=== PATIENT | female | born 1945 | race Caucasian/White ===

== ENCOUNTER → 2017-05-01 | Outpatient (CLI) | payer OTHER, BC ==
[~2017-05-01] MED LIST: ALEVE220 MG PO; ANTIVERT25 MG PO; BENICAR20 MG PO; CIPROFLOXACIN500 M1 PO; COZAAR 50 MG TA50 M2 PO; KOMBIGLYZE XR1 EAC1 PO; KOMBIGLYZE XR1 EACH PO; LOVASTAT10 PO; LOVASTAT40 PO; MELATONIN5 M4 PO; MUCINEX TA600 MG/TA2 PO; NORCO 5-325 TA1 EACH PO; PREDNISONE 20 M20 M1 PO; PROVENTIL HFA6.7 G1 INH; SERTRALINE HCL50 MG PO; SYMBICORT160 MCG/4. INH; TESSALON PERLE100 MG PO; TRAMADOL 50 MG50 MG PO; VENTOLIN HFA 1818 GM INH; ZPAK PO
--- NOTE | ~2017-05-01 | EKG ---
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
== END ==
LOC: CV 11:23
DX: M47.894 Other spondylosis, thoracic region (principal); I51.7 Cardiomegaly; E11.9 Type 2 diabetes mellitus without complications; I10 Essential (primary) hypertension; E78.00 Pure hypercholesterolemia, unspecified; E66.01 Morbid (severe) obesity due to excess calories; G47.30 Sleep apnea, unspecified; Z68.44 Body mass index [BMI] 60.0-69.9, adult

== ENCOUNTER 2017-08-08 09:15 | Emergency (ER) | payer OTHER, BC ==
[~2017-08-08] VITALS: Ht 149.9 cm; Wt 113.4 kg
[~2017-08-08 09:15] MED LIST changes: +ASPIR 8181 MG PO; +CALCIUM CA1250 MG/5 PO; +CENTRUM MU9 MG/15 ML PO; +ENOXAPARIN150 MG/11 SUBQ; +FAMOTIDINE40 MG/5 ML PO; +FERROUS SU220 MG/52 PO; +FLORANEX GRANU1 EACH PO; +HYDROCORTISONE30 G9 TOP; +LOPRESSOR25 PO; +METFORMIN HCL500 MG PO; +MIRALAX17 GM PO; +NYAMYC15 GM TOP; +PACERONE 200 M200 M1 PO; +RESTORIL7.5 MG PO; +TRADJENTA5 MG PO; +VITAMIN B-1100 M2 PO; +VITAMIN B-12500 MCG PO; +VITAMIN D3400 UNIT PO; +ZOFRAN ODT4 MG DISSOLVE
[2017-08-08 09:56] LABS: ABSOLUTE NEUTROPHILS 4.8 thou/uL (1.4-8.2); BASOPHILS 0.8 % (0.0-2.0); EOSINOPHILS 1.8 % (0.0-3.0); HEMATOCRIT 43.2 % (37.0-47.0); HEMOGLOBIN 13.8 gm/dL (12.0-15.0); LYMPHOCYTES 21.7 % (24.0-44.0); MCH 28.4 pg (26.0-34.0); MCHC 31.9 g/dL (28.0-37.0); MCV 88.9 fL (80.0-100.0); MONOCYTES 9.6 % (1.0-8.0); PLATELET COUNT 232 thou/uL (150-400); POLYS 66.1 % (36.0-66.0); RBC 4.86 mil/uL (4.20-5.00); WBC 7.2 thou/uL (4.0-11.0)
[2017-08-08 09:59] LABS: CALCIUM 9.8 mg/dL (8.5-10.1); CREATININE 1.2 mg/dL (0.6-1.0)
[2017-08-08] MEDS ORDERED: COZAAR 25 MG TA25 M1 PO (10:42)
[2017-08-08] MEDS ORDERED: SYNTHROID25 MCG PO (10:43)
[2017-08-08 11:19] LABS: URINE BILIRUBIN NEGATIVE (Negative); URINE BLOOD TRACE (Negative); URINE CLARITY CLEAR; URINE COLOR YELLOW; URINE GLUCOSE-RANDOM* NEGATIVE (Negative); URINE KETONES NEGATIVE (Negative); URINE LEUKOCYTES-REFLEX 3+ (Negative); URINE NITRITE-REFLEX NEGATIVE (Negative); URINE PROTEIN (DIPSTICK) NEGATIVE (Negative); URINE UROBILINOGEN 0.2 E.U./dl (0.2-1.0)
[2017-08-08] MEDS ORDERED: NORCO 5-325 TA1 EACH PO (11:21)
[2017-08-08] MEDS ORDERED: SENNA-DOCUSATE1 EACH PO (11:21)
[2017-08-08 11:33] LABS: CASTS None Seen /LPF (None Seen); SQUAMOUS 0-3 Few /LPF (0-3); URINE RBC 0-2 Rare /HPF (0-2)
[2017-08-08 11:34] LABS: CRYSTALS None Seen /LPF (None Seen); WBC CLUMPS Moderate (None Seen)
[2017-08-08] MEDS ORDERED: KEFLEX500 M1 PO (12:01)
[2017-08-08 12:37] VITALS: BP 142/81
== END 2017-08-08 12:30 | disposition home or self-care (01) ==
LOC: ER 09:15
PROVIDERS: Emergency Medicine
DX: S30.0XXA Contusion of lower back and pelvis, initial encounter (principal); S70.02XA Contusion of left hip, initial encounter; N39.0 Urinary tract infection, site not specified; I10 Essential (primary) hypertension; E78.00 Pure hypercholesterolemia, unspecified; G47.30 Sleep apnea, unspecified; E11.9 Type 2 diabetes mellitus without complications; Z90.49 Acquired absence of other specified parts of digestive tract; Z90.710 Acquired absence of both cervix and uterus; Z88.5 Allergy status to narcotic agent; Z91.040 Latex allergy status; Z87.891 Personal history of nicotine dependence; W01.0XXA Fall on same level from slipping, tripping and stumbling without subsequent striking against object, initial encounter; Y93.89 Activity, other specified; Y92.89 Other specified places as the place of occurrence of the external cause; Y99.8 Other external cause status

== ENCOUNTER 2017-12-15 04:28 | Emergency (ER) | payer OTHER, BC ==
[~2017-12-15] VITALS: Ht 149.9 cm; Wt 99.3 kg
[~2017-12-15 04:28] MED LIST changes: +COZAAR 25 MG TA25 M1 PO; +KEFLEX500 M1 PO; +SENNA-DOCUSATE1 EACH PO; +SYNTHROID25 MCG PO
[2017-12-15] MEDS ORDERED: XARELTO10 MG PO (04:38)
[2017-12-15] MEDS ORDERED: LOPRESSOR50 PO (04:38)
[2017-12-15] MEDS ORDERED: CERTRALINE (04:41)
[2017-12-15] MEDS ORDERED: TRAMADOL 50 MG50 MG PO (04:41)
[2017-12-15] MEDS ORDERED: NORCO 5-325 TA1 EACH PO (05:17)
== END 2017-12-15 06:15 | disposition home or self-care (01) ==
LOC: ER 04:28
DX: S62.102A Fracture of unspecified carpal bone, left wrist, initial encounter for closed fracture (principal); S93.402A Sprain of unspecified ligament of left ankle, initial encounter; W01.0XXA Fall on same level from slipping, tripping and stumbling without subsequent striking against object, initial encounter; Y93.89 Activity, other specified; Y92.89 Other specified places as the place of occurrence of the external cause; Y99.8 Other external cause status; I10 Essential (primary) hypertension; E78.00 Pure hypercholesterolemia, unspecified; E11.9 Type 2 diabetes mellitus without complications; E66.2 Morbid (severe) obesity with alveolar hypoventilation; I48.91 Unspecified atrial fibrillation; Z87.891 Personal history of nicotine dependence; Z88.5 Allergy status to narcotic agent

== ENCOUNTER → 2019-11-19 | Outpatient (CLI) | payer OTHER ==
[~2019-11-19] MED LIST changes: +CERTRALINE; +LOPRESSOR50 PO; +XARELTO10 MG PO
== END ==
LOC: SJCVC 13:32
DX: Z01.818 Encounter for other preprocedural examination (principal); I48.21 Permanent atrial fibrillation; R94.31 Abnormal electrocardiogram [ECG] [EKG]; E78.00 Pure hypercholesterolemia, unspecified; E11.69 Type 2 diabetes mellitus with other specified complication; E66.9 Obesity, unspecified; D68.59 Other primary thrombophilia; Z90.49 Acquired absence of other specified parts of digestive tract; Z90.710 Acquired absence of both cervix and uterus; Z79.899 Other long term (current) drug therapy; Z87.891 Personal history of nicotine dependence

== ENCOUNTER → 2020-01-16 | Outpatient (CLI) | payer OTHER | LOC: SJCVCIMAG 12-24 07:40 | PROVIDERS: ATTEND Internal Medicine Cardiovascular Disease | DX: Z01.818 Encounter for other preprocedural examination (principal); I08.1 Rheumatic disorders of both mitral and tricuspid valves; I11.9 Hypertensive heart disease without heart failure; I49.3 Ventricular premature depolarization; I48.19 Other persistent atrial fibrillation; E11.9 Type 2 diabetes mellitus without complications; Z79.899 Other long term (current) drug therapy; Z87.891 Personal history of nicotine dependence ==

== ENCOUNTER → 2020-09-01 | Outpatient (CLI) | payer OTHER | LOC: SJCVC 12:48 | PROVIDERS: ATTEND Internal Medicine Cardiovascular Disease | DX: R94.31 Abnormal electrocardiogram [ECG] [EKG] (principal); I45.2 Bifascicular block; I48.21 Permanent atrial fibrillation; I10 Essential (primary) hypertension; E78.00 Pure hypercholesterolemia, unspecified; D68.59 Other primary thrombophilia; I42.9 Cardiomyopathy, unspecified; I77.1 Stricture of artery; E11.9 Type 2 diabetes mellitus without complications; E03.9 Hypothyroidism, unspecified; E66.01 Morbid (severe) obesity due to excess calories; G47.30 Sleep apnea, unspecified; F32.9 Major depressive disorder, single episode, unspecified; Z79.899 Other long term (current) drug therapy ==

== ENCOUNTER → 2020-09-15 | Outpatient (CLI) | payer OTHER | LOC: SJCVCIMAG 08:46 | PROVIDERS: ATTEND Internal Medicine Cardiovascular Disease | DX: I77.1 Stricture of artery (principal); I73.9 Peripheral vascular disease, unspecified; M79.604 Pain in right leg; M79.605 Pain in left leg; Z87.891 Personal history of nicotine dependence ==

== ENCOUNTER 2020-12-09 19:30 | Inpatient (IN) | payer OTHER ==
[~2020-12-09] VITALS: Ht 144.8 cm; Wt 91.2 kg
[~2020-12-09 19:30] MED LIST changes: -LOPRESSOR50 PO; +TOPROL XL100 MG PO
[2020-12-09 19:32] VITALS: BP 195/107
[2020-12-09 21:30] VITALS: BP 195/107
[2020-12-09 22:03] LABS: ABSOLUTE NEUTROPHILS 6.1 thou/uL (1.4-8.2); BASOPHILS 0.3 % (0.0-2.0); EOSINOPHILS 0.8 % (0.0-3.0); HEMATOCRIT 40.4 % (37.0-47.0); LYMPHOCYTES 16.1 % (24.0-44.0); MCH 29.1 pg (26.0-34.0); MCHC 32.2 g/dL (28.0-37.0); MCV 90.6 fL (80.0-100.0); PLATELET COUNT 198 thou/uL (150-400); POLYS 74.8 % (36.0-66.0); RBC 4.46 mil/uL (4.20-5.00); RDW 15.3 % (10.5-14.5); WBC 8.1 thou/uL (4.0-11.0)
[2020-12-09 22:26] LABS: ALBUMIN 3.2 g/dL (3.4-5.0); CALCIUM 8.7 mg/dL (8.5-10.1); CREATININE 1.2 mg/dL (0.6-1.0); POTASSIUM 4.9 mmol/L (3.5-5.1); TOTAL BILIRUBIN 0.5 mg/dL (0.2-1.0); TOTAL PROTEIN 7.2 g/dL (6.4-8.2)
--- NOTE | 2020-12-09 22:50 | NUR ---
ATTEMPTED TO GIVE REPORT AT 2250. WAS TOLD TO CALL BACK IN 5 MINS.
[2020-12-09 23:11] VITALS: BP 176/82
[2020-12-09 23:45] VITALS: BP 155/86
--- NOTE | 2020-12-10 04:33 | NUR ---
PT WAS ADMITTED TO THE UNIT FROM THE ER IN A STABLE CONDITION.ADMISSION HX,EDUCATION AND ASSESSMENT COMPLETED.PAIN MANAGED WITH MED.SPLINT ON HER L ARM,ICE BAG IN PLACE.EXTERNAL FEMALE CATH IN PLACE WITH ADEQUATE URINE OUTPUT.PT WITH HX OF AFIB,ON XARELTO.REDNESS TO HER BUTTOCKS,ZGUARD APPLIED.IVF INFUSING ORDERED.CALL LIGHT WITHIN REACH.
--- NOTE | 2020-12-10 07:06 | EKG ---
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 : 1945 Requested By: Maximus Singh Order Number: [id number] MD: Uday Cota Measurements Intervals [place] Rate: 92 P: VT: QRS: 174 QRSD: 94 T: 28 QT: 346 QTc: 429 Interpretive Statements Atrial fibrillation Anteroseptal infarct, age indeterminate Compared to ECG 05/04/2017 06:13:07 Myocardial infarct finding now present Ventricular premature complex(es) no longer present Right-axis deviation no longer present Electronically Signed On 12-10-2020 7:05:53 CDT by Uday Cota [email or web address] <ELECTRONICALLY SIGNED> By: Uday Cota MD, FAC 12/10/2005 32 32 Uday Cota MD, [facility] /EPI
--- NOTE | 2020-12-10 08:47 | NUR ---
Chart review. YOSEF visited with kam at bedside, she is A & o self, place and time. She has hx of fall, has [facility] duty from [employer] Sunday, sunday, and sunday for 2-3 hrs per day. 2nd time she as brook left arm. she was outside pulling weeds and fell. Had [facility] in past and is agreeable to both if needed. Lives alone at home. no stairs. has cane and walker. Manage own medication and drives vehicle. Has daughter maritza and grandshari jacinto in area if needs assistance. Yosef spoke with bedside nurse, patient going to require surgery per ortho. kam reported pain 20/10 and was tearful, cm passed on information to bedside nurse and hospitalist going to see patient. will cont following as needed for dc needs.
[2020-12-10 09:32] VITALS: BP 188/106
[2020-12-10 18:06] VITALS: BP 174/110
--- NOTE | 2020-12-10 18:30 | NUR ---
PT ASSESSED AT START OF SHIFT. VERY PAINFUL THIS AM BUT WAS ABLE TO GET MED CHANGED TO ALLOW GOOD PAIN RELIEF. PT ABLE TO SLEEP WELL AND IS FEELING MUCH BETTER. DR. LOPEZ IN TO SEE PT AND HAD MAINS AND SERVICE SUPERVISOR FROM [facility] HER LT WRIST. PLAN FOR SURGERY TOMORROW BUT NO TIME YET.
[2020-12-10 20:57] VITALS: BP 166/90
[2020-12-11] VITALS (7 sets, daily range): BP systolic 132–194; BP diastolic 61–113
--- NOTE | 2020-12-11 00:17 | NUR ---
PT WAS CONFUSED AT SHIFT CHANGE.SHE SATTED THAT SHE TALKED WITH DTR AT 1900 AND THOUGHT THAT IT WAS 0700.PT REORIENTED TO THE CURRENT TIME.PT VERY ANXIOUS TEARFUL ABOUT HER UPCOMING SX,EMOTIONAL SUPPORT GIVEN.L HAND STILL WITH A SPLINT,PT ABLE TO WIGGLE AND FEEL HER FINGERS WHEN TOUCHED.PT'S PAIN WELL CONTROLLED NOW WITH CURRENT MED.ICE PACK TO HER L ARM,ELEVATED WITH A PILLOW. EXT FEMALE CATH IN PLACE.PT NPO AT THIS TIME FOR SX LATER IN THE DAY.CALL LIGHT WITHIN REACH.
--- NOTE | 2020-12-11 08:26 | NUR ---
Assumed pt care at 7am.Pt in bed very anxious about going for surgery this am. Assurance given by rn. Received call from sebastián that pt will be picking up before 830am. Pt notified and also called her family.Assessment completed.vss. Oral med given for bp prior to pt left per bed for surgery at 0820.Will continue to monitor.
--- NOTE | 2020-12-12 01:10 | NUR ---
PT JORGE CLEAR LIQUIDS POST OP.PAIN MANGED WITH MED.PT OBSERVED TO BE CONFUSED WHEN SHE WOKE UP AT [place],REORIENTED.DRSG TO HER L WRIST DRY AND INTCAT,ELEVATED WITH PILLOW.ICE PACK TO HER L ARM.EXT FEMALE CATH IN PLACE.BLISTER NOTED TO HER R HIP,STILL INTACT.PT ON 2L/NC FOR COMFORT.CALL LIGHT WITHIN REACH.
[2020-12-12 03:15] VITALS: BP 158/95
[2020-12-12 05:42] LABS: POTASSIUM 4.1 mmol/L (3.5-5.1)
--- NOTE | 2020-12-12 09:25 | NUR ---
Assumed care of pt at 0700. Pt a&ox4. Pain controlled with prn pain meds. Dressing c/d/i. Pt states she takes tramadol bid at home. Provider paged. Awaiting call back. Call light within reach. Fall precautions in place. Will continue to monitor.
[2020-12-12] MEDS ORDERED: NORCO5 PO (10:41)
[2020-12-12 11:37] VITALS: BP 151/94
[2020-12-12 12:04] VITALS: BP 151/94
--- NOTE | 2020-12-13 12:08 | HC ---
[facility] [address] [place] [address] CONSULTATION Name: ROBERTO ORELLANA Room #: 443-P [facility] IN M.R.#: [id number] Admission: 12/09/20 Attend Phys: Sandy Vu Henderson Discharge: 12/12/20 Date of : 49 Report #: [id number] THIS REPORT FOR: cc: Bryant Sprague MD, Rene P. MD Deardorff, Valerie A. MD ~ DOC #: [id number] Anita Short MD DATE OF SERVICE: 12/10/2020 ORTHOPEDIC CONSULT NOTE REASON FOR CONSULTATION: Left wrist fracture. HISTORY OF PRESENT ILLNESS: The patient is a 75-year-old female who fell on the night of the late sustained a displaced distal radius fracture with DRUJ injury, was evaluated in the emergency department and due to pain level was unable to be discharged. She was then admitted for pain control and I was asked to see the patient. I saw the patient around noon on 12/10/2020. She reports left shoulder aching, but reports that she does not feel like she has any fractures in her left shoulder, reports significant hand pain. Reports some mild tingling in the fingers. PAST MEDICAL HISTORY: Significant for hypertension, hypothyroidism, and history of atrial fibrillation. ALLERGIES: CODEINE AND CONTRAST DYE. REVIEW OF SYSTEMS: NEUROLOGIC: Reports some mild tingling in her fingers on the left. MUSCULOSKELETAL: See HPI. MEDICATIONS: The patient reports taking Synthroid, losartan, Xarelto, another type of blood pressure medication she cannot recall and tramadol. Medical record also shows sertraline. SOCIAL HISTORY: She lives by herself in a fully handicapped accessible home, is right hand dominant. Does not use any ambulatory aids. Smokes and drinks very occasionally in social situations. SURGICAL HISTORY: Gastric bypass surgery. LABORATORY DATA: Laboratory studies done on the date of admission show white blood cell count 8.1, hemoglobin 13, hematocrit 40.4, platelet count 198. Chemistry on the date of admission shows a slightly elevated creatinine of 1.2, slightly elevated glucose of 119, and albumin is slightly low at 3.2. [facility] [address] [place] [address] CONSULTATION Name: ROBERTO ORELLANA Room #: 443-P [facility] IN [facility].#: [id number] Admission: 12/09/20 Attend Phys: Sandy Henderson Discharge: 12/12/20 Date of : 49 Report #: [id number] test is negative. PHYSICAL EXAMINATION: GENERAL: The patient is alert and oriented, interacts appropriately. She is a well-developed, well-nourished female in moderate distress when I saw her on Sunday. Minimal distress when I saw her on Sunday morning. On Sunday, she was lying in her bed. VITAL SIGNS: Most recent vital signs show temperature of 36.8, pulse rate 88, respiratory rate 18, blood pressure 144/78, pulse oximetry 96% on room air. EXTREMITIES: Examination of her right upper extremity, she is distally neurovascularly intact. Brisk capillary refill, grossly normal sensation and motor intact. Left upper extremity, on Sunday she was placed in a sugar tong splint, which increased her deformity and was creating tension on the ulnar side of her wrist creating significant amount of pain. The compartments were soft. She had some abrasions on the ulnar side of her wrist with no significant bleeding. She had some ecchymosis and edema to her wrist and fingers. She is able to wiggle her fingers and move her thumb. Grossly normal sensation and motor. Her elbow is nontender. The shoulder was nontender. Mild pain with range of motion of the shoulder. On Sunday morning when I saw her, she had been placed into a volar and dorsal slab splint. Reported significant improvement in her pain in her arm overnight and reportedly slept for eight hours. She still was neurovascularly intact, was able to wiggle her fingers and thumb more easily. Bilateral lower extremity exam: Sensation is grossly intact to light touch, grossly normal sensation and motor intact. No tenderness to palpation throughout the bilateral lower extremities or right upper extremity. RADIOGRAPHS: AP and lateral of the left hip is suboptimal. X-ray does not show any definite fracture. AP, oblique and scapular Y views of the shoulder show significant glenohumeral arthrosis with rotator cuff arthropathy. X-ray AP, lateral and oblique, of the left wrist shows a comminuted fracture of the metadiaphyseal junction of the radius with a small radial styloid fragment with significant ulnar angulation and moderate dissociation of the DRUJ. There is some small avulsion fragments from the ulnar styloid. IMPRESSION AND PLAN: Left distal radius fracture with significant deformity. The typical procedure as well as postoperative course was discussed with the patient. I recommend surgical stabilization with a volar approach to the radius. We discussed location of the incision, possible pinning of the distal radial ulnar joint. If the pins were placed, they will be removed at approximately the 6-week point. The risks, benefits, alternatives, and complications were discussed including but not limited to stiffness, infection, damage to vessels or nerves, nonunion, malunion, hardware failure, hardware irritation. She elects for surgical treatment. Questions were encouraged and answered to the best of my ability. [address] [place] [address] CONSULTATION Name: ROBERTO ORELLANA Room #: 443-P [facility] IN M.R.#: [id number] Admission: 12/09/20 Attend Phys: Sandy Henderson Discharge: 12/12/20 Date of : 49 Report #: [id number] Thank you very much for allowing me to participate in the care of this patient. MD CHRIS Melchor/LEO <ELECTRONICALLY SIGNED> By: Anita Shotr MD 12/13/20 1208 0716 1939 Anita Short MD /nt
--- NOTE | 2020-12-13 12:08 | O ---
[facility] [address] [place] [address] OPERATIVE REPORT Name: ROBERTO ORELLANA Room #: 443-P [facility] IN M.R.#: [id number] Admission: 12/09/20 Attend Phys: Sandy Womack Beatriz Discharge: 12/12/20 Date of : 49 Report #: [id number] THIS REPORT FOR: cc: Bryant Sprague MD, Rene P. MD Deardorff, Valerie A. MD ~ DOC #: [id number] Anita Short MD DATE OF SERVICE: 12/11/2020 PREOPERATIVE DIAGNOSIS: Left distal radius fracture, intra-articular with 2 fragments, possible distal radial ulnar joint disruption. POSTOPERATIVE DIAGNOSIS: Left distal radius fracture, intra-articular with 2 fragments, possible distal radial ulnar joint disruption. PROCEDURE PERFORMED: Open reduction and internal fixation left distal radius fracture, intra-articular, 2 fragments. SURGEON: Anita Short MD. TYPE OF ANESTHESIA: General mask anesthesia. ESTIMATED BLOOD LOSS: Minimal. TOURNIQUET TIME: 70 minutes. COMPLICATIONS: None. CONDITION: Stable. DISPOSITION: To the recovery room. IMPLANTS USED: Synthes distal radius extraarticular plate. INDICATIONS: The patient is a 75-year-old female with the above-mentioned diagnosis. She elects for operative treatment. The risks, benefits, alternatives and complications were discussed including but not limited to infection, damage to vessels or nerves, and incomplete relief or worsening of any symptoms, nonunion, malunion, hardware failure, hardware irritation. Informed consent was obtained. The correct extremity was identified and labeled by myself after verbal confirmation of the patient as well as visual confirmation and signed informed consent. DESCRIPTION OF PROCEDURE: The patient was brought back to the operating room and placed in the supine position. She received preoperative antibiotics. [address] [address] OPERATIVE REPORT Name: ORELLANAROBERTO Room #: 443-P [facility] IN M.R.#: [id number] Admission: 12/09/20 Attend Phys: Sandy Henderson Discharge: 12/12/20 Date of : 49 Report #: [id number] Tourniquet was placed over padding. The left lower extremity was sterilely prepped and draped in the usual fashion. Final timeout was taken to verify correct patient, operative procedure, operative site, all concurred. The arm was elevated, exsanguinated and the tourniquet inflated. Next, a volar approach was done at the distal radius over the FCR tendon. Of note, prior to the surgical incisions, the ulnar-sided wounds were evaluated. These were superficial abrasions. The dissection was carried down through subcutaneous tissue with tenotomy scissors. The FCR tendon sheath was identified and incised. The subsheath was incised and the volar contents were retracted ulnarly. The area was cleaned of clot and debris. The brachioradialis was creating significant difficulty in restoring alignment, so it was lengthened. A lobster claw was placed around the proximal portion of the radius in order to supinate the forearm. Her bone was fairly small. Next, fluoroscopy was brought in and the fracture was reduced quite nicely. The ulnar column was able to be reduced nearly anatomically. There was a very large gap in the cortical and cancellous bone on the radial side at this level. Next, an extraarticular plate was placed on to the bone. The position was checked under fluoroscopy and a cortical screw was placed in the gliding hole proximally. Next, the fracture was reduced due to the difficulty in maintaining the reduction. Two K-wires were placed into the 2 of the distal holes in the plate. Once this was performed, the fracture reduction was able to be maintained. Two distal locking screws were drilled, measured, and appropriate size screws were placed and the wires were removed and the other two screws were drilled, measured, and the appropriate size screws were placed. The plate was fitted nicely down to the bone and the alignment was appropriate. It should be noted that the patient has had multiple fractures in that arm. I reviewed the position of her radius after the most recent fracture in 2018, which showed a significant amount of radial shortening and loss of radial inclination as her baseline prior to this new injury. The AP and lateral views showed good position of the fracture and good position of the screws, taking care to avoid any dorsal penetration of the bone. Next, two locking screws were placed proximally. These were found to be in good position and were stable. The wound was then thoroughly irrigated. AP, lateral tilt and live fluoroscopic views showed good position of the fracture and the hardware. The DRUJ was assessed. It was stable in all planes of rotation and on the lateral view, there was no dislocation with stress on the DRUJ. I elected to not place pins across it and to maintain her in supination. The wound was then thoroughly irrigated. Approximately, 0.8 mL of demineralized bone matrix was placed into the defect. The skin was then closed with 4-0 nylon suture. The wound was dressed with Xeroform including the ulnar-sided abrasions and sterile gauze. She was placed in a bulky dressing and a volar and dorsal slab splint with a dorsal slab splint went all the way past the elbow in order to maintain some level of supination. She was placed into full supination. All fingers were pink and brisk capillary refill at the conclusion of the case after deflation of tourniquet down, after application of the dressing. All sponge and needle counts were correct. The [facility] [address] [place] [address] OPERATIVE REPORT Name: ROBERTO ORELLANA Room #: 443-P [facility] IN .R.#: [id number] Admission: 12/09/20 Attend Phys: Sandy Henderson Discharge: 12/12/20 Date of : 49 Report #: [id number] patient transferred to postop recovery in stable condition. MD CHRIS Melchor/THOR <ELECTRONICALLY SIGNED> By: Anita Short MD 12/13/20 1208 0941 1046 Anita Short MD /nt
== END 2020-12-12 14:35 | disposition home health service (06) | DRG 512 ==
LOC: ER 19:30 → 4S 21:21 → EROBS 21:21 → 4S 12-10 00:03
PROVIDERS: Nurse Practitioner; Orthopaedic Surgery Hand Surgery; ADMIT Hospitalist; ATTEND Hospitalist
PROC: 2W3BX1Z Immobilization of Left Upper Arm using Splint (ICD-10-PCS; 2020-12-09)
PROC: 0PSJ04Z Reposition Left Radius with Internal Fixation Device, Open Approach (ICD-10-PCS; principal; 2020-12-11)
DX: S52.572A Other intraarticular fracture of lower end of left radius, initial encounter for closed fracture (principal); I10 Essential (primary) hypertension; E78.00 Pure hypercholesterolemia, unspecified; I48.91 Unspecified atrial fibrillation; G47.33 Obstructive sleep apnea (adult) (pediatric); E11.9 Type 2 diabetes mellitus without complications; E78.5 Hyperlipidemia, unspecified; E03.9 Hypothyroidism, unspecified; F41.9 Anxiety disorder, unspecified; F32.9 Major depressive disorder, single episode, unspecified; W18.39XA Other fall on same level, initial encounter; Z20.822 Contact with and (suspected) exposure to COVID-19; Z99.81 Dependence on supplemental oxygen; Z90.710 Acquired absence of both cervix and uterus; Z90.49 Acquired absence of other specified parts of digestive tract; Z86.718 Personal history of other venous thrombosis and embolism; Z98.84 Bariatric surgery status; Z79.899 Other long term (current) drug therapy; Z88.5 Allergy status to narcotic agent; Z91.041 Radiographic dye allergy status; Y93.89 Activity, other specified; Y92.89 Other specified places as the place of occurrence of the external cause; Y99.8 Other external cause status
CPT/HCPCS: 10195; 50101; 50386; 51008; 56526; 57006; 57091; 57178; 58815; 58816; 58817; 58819; 58820; 62110; 62900; 70005

== ENCOUNTER 2021-02-06 20:43 | Emergency (ER) | payer OTHER ==
[~2021-02-06] VITALS: Ht 157.5 cm; Wt 81.7 kg
--- NOTE | ~2021-02-06 | EMS ---
[address] [address] EMS Patient Care Report Name: ROBERTO ORELLANA Room #: DEP STEVEN James#: [id number] Admission: 02/06/21 Attend Phys: Discharge: 02/06/21 Date of : 49 Report #: [id number] THIS REPORT FOR: //name// Report Transmitted: 02/07/2021 14:50 EMS Care Summary [facility] Incident [id number] @ 02/06/2021 19:52 Incident Location [facility] [address] [place] [address] Patient ROBERTO MITCHELL Female, 75 Years 1945 Patient Address [address] [place] [address] Patient History Atrial Fibrillation, Patient Allergies No known allergies, Patient Medications None Reported, Chief Complaint MY LEFT LEG HURTS Disposition Transported No Lights/[place] Dispatch Reason Sick Person Transported To [facility] Narrative SQUAD 52 DISPATCHED TO A SICK CASE AOS TO FIND A 75 Y/O FEMALE SITTING UPRIGHT IN HER LIVINGROOM STATING THAT ABOUT 30 MIN AGO HER LEFT LEG STARTED HURTING AND SHE COMPARED THE FEELING TO A [address] [address] EMS Patient Care Report Name: ROBERTO ORELLANA Room #: DEP Erika#: [id number] Admission: 02/06/21 Attend Phys: Discharge: 02/06/21 Date of : 49 Report #: [id number] MALICK HORSE. PT DENIES ANY RECENT TRAUMA, LOC, BORGES, NVD, SOB, CP WITH A GCS OF 15. PT DENIES THE PAIN RADIATING ANYWHERE ELSE. INITIAL EXAM REVEALED AIRWAY INTACT,PUPILS PERRL, TRACHEA MID-LINE, LUNG SOUNDS CLEAR X 4 BILAT, ABD SNT WITH NO MASES NOTED, STRONG DISTAL PULSES PRESENT IN ALL EXTREMITIES. ALL VS ARE ELEVATED FO RPT AT THIS TIME. PT STATED THAT SHE STOPPED TAKING HER A-FIB MEDS AND HAS YET TO TAKE HER HIGH BP MEDS TODAY. WHILE EN ROUTE RADIO REPORT GIVEN TO [facility], ONGOING EXAM PERFORMED AND NO OTHER ISSUES WERE NOTED, 18G IV PLACED IN HER RAC AND FLUSHED WITH 10ML OF NACI. ALL VS REASSESSED AND ALL VS REMAINED UNCHANGED AT THIS TIME. WE ARRIVED AT OUR DESTINATION AND TRANSFERRED PT CARE OVER TO RN Initial Vitals @19:59P: 88,R: 18,BP: 190/100,Pain: 2/10,GCS: 15,SpO2: 98,Revised Trauma: 12, @20:09P: 98,R: 19,BP: 188/74,Pain: 4/10,GCS: 15,SpO2: 99,Revised Trauma: 12,SD Suspected: false Assessments @20:03MENTAL:No Abnormalities,SKIN:No Abnormalities,HEENT:Head/Face: No Abnormalities,Eyes: No Abnormalities,Neck/Airway: No Abnormalities,LUNG SOUNDS:General: No Abnormalities,Left Upper: No Abnormalities,Right Upper: No Abnormalities,Left Lower: No Abnormalities,Right Lower: No Abnormalities,ABDOMEN:General: No Abnormalities,Left Upper: No Abnormalities,Right Upper: No Abnormalities,Left Lower: No Abnormalities,Right Lower: No Abnormalities,PELVIS//GI:No Abnormalities,EXTREMITIES:Left Arm: No Abnormalities,Right Arm: No Abnormalities,Left Leg: No Abnormalities,Right Leg: No Abnormalities,PULSE:NEURO:No Abnormalities, Impression Extremity Pain Procedures @20:08Saline Lock 10cc (18 ga) Site: Forearm-LeftResponse: UnchangedSucceeded@20:08ALS AssessmentResponse: UnchangedSucceeded@20:093-Lead ECGResponse: UnchangedSucceeded@20:0915-Lead ECGResponse: UnchangedSucceeded Timeline 19:49,Call Received 19:49,Psap Call 19:52,Dispatched 19:53,En Route 19:54,Initial Responder On Scene 19:56,On Scene 19:57,At Patient 19:59,BP: 190/100 M,PULSE: 88,RR: 18 R,SPO2: 98 Ox,ETCO2: ,BG: ,PAIN: 2,GCS: 15, 20:08,Saline Lock 10cc 18 ga Site: Forearm-Left,Response: UnchangedSucceeded, [facility] [address] [place] [address] EMS Patient Care Report Name: KIMANI ORELLANACHARLESRENATO BRIANNA Room #: DEP Erika#: [id number] Admission: 02/06/21 Attend Phys: Discharge: 02/06/21 Date of : 49 Report #: [id number] 20:08,ALS Assessment,Response: UnchangedSucceeded, 20:09,3-Lead ECG,Response: UnchangedSucceeded, 20:09,15-Lead ECG,Response: UnchangedSucceeded, 20:09,BP: 188/74 M,PULSE: 98,RR: 19 R,SPO2: 99 Ox,ETCO2: ,BG: ,PAIN: 4,GCS: 15, 20:18,Depart Scene 20:40,At Destination 20:49,Call Closed Disclaimer v1.1 Copyright 2020 [employer] This EMS Care Summary contains data elements from the applicable legal record (which may be displayed differently). It is designed to provide pertinent information for the following purposes: continuity of care, clinical quality, and state data reporting. The complete legal record is available to ED staff and administrators of the receiving hospital in ES's Patient Tracker. All data is provided "as is."
[~2021-02-06 20:43] MED LIST changes: +NORCO5 PO
[2021-02-06 21:26] LABS: HEMATOCRIT 37.4 % (37.0-47.0); HEMOGLOBIN 12.5 gm/dL (12.0-15.0); MCH 29.6 pg (26.0-34.0); MCHC 33.4 g/dL (28.0-37.0); MCV 88.7 fL (80.0-100.0); RBC 4.22 mil/uL (4.20-5.00); RDW 15.2 % (10.5-14.5); WBC 5.4 thou/uL (4.0-11.0)
[2021-02-06] MEDS ORDERED: LEVO-T75 MCG PO (21:34)
[2021-02-06 21:38] LABS: ANION GAP 8 mmol/L (7-16); BUN 34 mg/dL (7-18); CALCIUM 8.7 mg/dL (8.5-10.1); CHLORIDE 105 mmol/L (98-107); CO2 30 mmol/L (21-32); CREATININE 1.4 mg/dL (0.6-1.0); GLUCOSE 109 mg/dL (74-106); POTASSIUM 4.1 mmol/L (3.5-5.1); SODIUM 143 mmol/L (136-145)
[2021-02-06 21:49] LABS: ALBUMIN 2.8 g/dL (3.4-5.0); SGOT 23 U/L (15-37); SGPT 19 U/L (30-65); TOTAL BILIRUBIN 0.4 mg/dL (0.2-1.0); TOTAL PROTEIN 6.9 g/dL (6.4-8.2); TROPONIN-I <0.06 ng/mL (<0.06)
[2021-02-06 23:12] VITALS: BP 155/90
--- NOTE | 2021-02-07 07:35 | EKG ---
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 : 1945 Requested By: Kailyn Swain Order Number: [id number] MD: Uday Cota Measurements Intervals [place] Rate: 84 P: CT: QRS: 175 QRSD: 99 T: 24 QT: 356 QTc: 421 Interpretive Statements Atrial fibrillation Ventricular premature complex Right axis deviation Consider anterior infarct Compared to ECG 12/09/2020 22:33:14 Ventricular premature complex(es) now present Right-axis deviation now present Myocardial infarct finding still present Electronically Signed On 02-07-2021 7:35:15 CDT by Uday Cota [email or web address] <ELECTRONICALLY SIGNED> By: Uday Cota MD, [facility] 02/07/21734 55 55 Uday Cota MD, [facility] /EPI
== END 2021-02-06 23:26 | disposition home or self-care (01) ==
LOC: ER 20:43
PROVIDERS: Nurse Practitioner Family
DX: M79.605 Pain in left leg (principal); I10 Essential (primary) hypertension; E78.00 Pure hypercholesterolemia, unspecified; E11.9 Type 2 diabetes mellitus without complications; I48.91 Unspecified atrial fibrillation; Z90.49 Acquired absence of other specified parts of digestive tract; Z90.710 Acquired absence of both cervix and uterus; Z79.899 Other long term (current) drug therapy; Z87.891 Personal history of nicotine dependence; Z88.6 Allergy status to analgesic agent

== ENCOUNTER → 2021-03-25 | Outpatient (CLI) | payer OTHER ==
[~2021-03-25] MED LIST changes: +LEVO-T75 MCG PO
== END ==
LOC: NUC 13:31
PROVIDERS: ATTEND Family Medicine
DX: M81.0 Age-related osteoporosis without current pathological fracture (principal); Z78.0 Asymptomatic menopausal state

== ENCOUNTER 2021-04-11 01:05 | Inpatient (IN) | payer OTHER ==
[~2021-04-11] VITALS: Ht 144.8 cm; Wt 94.1 kg
[2021-04-11 01:07] VITALS: BP 180/75
[2021-04-11 01:49] LABS: ABSOLUTE NEUTROPHILS 7.2 thou/uL (1.4-8.2); BASOPHILS 0.6 % (0.0-2.0); EOSINOPHILS 0.2 % (0.0-3.0); HEMATOCRIT 43.6 % (37.0-47.0); HEMOGLOBIN 14.5 gm/dL (12.0-15.0); LYMPHOCYTES 13.3 % (24.0-44.0); MCH 29.4 pg (26.0-34.0); MCHC 33.2 g/dL (28.0-37.0); MCV 88.3 fL (80.0-100.0); MONOCYTES 8.3 % (1.0-8.0); PLATELET COUNT 224 thou/uL (150-400); POLYS 77.6 % (36.0-66.0); RBC 4.93 mil/uL (4.20-5.00); RDW 15.6 % (10.5-14.5); WBC 9.3 thou/uL (4.0-11.0)
[2021-04-11 01:56] LABS: CALCIUM 9.1 mg/dL (8.5-10.1); CREATININE 1.3 mg/dL (0.6-1.0)
[2021-04-11 01:57] LABS: POTASSIUM 5.2 mmol/L (3.5-5.1)
[2021-04-11 02:05] LABS: DIRECT BILIRUBIN 0.1 mg/dL (<0.1-0.2); TOTAL BILIRUBIN 0.8 mg/dL (0.2-1.0)
[2021-04-11 02:43] LABS: URINE BILIRUBIN NEGATIVE (Negative); URINE BLOOD 3+ (Negative); URINE CLARITY CLEAR; URINE COLOR YELLOW; URINE GLUCOSE-RANDOM* NEGATIVE (Negative); URINE KETONES NEGATIVE (Negative); URINE LEUKOCYTES-REFLEX 3+ (Negative); URINE NITRITE-REFLEX NEGATIVE (Negative); URINE PROTEIN (DIPSTICK) NEGATIVE (Negative); URINE UROBILINOGEN 0.2 E.U./dl (0.2-1.0)
[2021-04-11 03:12] LABS: CASTS None Seen /LPF (None Seen); CRYSTALS None Seen /LPF (None Seen); MUCUS 0-3 Light strn/LPF (None Seen); SQUAMOUS 0-3 Few /LPF (0-3); URINE RBC 3-10 Few /HPF (NONE SEEN)
[2021-04-11] MEDS ORDERED: METOPROLOL SUC100 MG PO (05:59)
[2021-04-11] MEDS ORDERED: XARELTO20 MG PO (05:59)
--- NOTE | 2021-04-11 07:20 | EKG ---
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: : 1945 Requested By: Wyatt Shafer Order Number: [id number] MD: Uday Cota Measurements Intervals [place] Rate: 88 P: [place]: QRS: 173 QRSD: 96 T: 13 QT: 361 QTc: 437 Interpretive Statements Atrial fibrillation Right axis deviation Low voltage, precordial leads Borderline T abnormalities, inferior leads Compared to ECG 02/06/2021 20:56:11 Low QRS voltage now present T-wave abnormality now present Ventricular premature complex(es) no longer present Electronically Signed On 04-11-2021 7:20:29 CDT by Uday Cota [email or web address] <ELECTRONICALLY SIGNED> By: Uday Cota MD, FACC 04/11/21 0720 1 0142 Uday Cota MD, FAC /EPI
[2021-04-11 11:44] VITALS: BP 140/85
[2021-04-11 11:45] VITALS: BP 146/76
[2021-04-11 12:15] VITALS: BP 117/60
[2021-04-11 16:20] VITALS: BP 122/68
--- NOTE | 2021-04-11 18:15 | NUR ---
PT ADMITTED FROM ER. ADMISSION HX AND ASSESSMENT COMPLETED. PT ORIENTED TO THE ROOM AND THE CALL LIGHT SYSTEM. NEW ORDERS NOTED. PRN PAIN MED GIVEN WITH PARTIAL RELIEF. NO CONCERNS AT THIS TIME.
[2021-04-11 20:27] VITALS: BP 126/64
--- NOTE | 2021-04-12 02:50 | NUR ---
ASSUMED PT CARE THIS PM. PT IS ALERT AND ORIENTEDX4. PT IS SOMETIMES CONFUSED AND WAS INCONTINENT. PT INSISTED ON WEARNG BRIEFS IN BED. PT HAS DISTENDED ABD BUT DENIED ANY FORM OF CONGESTION/CONSTIPATION. PT IS ON RA. PT IS CURRENTLY ON NPO. FALL PRECAUTIONS IN PLACE. WILL CONTINUE TO MONITOR.
[2021-04-12 05:44] LABS: HEMATOCRIT 41.9 % (37.0-47.0); HEMOGLOBIN 13.4 gm/dL (12.0-15.0); MCH 28.7 pg (26.0-34.0); MCHC 31.9 g/dL (28.0-37.0); MCV 90.1 fL (80.0-100.0); RBC 4.65 mil/uL (4.20-5.00); RDW 15.5 % (10.5-14.5); WBC 6.8 thou/uL (4.0-11.0)
[2021-04-12 05:52] LABS: CALCIUM 8.6 mg/dL (8.5-10.1); CREATININE 1.1 mg/dL (0.6-1.0); POTASSIUM 3.9 mmol/L (3.5-5.1)
--- NOTE | 2021-04-12 07:29 | EKG ---
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 04/12/21 0729 15 15 Uday Cota MD, FACC /EPI
[2021-04-12 08:03] VITALS: BP 118/72
[2021-04-12 16:47] VITALS: BP 108/46
--- NOTE | 2021-04-12 18:38 | NUR ---
ASSUMED CARE OF PT AT 0700. PT IS ALERT AND ORIENTED, VSS THROUGHOUT THE AM. PT IS NPO FOR HERNIA REPAIR PROCEDURE TODAY AND PRESENTS WITH A LARGE UMBILICAL HERNIA WITH MULTIPLE LOOPS, ABDOMEN EXTREMELY DISTENDED. PT WAS AT HERNIA REPAIR PROCEDURE THROUGHOUT THE DAY UNTIL ABOUT 1530, ANOTHER RN TOOK REPORT FROM PACU NURSE. THROUGHOUT THE AFTERNOON PT HAS BEEN EXTREMELY ANXIOUS, VSS, AND WEARING ABDOMINAL BINDER WITH SIGNIFICANTLY LESS DISTENSION. PT IS FEELING HELPLESS AND WORRIED ABOUT PAIN CONTROL. REASSURED PT AND UPDATED WIRE WINDING MACHINE TENDER RN, WILL CONT TO MONITOR
[2021-04-12 19:22] VITALS: BP 104/58
--- NOTE | 2021-04-13 06:09 | NUR ---
ASSUMED CARE OF PT AT SHIFT CHANGE. PT IS AOX4 BUT CAN BE FORGETFUL. FALL PRECAUTION IN PLACE. EXTERNAL FEMALE CATH IN PLACE. PT REPORTED SOME ABD PAIN; PRN PAIN MEDS PROVIDED. AVAIABLE PAIN MEDS ARE UNABE TO KEEP PT COMFORTABLE; OT EXTRA DOSE ORDERED AND ADMINISTERED. PT WAS NPO THIS SHIFT. PT DENIED NAUSEA OR SOA. ASSESSMENT CHARTED. PT WAS ABLE TO GET COMFORTABLE AND SLEEP PART OF THE SHIFT. VSS AND NO S/S OF ACUTE DISTRESS. WILL CONTINUE TO MONITOR.
--- NOTE | 2021-04-13 06:49 | EKG ---
[address] [place] [address] ELECTROCARDIOGRAM REPORT Name: ROBERTO ORELLANA Room #: 455- ADM IN M.R.#: [id number] Admission: 04/11/21 Attend Phys: Sandy Henderson Discharge: Date of : 49 Report #: [id number] [facility] Test Date: 2021-04-12 Test Time: 15:02:00 Pat Name: ROBERTO ORELLANA Department: Room: [facility] 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: : 1945 Requested By: Sandy Henderson Order Number: [id number] MD: Uday Cota Measurements Intervals [place] Rate: 164 P: [place]: QRS: 177 QRSD: 91 T: 5 QT: 304 QTc: 502 Interpretive Statements Atrial fibrillation with rapid V-rate Low voltage, precordial leads Consider right ventricular hypertrophy Probable anteroseptal infarct, old Compared to ECG 04/11/2021 13:16:08 Low QRS voltage now present Myocardial infarct finding now present Electronically Signed On 04-13-2021 6:49:19 CDT by Uday Cota [email or web address] <ELECTRONICALLY SIGNED> By: Uday Cota MD, FACC 04/13/21 0649 1502 1502 Uday Cota MD, [facility] /EPI
--- NOTE | 2021-04-13 06:49 | EKG ---
[place] [address] [address] [facility] [place] [address] ELECTROCARDIOGRAM REPORT Name: KIMANI ORELLANACHARLESRENATO BRIANNA Room #: 455- ADM IN M.R.#: [id number] Admission: 04/11/21 Attend Phys: Sandy Henderson Discharge: Date of : 49 Report #: [id number] [facility] Test Date: 2021-04-12 Test Time: 15:06:13 Pat Name: ROBERTO ORELLANA Department: Room: [facility] Gender: F Neurological Surgeon: : 1945 Requested By: Sandy Henderson Order Number: [id number] MD: Uday Cota Measurements Intervals [place] Rate: 99 P: [place]: QRS: 178 QRSD: 102 T: 31 QT: 392 QTc: 504 Interpretive Statements Atrial fibrillation Low voltage, precordial leads Probable right ventricular hypertrophy Prolonged QT interval Compared to ECG 04/12/2021 15:02:00 Prolonged QT interval now present Electronically Signed On 04-13-2021 6:49:34 CDT by Uday Cota [email or web address] <ELECTRONICALLY SIGNED> By: Uday Cota MD, [facility] 04/13/21 0649 05 150 Uday Cota MD, [facility] /EPI
[2021-04-13 06:53] LABS: HEMATOCRIT 38.9 % (37.0-47.0); HEMOGLOBIN 12.6 gm/dL (12.0-15.0); MCH 29.1 pg (26.0-34.0); MCHC 32.5 g/dL (28.0-37.0); MCV 89.7 fL (80.0-100.0); RBC 4.34 mil/uL (4.20-5.00); RDW 15.4 % (10.5-14.5); WBC 8.4 thou/uL (4.0-11.0)
[2021-04-13 07:27] LABS: CREATININE 1.7 mg/dL (0.6-1.0); POTASSIUM 4.4 mmol/L (3.5-5.1)
[2021-04-13 07:29] VITALS: BP 95/62
--- NOTE | 2021-04-13 14:59 | NUR ---
PT ADMITTED RELATED TO SBO; UTI; SAPNA. CM REVIEWED CHART AND SPOKE WITH CARE TEAM. CM MET WITH PT AT BEDSIDE THIS DAY. PT APPEARED TO BE A&O X4. CM ROLE INTRODUCED. PT INDICATED SHE RESIDES ALONE IN A HOUSE WITH 2 STEPS TO ENTER AND NO STEPS SHE USES INSIDE. PT INDICATED THAT SHE HAS A 4WW FOR USE AT HOME SHE HAS A WC WELL SHOULD SHE NEEDS IT. PT INDICATED HE HOUSE IS HANDICAP ACCESSABLE WITH WALK IN SHOWERS AND GRABBARS. 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 PT DOES GET ASSISTANCE FROM CAREGIVER FOR BATHING. PT HAS CAREGIVER SERVICES PAID FOR BY THE [place] THROUGH [facility]. 3 HRS MON, 2 HRS , 2 HRS , AND 3 SUNDAY. PT INDICATED SHE DRIVES HERSELF TO APPTS. PT'S DTR LIVES NEXT DOOR. PT HAS A LIFE ALERT AND A PRACHI IN THE HOME. PT STATED THAT SHOULD SHE NEED HH SERVICES UPON DC SHE WOULD LIKE TO USE [facility]. PT HAD SURGERY FOR SBO YESTERDAY. CM FOLLOWING REGARDING DC PLANNING.
[2021-04-13 15:44] VITALS: BP 102/71
--- NOTE | 2021-04-13 16:52 | NUR ---
Pt A & O x4 with confusion at times noted. Pt VS stable. pt received PRN pain medications as requested by pt and also received medications as ordered. Pt passed gas once this shift. Pt is room air. Pt is able to make needs known
[2021-04-13 19:51] VITALS: BP 133/70
--- NOTE | 2021-04-14 05:42 | NUR ---
Pt. rested quietly at intervals during the night when checked on during frequent rounds. She c/o abdominal pain and pain meds given (see emar) with some relief noted. Pt. did have a moderate amount of yellowish colored emesis and prn zofran given (see emar) with some relief. Dressing to her abdomen is intact.
[2021-04-14 07:15] VITALS: BP 120/49
[2021-04-14] MEDS ORDERED: DULCOLAX STOOL100 M1 PO (09:32)
--- NOTE | 2021-04-14 11:39 | NUR ---
Nutrition: Triggered for high BMI. Noted pt with hx gastric sleeve, 2017. She has lost 87 lb (30%) in the last 4 years. 20 lb loss x last 2 years. Currently NPO for SBO 2' hernia. S/p laperotomy for lysis of adhesions causing the SBO. Pt asleep at time of visit. Will follow up for any education needs. Low nutrition risk.
[2021-04-14 12:49] LABS: HEMATOCRIT 39.7 % (37.0-47.0); HEMOGLOBIN 12.8 gm/dL (12.0-15.0); MCHC 32.4 g/dL (28.0-37.0); MCV 89.6 fL (80.0-100.0); RBC 4.42 mil/uL (4.20-5.00); RDW 15.6 % (10.5-14.5); WBC 9.5 thou/uL (4.0-11.0)
[2021-04-14 13:00] LABS: CALCIUM 8.1 mg/dL (8.5-10.1); CREATININE 1.3 mg/dL (0.6-1.0)
[2021-04-14 15:25] VITALS: BP 115/84
--- NOTE | 2021-04-14 15:42 | NUR ---
NEW POST OP THERAPY ORDERS PUT IN THIS AM. PT INDICATED THAT SHE WAS TOO NAUSEAOUS TO PARTICIPATE THIS DAY. CM FAXED REFERRAL TO [facility] PT GETS PD SERVICES THROUGH THEM AND WANTED HH THROUGHT THEM UPON DC. CM FOLLOWING REGARDING DC PLANNING.
--- NOTE | 2021-04-14 19:47 | NUR ---
Assumed pt care this am, pain is managed with medications. Pt refused to work [facility] physical therapy and OT. Maintained NPO w/ small sips pf water with medications. Nausea and vomiting noted, partial relief is noted with meds. Dressing c/d/i, POC followed. Endorsed to the night nurse.
[2021-04-14 20:01] VITALS: BP 138/74
--- NOTE | 2021-04-15 04:17 | NUR ---
Pt A/OX4,VSS.C/o nausea/abd pain, medicated per EMAR with relief reported and pt been resting quietly at night. Purewick in place with yellow urine. Dsg on midline incision in place,yany intact,lap istes C/D/I.Fall precautions in place. Continues to be NPO with sips of water. Will continue to monitor pt.
[2021-04-15 06:35] LABS: HEMATOCRIT 37.3 % (37.0-47.0); HEMOGLOBIN 12.4 gm/dL (12.0-15.0); MCH 29.7 pg (26.0-34.0); MCHC 33.2 g/dL (28.0-37.0); MCV 89.5 fL (80.0-100.0); RBC 4.17 mil/uL (4.20-5.00); RDW 15.4 % (10.5-14.5)
[2021-04-15 06:49] LABS: CALCIUM 8.3 mg/dL (8.5-10.1); CREATININE 1.2 mg/dL (0.6-1.0)
[2021-04-15 07:48] VITALS: BP 150/85
--- NOTE | 2021-04-15 15:51 | NUR ---
PT WORKED WITH PT FOR THE FIRST TIME THIS DAY. PT LIMITED BY PAIN AND N/V. PT INDICATED SHE IS HOPING TO DC HOME WITH HOME HEALTH THE BEGINING OF NEXT WEEK. SHOULD PT BE DC READY THIS WEEKEND. FAX ORDERS TO [facility] CALL . CM FOLLOWING REGARDING DC PLANNING.
[2021-04-15 16:58] VITALS: BP 115/71
[2021-04-15 19:36] VITALS: BP 131/80
--- NOTE | 2021-04-15 19:56 | NUR ---
Assumed pt care this am, vomited grass green liquid 2x, MD informed. Pain is managed with medications partial relief is noted. N/V relief achieved after compazine was given. MaintainedNPO with small sips of water. Dressing c//d/i, abd binder in place. POC followed, endorsed to the night nurse.
--- NOTE | 2021-04-16 04:18 | NUR ---
Pt. rested quietly at intervals during the night when checked on during frequent rounds. She has been given jpain meds (see emar) for c/o abdominal pain with some relief noted. Zofran given for c/o nausea with relief. Bed alarm is on. Not passed any flatus this shift.
[2021-04-16 05:41] LABS: HEMATOCRIT 36.7 % (37.0-47.0); MCH 29.6 pg (26.0-34.0); MCHC 32.8 g/dL (28.0-37.0); MCV 90.3 fL (80.0-100.0); RBC 4.06 mil/uL (4.20-5.00); RDW 15.4 % (10.5-14.5); WBC 7.5 thou/uL (4.0-11.0)
[2021-04-16 05:47] LABS: CALCIUM 8.2 mg/dL (8.5-10.1); CREATININE 1.1 mg/dL (0.6-1.0); POTASSIUM 3.6 mmol/L (3.5-5.1)
[2021-04-16 07:46] VITALS: BP 132/67
--- NOTE | 2021-04-16 14:20 | NUR ---
OT LICO ATTEMPTED. PT URINATED SEVERAL TIMES AND NEEDED FULL BED CHANGE AND CLEANING OF HERSELF. PT CALLED RN FOR ASSISTANCE AND ASKED OT TO RETURN Sunday. THIS OTL WILL RETURN SUNDAY AM
[2021-04-16 16:30] VITALS: BP 118/74
[2021-04-16 18:04] LABS: URINE BILIRUBIN NEGATIVE (Negative); URINE BLOOD 2+ (Negative); URINE CLARITY CLEAR; URINE COLOR YELLOW; URINE GLUCOSE-RANDOM* NEGATIVE (Negative); URINE KETONES NEGATIVE (Negative); URINE NITRITE-REFLEX NEGATIVE (Negative); URINE PROTEIN (DIPSTICK) NEGATIVE (Negative); URINE UROBILINOGEN 0.2 E.U./dl (0.2-1.0)
[2021-04-16 18:06] LABS: URINE LEUKOCYTES-REFLEX 3+ (Negative)
[2021-04-16 18:13] LABS: SQUAMOUS 4-10 Moderate /LPF (0-3); URINE RBC 3-10 Few /HPF (NONE SEEN); URINE WBC-REFLEX >25 Many /HPF (0-5); WBC CLUMPS Few (None Seen)
[2021-04-16 19:52] VITALS: BP 104/66
--- NOTE | 2021-04-16 20:25 | NUR ---
Assumed pt care this am, midline incision c/d/i dressing. REfused to use abd binder. Nauseas and pain is managed with medications, partial relief is noted. Active bowel sounds still no bm, suppository given and PPN started. Maintained NPO, POC followed, endorsed to the night nurse.
[2021-04-17 04:02] LABS: ALBUMIN 1.8 g/dL (3.4-5.0); CALCIUM 8.5 mg/dL (8.5-10.1); MAGNESIUM 1.9 mg/dL (1.8-2.4); POTASSIUM 3.9 mmol/L (3.5-5.1); TOTAL BILIRUBIN 0.7 mg/dL (0.2-1.0); TOTAL PROTEIN 5.9 g/dL (6.4-8.2)
[2021-04-17 04:44] LABS: ABSOLUTE NEUTROPHILS 5.2 thou/uL (1.4-8.2); BASOPHILS 0.3 % (0.0-2.0); EOSINOPHILS 2.5 % (0.0-3.0); HEMOGLOBIN 12.6 gm/dL (12.0-15.0); LYMPHOCYTES 13.4 % (24.0-44.0); MCH 29.7 pg (26.0-34.0); MCHC 33.2 g/dL (28.0-37.0); MCV 89.6 fL (80.0-100.0); MONOCYTES 12.3 % (1.0-8.0); PLATELET COUNT 251 thou/uL (150-400); POLYS 71.5 % (36.0-66.0); RBC 4.24 mil/uL (4.20-5.00); RDW 15.3 % (10.5-14.5); WBC 7.3 thou/uL (4.0-11.0)
--- NOTE | 2021-04-17 06:00 | NUR ---
Pt. has rested very little during the night when checked on during frequent rounds. She c/o constant pain and nausea. Shila VIANNEY called with new order for one time additional fentanyl as pt. crying out with abdominal pain. (see emar). Fentanyl provides some relief of pain. Pt. is also upset that the oxy was dc'd. Antinausea meds given also (see emar) with some relief. Pt. spitting up green colored emesis. Bed alarm is on.
[2021-04-17 07:00] VITALS: BP 146/81
--- NOTE | 2021-04-17 12:14 | NUR ---
PATIENT IS A&OX4, ABLE TO MAKE NEEDS KNOWN. PATIENT REPORTING ABDOMINAL PAIN THAT DECREASES WITH PAIN MEDICATION GIVEN. PATIENT'S INCISION IS INTACT WITH BERNY. NG TUBE PLACED ORDERED AND CHEST XRAY CONFIRMS PLACEMENT. NG TUBE TO LOW INTERMITTENT SUCTION IN THE LEFT NARES, AT 46. PATIENT REMAINS ON ROOM AIR. IV REMAINS PATENT, FLUIDS INFUSING. FALL PRECAUTIONS ARE IN PLACE, CALL LIGHT WITHIN REACH.
[2021-04-17 17:06] VITALS: BP 149/64
[2021-04-17 19:26] VITALS: BP 113/65
--- NOTE | 2021-04-18 06:02 | NUR ---
PATIENT AOX4 MAKES NEEDS KNOWN. PATIENT HAS NG ON LEFT NARE, 200ML OUTPUT THIS SHIFT. PATIENT ABD BERNY ARE INTACT, REDNESS NOTED, NO DRAINAGE OR S/S OF INFECTION NOTED. PATIENT IS ON PPN. PAIN AND NAUSEA CONTROLLED THIS SHIFT. PATIENT INCONTINENT THIS SHIFT PERICARE AND BARRIER CREAM APPLIED.FALL PRECAUTION IN PLACE. PATIENT IN BED ASLEEP AT THIS TIME BREATHING REGULAR AND UNLABOURED.
[2021-04-18 06:03] LABS: CALCIUM 8.2 mg/dL (8.5-10.1); MAGNESIUM 1.9 mg/dL (1.8-2.4); PHOSPHORUS 2.7 mg/dL (2.5-4.9); POTASSIUM 3.8 mmol/L (3.5-5.1)
[2021-04-18 07:40] VITALS: BP 138/53
--- NOTE | 2021-04-18 08:58 | NUR ---
Change nutrition status to moderate risk
--- NOTE | 2021-04-18 10:00 | NUR ---
Discussed during los with the hospitalist, no anticipated dc today. Still requiring NG to LIS for ileus. [facility] if needed for dc needs. Will cont following as needed.
--- NOTE | 2021-04-18 14:24 | NUR ---
ASSUMED PT CARE THIS AM. PT A&OX4 AND ABLE TO MAKE NEEDS KNOWN. PATIENT REPORTING ABDOMINAL PAIN THAT DECREASES WITH PAIN MEDICATION GIVEN PER EMAR. PATIENT REPORTING NAUSEA WELL THAT DECREASES. INCISION TO LEFT SIDE OF ABDOMEN IS INTACT WITH NO DRAINAGE NOTED. PATIENT IS ON ROOM AIR. IV REMAINS PATENT TO RIGHT FOREARM, FLUIDS INFUSING. FALL PRECAUTIONS ARE IN PLACE, CALL LIGHT WITHIN REACH. NG TUBE TO LEFT NARE AT 46 CONNECTED TO LOW INTERMITTENT SUCTION.
[2021-04-18 19:44] VITALS: BP 114/75
[2021-04-19 06:39] LABS: CALCIUM 8.1 mg/dL (8.5-10.1); CREATININE 0.9 mg/dL (0.6-1.0); PHOSPHORUS 3.4 mg/dL (2.5-4.9); POTASSIUM 4.5 mmol/L (3.5-5.1)
--- NOTE | 2021-04-19 07:22 | NUR ---
pain and nausea controlled this shift. patient yany in the mid abd is intact, no s/s of infection. . fall pecaution in place. patient in bed asleep at this time breathing regular and unlaboured.
[2021-04-19 07:33] VITALS: BP 142/92
--- NOTE | 2021-04-19 10:58 | NUR ---
ASSUMED PT CARE THIS AM. PT A&OX4, ABLE TO MAKE NEEDS KNOWN. PATIENT REPORTS ABDOMINAL PAIN, MEDICATED PER EMAR. IV REMAINS PATENT, FLUIDS INFUSING. NG TUBE TO LEFT NARE, TO LOW INTERMITTENT SUCTION. BERNY TO ABDOMEN ARE INTACT. PATIENT REMAINS ON ROOM AIR. PATIENT REMAINS NPO. FALL PRECAUTIONS ARE IN PLACE, CALL LIGHT WITHIN REACH.
--- NOTE | 2021-04-19 15:18 | NUR ---
Care team indicated that pt with post op ileus as obstruction resolves. Cont. expectant management of ileus/obstruction. NGT to LIS. +DVT chemoprophylaxis. Therapy indicating that pt would benefit from home health upon dc. Cm had sent referral to [facility] home [facility] last week. They can accept. Cm following regarding dc planning.
[2021-04-19 20:15] VITALS: BP 116/48
--- NOTE | 2021-04-20 04:43 | NUR ---
Pt is A/OX4,VSS. C/o abd/mouth pain medicated per EMAR with relief reported.C/o nausea spitting clear phlegm on a tissue,medicated with relief reported. Pt remaind to be NPO with no problems. NG tube in place left nare on LIS with green small drainage noted. Midline incision,C/D/I well approximated with yany in place. Fall precautions in place,calls approp for help.Will continue to monitor pt.
[2021-04-20 06:43] LABS: CALCIUM 8.4 mg/dL (8.5-10.1); CREATININE 0.9 mg/dL (0.6-1.0); PHOSPHORUS 3.1 mg/dL (2.5-4.9); POTASSIUM 4.1 mmol/L (3.5-5.1)
[2021-04-20 07:44] VITALS: BP 128/79
--- NOTE | 2021-04-20 14:59 | NUR ---
Assumed pt care at 7am.Pt in bed very miserable and frustrated. Emotional support given.Assessment completed.pt c/o abdominal pain. Fentanyl ivp given. Dr Fowler and Malachi here,order noted. Pt went for ct abd later this afternoon. Pt has loose moderate bm and pericare given. Dtr here to visit, updates given. Ng to lis post ct abd. Pt in bed sleeping. Fall precaution in place.Will continue to monitor.
[2021-04-20 15:09] VITALS: BP 143/90
[2021-04-20 19:03] LABS: HEMATOCRIT 43.1 % (37.0-47.0); MCH 29.1 pg (26.0-34.0); MCHC 32.5 g/dL (28.0-37.0); MCV 89.4 fL (80.0-100.0); RBC 4.82 mil/uL (4.20-5.00); RDW 15.5 % (10.5-14.5); WBC 12.7 thou/uL (4.0-11.0)
[2021-04-20 23:15] VITALS: BP 112/57
[2021-04-21] VITALS (7 sets, daily range): BP systolic 103–139; BP diastolic 55–80
--- NOTE | 2021-04-21 01:12 | NUR ---
Pt returned from surgery at 2315 via bed accompanied by 2 RN's. A/OX3,VSS C/o pain,nausea on arrival medicated per EMAR with relief reported. Pt has an ileostomy on her RLQ no output or bleeding noted,guzman in place patent to DD with yellow urine. Midline incision covered in abd C/D/I sp exp lap small bowel/resection. Central line in place on right jugular PPN infusing w/ problems. NG in left nare connected to LIS with some green output noted. Resting quietly at this time w/o any distress noted,will continue to monitor pt.
[2021-04-21 06:34] LABS: HEMATOCRIT 36.2 % (37.0-47.0); MCH 29.2 pg (26.0-34.0); MCHC 32.3 g/dL (28.0-37.0); MCV 90.3 fL (80.0-100.0); RDW 15.4 % (10.5-14.5); WBC 13.9 thou/uL (4.0-11.0)
[2021-04-21 06:40] LABS: CALCIUM 8.2 mg/dL (8.5-10.1); CREATININE 1.2 mg/dL (0.6-1.0); POTASSIUM 4.4 mmol/L (3.5-5.1)
[2021-04-21 06:42] LABS: HEMOGLOBIN 11.7 gm/dL (12.0-15.0)
--- NOTE | 2021-04-21 12:25 | NUR ---
Assumed pt care at 7am. Pt in bed sleeping on and off. Repositioned q2h in bed for comfort. Assessment completed. vss. Pt reported feeling better today but wanted pain shot scheduled. Dr Fowler here,order noted.Pt get clarification on pain and nausea med.Both meds given as ordered. Moderate output noted per ng. Will continue to monitor.
--- NOTE | 2021-04-21 16:56 | NUR ---
GI CONSULTED. CM SENT ONLINE ENROLLMENT INFO FOR THE OSTOMY PROGRAM FOR IT'S NEW ILEOSTOMY. CM FOLLOWING REGARDING DC PLANNING.
--- NOTE | 2021-04-22 03:38 | NUR ---
Pt A/OX3 with some forgetfulness noted. VSS. C/o pain, nausea and spitting up some brownish/yellow phelgm. NG tube in place on left nare with green output noted connected to LIS. Midline abd incision C/D/I with ABD on. Medicated for pain,nausea and anxiety with some relief reported. Central line patent on RIJ with PPN infusing. [place] to DD with yellow urine,ileostomy with dark brownish liquid noted. Resting quietly at this time w/o any distress noted,will continue to monitor pt.
[2021-04-22 08:14] VITALS: BP 128/90
--- NOTE | 2021-04-22 14:48 | NUR ---
CARE TEAM INDICATED THAT PT IS PROGRESSING SLOWLY. THEY INDICATED THAT PT WILL BE HERE OVER THE WEEKEND AND LIKELY THROUGH MIDDLE OF NEXT WEEK. CM FOLLOWING REGARDING DC PLANNING.
--- NOTE | 2021-04-22 16:35 | NUR ---
TODAY THIS PT HAS BEEN IN HER ROOM WITH SOME STATED PAIN WELL NAUSEA AND HAS BEEN MEDICATED. SHE HAS BEEN ON AND OFF SLEEP. SHE IS TOLERATING HER IV FLUIDS WELL AND HAS REFUSED TURNING IN THE BED. SHE HAS OTHERWISE BEEN AWAITING FOR THE NEXT PLAN.
[2021-04-22 16:45] VITALS: BP 125/54
[2021-04-22 20:47] VITALS: BP 131/67
--- NOTE | 2021-04-23 05:23 | NUR ---
PT CARE ASSUMED WITH PT IN BED SLEEPING.PT IS A/O X4.PT IS ON BED REST.PT HAS AN NG TUBE VIA LEFT NARES AND ILEOSTOMY.PT HAS A CHAVARRIA IN PLACE.PT C/O PAIN AND MANAGED WITH FENTAYL AND TORADOL WITH PARTIAL RELIEF.PT IS ON ROOM AIR.IV ACCESS RT IJ TRIPPLE LUMEN.WILL CONTINUE TO MONITOR PER POC
[2021-04-23 06:35] LABS: HEMATOCRIT 29.6 % (37.0-47.0); MCH 29.4 pg (26.0-34.0); MCHC 32.8 g/dL (28.0-37.0); MCV 89.7 fL (80.0-100.0); RBC 3.3 mil/uL (4.20-5.00); RDW 15.2 % (10.5-14.5); WBC 7.7 thou/uL (4.0-11.0)
[2021-04-23 06:42] LABS: ALBUMIN 1.7 g/dL (3.4-5.0); CREATININE 0.9 mg/dL (0.6-1.0); MAGNESIUM 2.3 mg/dL (1.8-2.4); POTASSIUM 4.3 mmol/L (3.5-5.1); TOTAL BILIRUBIN 0.5 mg/dL (0.2-1.0); TOTAL PROTEIN 4.9 g/dL (6.4-8.2)
[2021-04-23 07:24] VITALS: BP 125/61
[2021-04-23 07:27] LABS: HEMOGLOBIN 9.7 gm/dL (12.0-15.0)
[2021-04-23 15:53] VITALS: BP 126/69
--- NOTE | 2021-04-23 16:01 | NUR ---
TODAY THIS PT HAS BEEN IN HER ROOM TOLERATING HER FLUIDS WELL MEDS WELL. SHE HAS HAD SOME PAIN IN WHICH SHE WAS MEDICATED. SHE HAS BEEN GETTING TURNED Q2 HOURS AND HAS TOOK A NAP TODAY. SHE HAS GOTTEN HER DRESSING CHANGED DUE TO IT BEING DIRTY AND BY PATIENT REQUEST. SHE OTHERWISE AWIAITS FOR THE NEXT PLAN.
[2021-04-23 20:25] VITALS: BP 131/78
--- NOTE | 2021-04-24 06:00 | NUR ---
Pt. rested quietly at intervals during the night when checked on during frequent rounds. She has been very tearful and anxious and prn ativan given with little relief (see emar). Pt. has been observed pulling on her nasogastric tube and rubbing her neck where jugular iv is. Pt. has been told several times to not do this. She has been yelling out for help and not using her call light. Pt. bed alarm sounded and she was attempting to get up out of the bed. Pt. moved to room 452 for closer observation. She has been medicated for c/o pain and nausea (see emar).
--- NOTE | 2021-04-24 14:19 | NUR ---
ASSUMED PT CARE THIS AM. PT A&OX4, ABLE TO MAKE NEEDS KNOWN. PATIENT REPORTING ABDOMINAL PAIN THAT DECREASES WITH PAIN MEDICATION GIVEN. PATIENT MEDICATED FOR NAUSEA AND PAIN IN HER THROAT DUE TO NG TUBE. NG TUBE TO LEFT NARE, LOW INTERMITTENT SUCTION DRAINING GREEN DRAINAGE. BERNY TO LEFT SIDE OF ABDOMINAL WITH DRESSING OVER, REMAINS C/D/I. PATIENT HAS AN OSTOMY BAG DRAINING BROWN STOOL. CHAVARRIA REMAINS IN PLACE, DRAINING WITHOUT ISSUE. PATIENT REMAINS ON ROOM AIR. FALL PRECAUTIONS ARE IN PLACE, CALL LIGHT WITHIN REACH. PATIENT REPORTING THAT SHE JUST WANTS TO BE COMFORTABLE AND WANTS TO TALK TO THE PHYSICIAN ABOUT HOSPICE OR PALLIATIVE CARE. HOSPITALIST INFORMED OF THIS.
[2021-04-24 15:31] VITALS: BP 141/68
[2021-04-24 20:09] VITALS: BP 139/81
[2021-04-25 01:52] VITALS: BP 145/91
--- NOTE | 2021-04-25 04:40 | NUR ---
ASSUMED CARE AT 1900, PT CONTINUES TO BE ON PAIN MANAGEMENT, SLEPT INTERMITTENTLY, COMPLIANT TO TX, NO ADVERSE REACTION NOTED. WILL CONTINUE TO MONITOR.
[2021-04-25 07:00] LABS: HEMATOCRIT 32.2 % (37.0-47.0); HEMOGLOBIN 10.6 gm/dL (12.0-15.0); MCH 29.2 pg (26.0-34.0); MCHC 32.8 g/dL (28.0-37.0); MCV 89.2 fL (80.0-100.0); RBC 3.61 mil/uL (4.20-5.00); RDW 15.3 % (10.5-14.5); WBC 8.7 thou/uL (4.0-11.0)
[2021-04-25 07:12] LABS: ALBUMIN 1.9 g/dL (3.4-5.0); CALCIUM 8.1 mg/dL (8.5-10.1); CREATININE 0.8 mg/dL (0.6-1.0); MAGNESIUM 2.2 mg/dL (1.8-2.4); POTASSIUM 4.7 mmol/L (3.5-5.1); TOTAL BILIRUBIN 0.8 mg/dL (0.2-1.0); TOTAL PROTEIN 5.4 g/dL (6.4-8.2)
--- NOTE | 2021-04-25 09:51 | NUR ---
Pt has been npo total of 14 days and on minimal PPN 9 of 14 days. Consider transition to TPN standard 65ml/hr 15%dex, 5%AA and 2.9% lipids
--- NOTE | 2021-04-25 15:09 | NUR ---
PT PULLED NG TUBE OUT THIS DAY AND WAS STARTED ON CLEAR LIQUID DIET. CARE TEAM INDICATING THAT PT WILL LIKELY NEED SKILLED POST ACUTE CARE STAY UPON DC. CM TO PROVIE PT AND FAMILY WITH [facility] SN[facility] LIST TO [facility] REVIEWING FOR CM TO SEND REFERRALS. CM FOLLOWING REGARDING DC PLANNING.
[2021-04-25 22:30] VITALS: BP 146/82
[2021-04-26 04:45] VITALS: BP 129/68
--- NOTE | 2021-04-26 05:46 | NUR ---
ASSUMED CARE OF PT AT 1900. PT IS ALERT AND ORIENTED, BUT EXTREMELY DROWSY. PT RESTED IN BED THROUGHOUT THE NIGHT WITH NO COMPLAINTS, VSS. PAIN CONTROLLED WITH IV PAIN AND ANXIETY MEDICATION. PRIOR TO BED PT CLEANED UP AND STRAIGHTENED OUT IN BED, HAS LOTS OF PAIN AFTER ACTIVITY. OSTOMY AND CHAVARRIA HAD GOOD OUTPUT THROUGHOUT THE NIGHT. FLUIDS AND PPN RUN INTO X3 R IJ. NAUSEA CONTROLLED WITH ONDANSETRON SCHEDULED. PROPPED UP WITH PILLOWS BILAT SIDES AND ELEVATED HEELS. PT RESTING IN ROOM NOW, WILL UPDATE DAY SHIFT RN.
[2021-04-26 07:27] VITALS: BP 114/53
--- NOTE | 2021-04-26 10:07 | PATH ---
[facility] [address] [place] [address] PATHOLOGY RPT PROCEDURE Name: LUZ THOMAS Room #: 452-P ADM IN M.R.#: [id number] Admission: 04/11/21 Date of : 49 Discharge: Report #: [id number] Path Case #: [id number] [facility] Accession Number: [id number] . 01 Material submitted: . colon - TERMINAL ILEUM . 01 Clinical history: . EXPLORATORY LAPAROTOMY SMALL BOWEL RESECTION ILEOSTOMY . 02 Diagnosis: Small bowel, terminal ileum, resection: - Marked acute serositis as well as congestion extending throughout the specimen/bowel wall. 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 - Overlying mucosa showing reactive changes. - Margins of resection viable and unremarkable. (IUV:chele; 04/22/2021) QMS 04/22/2021 1538 Local . 02 Comment: Multiple sections are examined and show extensive fat necrosis, marked serositis as well as congestion extending from one end of the bowel wall to the other. The margins show unremarkable mucosa. A 0.3 cm spindle cell proliferation noted as white-pike nodule grossly is identified and multiple properly controlled immunohistochemical stains are performed on block A3. The lesion shows reactivity with SMA, and is nonreactive to CD117 as well as CD34. The stains are consistent with a leiomyoma. There is no evidence of nuclear atypia, nuclear pleomorphism, necrosis or increased mitotic activity identified within this lesion consistent with the lack of malignancy. (IUV:chele; 04/22/2021) . 02 Electronically signed: . Tiffany Manzanares MD, Pathologist NPI- [id number] . 01 Gross description: . The specimen is received in formalin, labeled "Luz Thomas, terminal ileum". Received is an unoriented serpiginous segment of small bowel measuring 17.8 cm in length and ranges in diameter from 2.5-3.7 cm. Both margins are stapled closed. The serosal surface is dusky pink-castillo and smooth to ragged in appearance. The attached mesenteric fat measures up to 4.8 cm in thickness. The specimen is opened along the antimesenteric [facility] [address] [place] [address] PATHOLOGY RPT PROCEDURE Name: LUZ THOMAS Room #: 452-P ADM IN M.R.#: [id number] Admission: 04/11/21 Date of : 49 Discharge: Report #: [id number] Path Case #: [id number] line to reveal light pike to pink-pike mucosa with normal architectural folds. No distinct nodules or lesions are noted grossly. Sectioning reveals a white-pike nodule within the serosal wall measuring 0.3 cm, which is located at the mid aspect of the specimen. Sectioning through the attached mesenteric fat reveals bright yellow cut surfaces with a moderate amount of fat necrosis identified. Lymph nodes are not grossly identified. The specimen is submitted representatively as follows: . A1-A2 both margins A3-A4 entire serosal wall nodule, bisected A5-A6 medical detail representative cross-sections of mucosa. (CAA; 04/21/2021) QAC/QAC 04/21/2021 1601 Local . 02 Pathologist provided ICD-10: K65.8, D21.4 . 02 CPT . 498440, F25346, Q27370 Specimen Comment: A courtesy copy of this report has been sent to [phone], [phone] Specimen Comment: [id number] Specimen Comment: Report sent to , DR ANDRES / DR RDZ Specimen Comment: A duplicate report has been generated due to demographic updates. Performed at: [facility] [address] [place] [address] [address], [place], [place] [id number] MD Manjit Root MD Phone: [phone] Performed at: [address] [id number] MD Tiffany Manzanares MD Phone: [phone]
[2021-04-26 12:05] LABS: URINE BILIRUBIN NEGATIVE (Negative); URINE BLOOD NEGATIVE (Negative); URINE CLARITY CLEAR; URINE COLOR YELLOW; URINE GLUCOSE-RANDOM* NEGATIVE (Negative); URINE KETONES NEGATIVE (Negative); URINE NITRITE-REFLEX NEGATIVE (Negative); URINE PROTEIN (DIPSTICK) NEGATIVE (Negative); URINE SPECIFIC GRAVITY 1.025 (1.005-1.035)
[2021-04-26 12:18] LABS: URINE LEUKOCYTES-REFLEX 1+ (Negative)
[2021-04-26 12:33] LABS: CASTS None Seen /LPF (None Seen); SQUAMOUS 0-3 Few /LPF (0-3); URINE RBC 1-2 Rare /HPF (NONE SEEN); URINE WBC-REFLEX 6-15 Few /HPF (0-5)
[2021-04-26 12:34] LABS: BACTERIA-REFLEX 1-9 Few /HPF (None Seen); CRYSTALS None Seen /LPF (None Seen); YEAST-REFLEX Present (None Seen)
--- NOTE | 2021-04-26 15:17 | NUR ---
CM CALLED AND SPOKE WITH PT'S DTR JOSE LUIS THIS AFTERNOON. SHE IS UNDERSTANDING OF SKILLED RECOMMENDATION. CM EMAILED HER [facility] SNF LIST FOR REVIEW. CM FOLLOWING REGARDING DC PLANNING.
[2021-04-26 15:50] VITALS: BP 141/53
[2021-04-26 19:20] VITALS: BP 147/64
[2021-04-27 04:00] VITALS: BP 98/52
--- NOTE | 2021-04-27 06:01 | NUR ---
ASSUMED CARE OF PT AT 1900. PT IS ALERT AND ORIENTED, BUT ANXIOUS. PT RESTED WELL THROUGHOUT MOST OF THE NIGHT AFTER PAIN AND ANXIETY WAS TREATED WITH PRN MEDICATION. ALL LINES AND DRAINS STILL INTACT. PT WAS CLEANED UP AND TURNED MULTIPLE TIMES. HAS A LOT OF ANXIETY RELATING TO HER QUALITY OF LIFE MOVING FORWARD. WILL PASS ON TO DAY SHIFT RN.
[2021-04-27 09:03] VITALS: BP 132/83
[2021-04-27 12:33] LABS: HEMATOCRIT 28.9 % (37.0-47.0); HEMOGLOBIN 9.2 gm/dL (12.0-15.0); MCH 28.8 pg (26.0-34.0); MCHC 31.9 g/dL (28.0-37.0); MCV 90.2 fL (80.0-100.0); RBC 3.2 mil/uL (4.20-5.00); RDW 15.1 % (10.5-14.5); WBC 14.1 thou/uL (4.0-11.0)
[2021-04-27 12:43] LABS: CALCIUM 7.9 mg/dL (8.5-10.1); CREATININE 0.9 mg/dL (0.6-1.0); POTASSIUM 4.5 mmol/L (3.5-5.1)
--- NOTE | 2021-04-27 13:38 | NUR ---
Assumed pt care at 7am.Assessment completed.vss. Pt c/o abdominal pain but too soon to give pain shot or po med.Complete bed bath and bed change done by director of recruiting. Dr Urbina and Janeth here,order noted.Pt tolerated full liq diet. Ileostomy bag busted this afternoon. Cs called for ostomy. Will replaced ingrid.Pt dtr here, updates given. Will continue to monitor.
--- NOTE | 2021-04-27 15:23 | NUR ---
CM MET WITH PT AND DTR AT BEDSIDE THIS DAY. THEY ASKED THAT REFERRAL BE SENT TO [facility] FOR REVIEW FOR POSSIBLE ADMISSION. CM FAXED REFERRAL AND CONFIRMED RECIEPT. CM FOLLOWING REGARDING DC PLANNING.
[2021-04-27 20:17] VITALS: BP 104/57
--- NOTE | 2021-04-28 03:39 | NUR ---
ASSUMED PT CARE THIS PM. PT IS ALERT AND ORIENTED X4 BUT CAN BE FORGEFUL. PT HAS ABD INCISON WITH BERNY AND DRSG WHICH ARE D/C/I. PT C/O OF PAIN AND NAUSEA WHICH WAS MANAGED BY PRN AND SCHEDULED MEDS. PT HAS ILEOSTOMY AND CHAVARRIA IN PLACE. MEDS WERE GIVEN PER EMAR ORDERS, PT IS ON RA. FALL PRECAUTIONS IN PLACE. WILL CONTINUE TO MONITOR.
[2021-04-28 07:46] VITALS: BP 145/83
[2021-04-28 10:30] LABS: URINE BILIRUBIN NEGATIVE (Negative); URINE BLOOD TRACE (Negative); URINE COLOR YELLOW; URINE GLUCOSE-RANDOM* NEGATIVE (Negative); URINE KETONES NEGATIVE (Negative); URINE NITRITE-REFLEX NEGATIVE (Negative); URINE PROTEIN (DIPSTICK) NEGATIVE (Negative); URINE SPECIFIC GRAVITY <= 1.005 (1.005-1.035); URINE UROBILINOGEN 0.2 E.U./dl (0.2-1.0)
[2021-04-28 10:31] LABS: URINE CLARITY SL HAZY; URINE LEUKOCYTES-REFLEX 3+ (Negative)
--- NOTE | 2021-04-28 10:40 | NUR ---
ASSUMED PT CARE THIS AM. PT IS ALERT & ORIENTED X4 BUT ANXIOUS AT TIMES. PT HAS R IJ TRIPLE LUMEN RUNNING PPN@75ML/HR AND NS@80ML/HR. PT HAS ILEOSTOMY AND CHANGE THIS AM DUE TO LEAKAGE. PT HAS CHAVARRIA CATH IN PLACE. SENT [facility] THIS AM PER DR MENDOZA. PT IS ON ROOM AIR. GIVEN PAIN AND NAUSEA MEDICATION PER PT REQUEST. PT WILL BE WORKING WITH PHYSICAL THERAPY THIS AM. WILL CONTINUE TO MONITOR PT. FOLLOW POC.
[2021-04-28 11:02] LABS: CASTS None Seen /LPF (None Seen); MUCUS 0-3 Light strn/LPF (None Seen); SQUAMOUS >10 Many /LPF (0-3)
[2021-04-28 11:03] LABS: BACTERIA-REFLEX 1-9 Few /HPF (None Seen); CRYSTALS None Seen /LPF (None Seen); URINE RBC None Seen /HPF (NONE SEEN); URINE WBC-REFLEX 6-15 Few /HPF (0-5); YEAST-REFLEX Present (None Seen)
[2021-04-28 14:57] VITALS: BP 110/63
--- NOTE | 2021-04-28 15:23 | NUR ---
[facility] CAN ACCEPT PT AND CARE TEAM INDICATED SHE MAY BE DC READY OVER THE WEEKEND. WE ASKED THAT THEY SUBMIT FOR INSURANCE AUTH. PT IS AWARE AND TO ADMISSIONS LIAISON VISITED WITH PT THIS AM. CM UPDATED PT'S DTR JOSE LUIS THIS AFTERNOON. CM FOLLOWING REGARDING DC PLANNING.
[2021-04-28 15:45] LABS: ABSOLUTE NEUTROPHILS 7.3 thou/uL (1.4-8.2); BASOPHILS 0.7 % (0.0-2.0); EOSINOPHILS 4.4 % (0.0-3.0); HEMATOCRIT 29.7 % (37.0-47.0); HEMOGLOBIN 9.5 gm/dL (12.0-15.0); LYMPHOCYTES 9.3 % (24.0-44.0); MCHC 32.1 g/dL (28.0-37.0); MCV 90.4 fL (80.0-100.0); MONOCYTES 8.7 % (1.0-8.0); PLATELET COUNT 298 thou/uL (150-400); POLYS 76.9 % (36.0-66.0); RBC 3.28 mil/uL (4.20-5.00); RDW 15.3 % (10.5-14.5); WBC 9.5 thou/uL (4.0-11.0)
[2021-04-28 21:10] VITALS: BP 118/73
--- NOTE | 2021-04-29 04:21 | NUR ---
ASSUMED PT CARE THIS PM. PT IS ALERT AND ORIENTED X4 BUT CAN BE FORGETFUL SOMETIMES. PT HAS ILEOSTOMY AND CHAVARRIA IN PLACE. PT HAS A RIGHT IJ WITH 3LUMENS. PAIN WAS MANAGED BY PRN MEDS. MEDS WERE GIVEN PER EMAR. PT DID NOT VERBALIZED CONCERNS. FALL PRECAUTIONS IN PLACE. WILL CONTINUE TO MONITOR.
[2021-04-29 07:00] VITALS: BP 103/62
[2021-04-29 14:54] LABS: HEMATOCRIT 29.1 % (37.0-47.0); HEMOGLOBIN 9.6 gm/dL (12.0-15.0); MCH 29.5 pg (26.0-34.0); MCHC 33.1 g/dL (28.0-37.0); MCV 89.3 fL (80.0-100.0); RBC 3.26 mil/uL (4.20-5.00); RDW 15.5 % (10.5-14.5); WBC 7.8 thou/uL (4.0-11.0)
[2021-04-29 15:05] LABS: CREATININE 0.9 mg/dL (0.6-1.0); MAGNESIUM 1.9 mg/dL (1.8-2.4); POTASSIUM 4.6 mmol/L (3.5-5.1)
--- NOTE | 2021-04-29 15:38 | NUR ---
CARE TEAM ANTICIPATING THAT PT MAY BE MEDICALLY STABLE TO DC SUNDAY OR SUNDAY. PT TO DC SKILLED TO [facility]. ONCE PT IS DC READY CALL AND NOTIFY TO AT TO FACILITATE DC TRANSPORT. FAX ORDERS TO . CHART COPY WILL NEED TO BE MADE.
[2021-04-29 17:27] VITALS: BP 100/55
--- NOTE | 2021-04-29 17:52 | NUR ---
PT UP TO CHAIR TODAY AND STATED REGULAR DIET. FREQUENT GREEN LIQUID FROM COLOSTOMY. ASSESS PT WITH SURGERY TODAY.
[2021-04-29 19:57] VITALS: BP 97/43
--- NOTE | 2021-04-30 06:32 | NUR ---
ASSUMED CARES AT 1900, PT A & OX4, REPORTS EXHAUSTED FROM SLEEPLESS NIGHTS, REQUESTED FOR SLEEP AID PILL, REPORTS NO PAIN OR DISCOMFORT, SLEPT THROUGH THE NIGHT, COMPLIANT TO TX NO ADVERSE REACTION NOTED WILL CONTINUE TO MONITOR.
[2021-04-30 07:00] VITALS: BP 103/23
[2021-04-30 13:26] LABS: ABSOLUTE NEUTROPHILS 5.2 thou/uL (1.4-8.2); BASOPHILS 0.7 % (0.0-2.0); EOSINOPHILS 4.7 % (0.0-3.0); HEMATOCRIT 29.7 % (37.0-47.0); HEMOGLOBIN 9.7 gm/dL (12.0-15.0); LYMPHOCYTES 12.9 % (24.0-44.0); MCH 29.5 pg (26.0-34.0); MCHC 32.7 g/dL (28.0-37.0); MCV 90.3 fL (80.0-100.0); MONOCYTES 9.4 % (1.0-8.0); PLATELET COUNT 333 thou/uL (150-400); POLYS 72.3 % (36.0-66.0); RBC 3.29 mil/uL (4.20-5.00); RDW 15.2 % (10.5-14.5); WBC 7.2 thou/uL (4.0-11.0)
[2021-04-30 13:45] LABS: ALBUMIN 1.5 g/dL (3.4-5.0); CALCIUM 8.1 mg/dL (8.5-10.1); CREATININE 0.9 mg/dL (0.6-1.0); MAGNESIUM 1.8 mg/dL (1.8-2.4); POTASSIUM 4.3 mmol/L (3.5-5.1); TOTAL BILIRUBIN 0.5 mg/dL (0.2-1.0); TOTAL PROTEIN 5.3 g/dL (6.4-8.2)
[2021-04-30 19:30] VITALS: BP 121/74
[2021-04-30 19:56] VITALS: BP 103/23
--- NOTE | 2021-04-30 20:16 | NUR ---
Assumed care of pt at 0700. Pt a&ox4. When assessing pt's oleostomy site, noted redness and swelling around the site. Provider notified. CT scan ordered. Awaiting phone call from CT scan deparment for pt transport. Report given to tootie HAYES.
[2021-05-01 07:47] VITALS: BP 101/53
--- NOTE | 2021-05-01 09:11 | NUR ---
ASSUMED CARE AT 1900, PT REPORTS NAUSEATED, MEDICATION ADMINISTERED SCHEDULED, RESTING COMFORTABLY, ICED WATER ON BEDSIDE TABLE PAIN ASSESSMENT COMPLETED ADRESSED PER PT REQUEST, SURROUNDING STOMA SITE INFLAMED, WARM AND REDNESS NOTED, CT SCAN COMPLETED TO BE REVIEWED BY THE ASSIGNED DOCTOR AND BE ADDRESSED ACCORDINGLY. PT TEMPERATURE 98.2, SLEEPING MEDICATION ADMINISTERED, SLEPT THROUGH THE NIGHT WILL CONTINUE TO MONITOR.
[2021-05-01 15:32] VITALS: BP 90/40
[2021-05-01 20:26] VITALS: BP 104/43
--- NOTE | 2021-05-02 04:44 | NUR ---
ASSUMED CARE AT 1900, PT REPORTS PAIN, DISCOMFORT AND NAUSEATED, MEDICATIONS ADMINISTERED NO ADVERSE REACTION NOTED, LAYING IN BED, PERSONAL ITEMS WITHIN REACH WILL CONTINUE TO MONITOR.
--- NOTE | 2021-05-02 06:51 | O ---
[facility] [address] [place] [address] OPERATIVE REPORT Name: ROBERTO ORELLANA Room #: 452-P ADM IN M.R.#: [id number] Admission: 04/11/21 Attend Phys: Sandy Henderson Discharge: Date of : 49 Report #: [id number] THIS REPORT FOR: cc: Bryant Sprague MD, Rene P. MD Patterson,Andre Guerrero MD ~ DATE OF SERVICE: 04/12/2021 PREOPERATIVE DIAGNOSIS: Small bowel obstruction. POSTOPERATIVE DIAGNOSIS: Small bowel obstruction. OPERATIONS: 1. Diagnostic laparoscopy. 2. Exploratory laparotomy with lysis of adhesions. SURGEON: Andre yL MD ANESTHESIA: General. ESTIMATED BLOOD LOSS: Minimal. SPECIMENS: None. DESCRIPTION OF PROCEDURE: After informed consent was obtained, the patient was brought to the operating room and placed supine. SCDs were placed and working, preoperative antibiotics were administered, general anesthesia was induced. The abdomen was prepped and draped in usual sterile fashion. A 10 mm incision was made in the midline above the umbilicus. The fascia was incised, and a trocar was placed. Pneumoperitoneum was established. Two left-sided 5 mm trocars were placed under direct vision. I was able to run the small bowel somewhat. However, she had too many adhesions to get a good look at the small bowel. Therefore, the laparoscope was removed. A midline laparotomy incision was made from above the umbilicus to approximately 10 cm below the umbilicus. The fascia was incised. There was a hernia sac that was incised into. Exploration was then undertaken. I identified the small bowel. I ran the small bowel from the cecum to the proximal small bowel that was distal to the jejunojejunostomy. The obstruction was in the distal small bowel at the very distal ileum. It had wrapped itself around itself with some adhesions, therefore causing an obstruction. I was able to mobilize the colon medially. This was all stuck to the hernia sac. Once this had been done, the small bowel was without any kinks or twists or areas of blockage. This was the site of the obstruction. The obstruction having been relieved, I placed the small bowel and colon back into the abdomen. The fascia was closed with a #1 looped PDS in running fashion. In the lower aspect of incision, it was just hernia sac that [address] [address] OPERATIVE REPORT Name: ESTEBANROBERTO BRIANNA Room #: 452-P [facility] IN .R.#: [id number] Admission: 04/11/21 Attend Phys: Sandy Henderson Discharge: Date of : 47 Report #: [id number] was sutured together. There was no way to fix the hernia sac given that that would be unfeasible in this patient due to loss of domain. The skin was then closed with yany. The incision was dressed with a sterile gauze. Sterile dressings were applied. COMPLICATIONS: None. DISPOSITION: The patient was taken to recovery in satisfactory condition. <ELECTRONICALLY SIGNED> By: Andre Ly MD 05/02/21 0651 [id number] Andre Ly MD /nt
--- NOTE | 2021-05-02 06:51 | O ---
[facility] [address] [place] [address] OPERATIVE REPORT Name: ROBERTO ORELLANA Room #: 452-P ADM IN M.R.#: [id number] Admission: 04/11/21 Attend Phys: Sandy Henderson Discharge: Date of : 49 Report #: [id number] THIS REPORT FOR: cc: Bryant Sprague MD, Rene P. MD Patterson, Jonathan D. MD ~ DATE OF SERVICE: 04/20/2021 PREOPERATIVE DIAGNOSIS: Small-bowel obstruction. POSTOPERATIVE DIAGNOSIS: Small-bowel obstruction. OPERATION: Exploratory laparotomy with small bowel resection and end ileostomy. OPERATIVE SURGEON: Andre Ly M.D. DIRECTOR OF ACQUISITIONS: Adrián Hidalgo M.D. ANESTHESIA: General. ESTIMATED BLOOD LOSS: 20 mL SPECIMENS: Terminal ileum. DESCRIPTION OF PROCEDURE: After informed consent was obtained, the patient was brought to the operating room and placed supine. SCDs were placed and working, preoperative antibiotics were administered, general anesthesia was induced. The abdomen was prepped and draped in the usual sterile fashion. A England catheter was placed prior to prepping. I removed the yany from the midline. I then extended the incision approximately 10 cm inferiorly. The previous closure of the fascia was all intact. The PDS suture was cut and the fascia was opened. The small bowel was dilated and adhesed up to abdominal wall. However, these were fairly flimsy adhesions and I was able to take them down with a combination of blunt dissection and Metzenbaum scissors. The small bowel was then run proximally and distally for quite some time taking care to dissect it away from the abdominal wall and from other small bowel. It was fairly dilated throughout. I was able to finally dissect out the cecum. The terminal ileum was matted down and scarred essentially. This was the area of the obstruction. I was able to free up the terminal ileum using sharp dissection with Metzenbaum scissors. There was a hole in the mesentery measuring approximately 5 cm, and therefore, I elected to just resect this segment and bring out an ileostomy. The terminal ileum was then transected using a LUIS green load stapler approximately 5 cm from the cecum. I then took approximately 15 cm of terminal ileum and stapled this off with a LUIS green load stapler as well. Specimen was then removed. I [address] [address] OPERATIVE REPORT Name: ROBERTO ORELLANA BRIANNA Room #: 452-P [facility] IN M.R.#: [id number] Admission: 04/11/21 Attend Phys: Sandy Henderson Discharge: Date of : 49 Report #: [id number] brought out the distal ileum through an incision in the right lower quadrant of the abdomen. It was brought out through the skin. I then ran the small bowel proximally and distally and there were no areas of other obstruction. There were no areas of injury to the small bowel. There was no perforation. The abdomen was copiously irrigated with warm normal saline. The fascia was closed with #1 looped PDS. Skin was closed with yany. The ileostomy was then fashioned using a Tarah ileostomy with a 4-0 Vicryl suture. Sterile dressings were applied. COMPLICATIONS: None. DISPOSITION: The patient was taken to recovery in satisfactory condition. <ELECTRONICALLY SIGNED> By: Andre Ly MD 05/02/21 0651 [id number] 43 Andre Ly MD /nt
[2021-05-02 07:16] VITALS: BP 109/48
[2021-05-02 08:05] LABS: ABSOLUTE NEUTROPHILS 5.2 thou/uL (1.4-8.2); EOSINOPHILS 4.7 % (0.0-3.0); HEMOGLOBIN 9.4 gm/dL (12.0-15.0); LYMPHOCYTES 13.8 % (24.0-44.0); MCH 29.3 pg (26.0-34.0); MCHC 32.3 g/dL (28.0-37.0); MCV 90.6 fL (80.0-100.0); MONOCYTES 9.6 % (1.0-8.0); PLATELET COUNT 309 thou/uL (150-400); POLYS 70.9 % (36.0-66.0); RDW 15.3 % (10.5-14.5); WBC 7.3 thou/uL (4.0-11.0)
[2021-05-02 08:16] LABS: CALCIUM 8.3 mg/dL (8.5-10.1); MAGNESIUM 1.9 mg/dL (1.8-2.4); PHOSPHORUS 3.4 mg/dL (2.6-4.7); POTASSIUM 4.2 mmol/L (3.5-5.1)
[2021-05-02] MEDS ORDERED: TRAZODONE HCL50 MG PO (11:06)
[2021-05-02] MEDS ORDERED: BACITRACIN ZINC28 GM TOP (11:06)
[2021-05-02] MEDS ORDERED: FLUCONAZOLE 10100 MG PO (11:06)
[2021-05-02] MEDS ORDERED: TRAMADOL 50 MG50 MG PO (11:06)
[2021-05-02] MEDS ORDERED: CEFUROXIME250 MG PO (11:06)
[2021-05-02] MEDS ORDERED: COZAAR 50 MG TA50 M1 PO (11:06)
[2021-05-02] MEDS ORDERED: PEPCID20 MG PO (11:06)
--- NOTE | 2021-05-02 11:51 | NUR ---
CM SPOKE WITH [facility] THIS AM AND PROVIDED INFO ON HOW PT HAD DONE WITH THERAPY LAST. FACILITY INDICATED THEY HAD RECEIVED AUTH. CARE TEAM INDICATED THAT PT IS MEDICLLY STABLE TO DC TO [facility] THIS DAY. RAPID COVID TO BE COLLECTED. ORDERS TO BE FAXED. CHART COPY ORDERED. STRETCHER TRANSPORT ARRANGED FOR [phone]. PT AND DTR ARE AWARE AND AGREEABLE.
--- NOTE | 2021-05-02 14:15 | NUR ---
Called to give report to [facility] facility phone number [phone].
--- NOTE | 2021-05-02 14:22 | NUR ---
[facility]
[2021-05-02 15:42] VITALS: BP 105/66
--- NOTE | 2021-05-02 16:56 | NUR ---
Patient left the facility at 1645 with EMS via stretcher, all questions and concerns were addressed. Belongings with family, patient aware. All questions and concerns were addressed, right IJ TLC and guzman catheter removed
--- NOTE | 2021-05-04 10:37 | HC ---
[facility] [address] [place] [address] CONSULTATION Name: ROBERTO ORELLANA Room #: 452-P [facility] IN M.R.#: [id number] Admission: 04/11/21 Attend Phys: Sandy Vu Henderson Discharge: 05/02/21 Date of : 49 Report #: [id number] THIS REPORT FOR: cc: Bryant Sprague MD, Rene P. MD Althoff, Jeffrey R. MD ~ DATE OF SERVICE: 05/02/2021 CHIEF COMPLAINT: Peristomal ulceration. HISTORY: This is a 76-year-old female patient who was admitted to the hospital on 04/11/2021. She had a history of previous appendectomy, hysterectomy, cholecystectomy and gastric sleeve, who presented with worsening abdominal pain. She underwent an exploratory laparotomy on 04/12/[address] Ly, underwent a lysis of adhesions. She subsequently underwent a second exploratory laparotomy with a small bowel resection and ileostomy on 04/20/2021. She is scheduled for discharge later today, and she is going to [facility]. She was noted to have some ulceration to the peristomal area and I have been asked to see her with regard to recommendations for wound care in that area. She has a surgical incision that is being managed by Dr. Ly. PAST MEDICAL HISTORY: Positive for hypothyroidism, hypertension, elevated cholesterol, sleep apnea requiring CPAP, type 2 diabetes mellitus, previous appendectomy, hysterectomy and cholecystectomy, history of a DVT in the left leg, history of atrial fibrillation, and history of prior gastric sleeve. SOCIAL HISTORY: Negative for alcohol or tobacco use. FAMILY HISTORY: Noncontributory. MEDICATIONS: Include tramadol, metoprolol, Xarelto, melatonin, losartan, and levothyroxine. ALLERGIES: CODEINE AND CONTRAST DYE. REVIEW OF SYSTEMS: CONSTITUTIONAL: The patient denies fever, chills or weight loss. NEUROLOGICAL: The patient denies focal weakness, some tingling. EYES: The patient denies any visual changes, redness or drainage. ENT: The patient denies earache, nasal drainage, sore throat. CARDIOVASCULAR: The patient denies chest pain, palpitations, or diaphoresis. PULMONARY: The patient denies cough or shortness of breath. GASTROINTESTINAL: The patient complains of some mild abdominal discomfort and some discomfort specifically around her ileostomy site. ORTHOPEDIC: The patient denies pain or swelling in the extremities. [address] [address] CONSULTATION Name: ROBERTO ORELLANA Room #: 452-P [facility] IN M.R.#: [id number] Admission: 04/11/21 Attend Phys: Sandy Henderson Discharge: 05/02/21 Date of : 47 Report #: [id number] Others systems in a 14-point review of systems are negative. PHYSICAL EXAMINATION: VITAL SIGNS: At this time include temperature 36.3, pulse 84, respiration 16, blood pressure 109/48. GENERAL: This is a well-developed female patient who appears to be in minimal distress. HEENT: Head is normocephalic and atraumatic. Extraocular movements are intact. Nose and throat are clear. NECK: Supple. LUNGS: Diminished. HEART: Regular. ABDOMEN: Obese, soft, nontender. She has a surgical incision line in the lower left portion of the abdomen with a dry surgical dressing in place. She has a midline ileostomy. There is some ulceration on both sides, more so on the right than on the left. The ostomy appears to be pink and viable and functioning. There is no evidence of infection or cellulitis to the abdominal wall, although there is some mild tenderness. NEUROLOGIC: The patient is alert, oriented, and appropriate. LABORATORY STUDIES: Include white blood cell count 7.3 with a hemoglobin of 9.4 and hematocrit of 29.0. Serum sodium 138, potassium 4.2, chloride 105, CO2 27, BUN 16, creatinine 1.0, glucose of 98. CLINICAL IMPRESSION: 1. Ulceration in the parastomal region of the abdominal wall with recent ileostomy after small bowel resection. A recent CT scan over the weekend demonstrated a parastomal fluid collection and no evidence of small-bowel obstruction. 2. Diabetes mellitus. 3. Small-bowel obstruction that appears to be related to prior adhesions. 4. Hypertension. 5. Chronic kidney disease stage III. 6. Paroxysmal atrial fibrillation. RECOMMENDATIONS: At this point in time, we will recommend crusting with stoma powder and skin prep to the periostomy region, and we will use a hydrocolloid dressing around the stoma and then use a convex ring to adhere the stoma. This will be changed on a normal schedule unless there is separation or additional leakage. We will continue with regular medications and ongoing nutritional support. We will likely follow her at [facility] and [address] [address] CONSULTATION Name: ROBERTO ORELLANA Room #: 452-P [facility] IN M.R.#: [id number] Admission: 04/11/21 Attend Phys: Sandy Womack Beatriz Discharge: 05/02/21 Date of : 49 Report #: [id number] adjustments to the treatment regimen as needed. The patient and her daughter are in agreement and I appreciate having been asked to see her in consultation. <ELECTRONICALLY SIGNED> By: Delio Aleman MD 05/04/21 1037 [id number] 1834 Delio Aleman MD /nt
== END 2021-05-02 16:45 | DRG 329 ==
LOC: ER 01:05 → 4W 05:18 → EROBS 05:18 → 4W 11:45
PROVIDERS: Anesthesiology; Hospitalist; Internal Medicine; Nurse Practitioner Family; Student in an Organized Health Care Education/Training Program; ADMIT Hospitalist; ATTEND Hospitalist
PROC: 0DJD4ZZ Inspection of Lower Intestinal Tract, Percutaneous Endoscopic Approach (ICD-10-PCS; principal; 2021-04-12)
PROC: 0DNB0ZZ Release Ileum, Open Approach (ICD-10-PCS; principal; 2021-04-12)
PROC: 0D9670Z Drainage of Stomach with Drainage Device, Via Natural or Artificial Opening (ICD-10-PCS; 2021-04-17)
PROC: 0DBB0ZZ Excision of Ileum, Open Approach (ICD-10-PCS; 2021-04-20)
PROC: 02HV33Z Insertion of Infusion Device into Superior Vena Cava, Percutaneous Approach (ICD-10-PCS; 2021-04-20)
PROC: 0D1B0Z4 Bypass Ileum to Cutaneous, Open Approach (ICD-10-PCS; 2021-04-20)
PROC: B548ZZA Ultrasonography of Superior Vena Cava, Guidance (ICD-10-PCS; 2021-04-20)
DX: K56.50 Intestinal adhesions [bands], unspecified as to partial versus complete obstruction (principal); N17.0 Acute kidney failure with tubular necrosis; R65.11 Systemic inflammatory response syndrome (SIRS) of non-infectious origin with acute organ dysfunction; G92.8 Other toxic encephalopathy; E43 Unspecified severe protein-calorie malnutrition; N39.0 Urinary tract infection, site not specified; Z68.41 Body mass index [BMI] 40.0-44.9, adult; K94.19 Other complications of enterostomy; B37.2 Candidiasis of skin and nail; E78.00 Pure hypercholesterolemia, unspecified; K56.7 Ileus, unspecified; E78.5 Hyperlipidemia, unspecified; I48.0 Paroxysmal atrial fibrillation; L98.499 Non-pressure chronic ulcer of skin of other sites with unspecified severity; E03.9 Hypothyroidism, unspecified; E11.22 Type 2 diabetes mellitus with diabetic chronic kidney disease; I12.9 Hypertensive chronic kidney disease with stage 1 through stage 4 chronic kidney disease, or unspecified chronic kidney disease; N18.30 Chronic kidney disease, stage 3 unspecified; K21.9 Gastro-esophageal reflux disease without esophagitis; B96.89 Other specified bacterial agents as the cause of diseases classified elsewhere; G47.33 Obstructive sleep apnea (adult) (pediatric); E66.01 Morbid (severe) obesity due to excess calories; N20.0 Calculus of kidney; F41.9 Anxiety disorder, unspecified; F32.A Depression, unspecified; F34.1 Dysthymic disorder; R53.81 Other malaise; D64.9 Anemia, unspecified; Z20.822 Contact with and (suspected) exposure to COVID-19; Z98.84 Bariatric surgery status; Z90.49 Acquired absence of other specified parts of digestive tract; Z86.718 Personal history of other venous thrombosis and embolism; Z90.710 Acquired absence of both cervix and uterus; Z79.899 Other long term (current) drug therapy; Y83.2 Surgical operation with anastomosis, bypass or graft as the cause of abnormal reaction of the patient, or of later complication, without mention of misadventure at the time of the procedure; Z88.5 Allergy status to narcotic agent; Z91.041 Radiographic dye allergy status; Z87.891 Personal history of nicotine dependence; Z79.01 Long term (current) use of anticoagulants; Z99.81 Dependence on supplemental oxygen; Y92.89 Other specified places as the place of occurrence of the external cause
CPT/HCPCS: 10040; 50010; 50093; 50101; 50386; 50411; 50455; 50555; 51412; 51708; 51714; 52265; 52266; 53307; 53314; 56525; 56526; 56527; 56528; 57092; 57103; 58574; 58586; 62110; 62900; 70005

== ENCOUNTER 2021-05-17 23:37 | Inpatient (IN) | payer OTHER ==
[~2021-05-17] VITALS: Ht 144.8 cm; Wt 82.1 kg
--- NOTE | ~2021-05-17 | EMS ---
[facility] [address] [place] [address] EMS Patient Care Report Name: ROBERTO ORELLANA Room #: 170-10 ADM IN M.R.#: [id number] Admission: 05/18/21 Attend Phys: Venkata Madesn MD Discharge: Date of : 47 Report #: [id number] THIS REPORT FOR: //name// Report Transmitted: 05/18/2021 01:26 EMS Care Summary [place], [place]/[facility] Incident [id number] @ 05/17/2021 23:01 Incident Location [facility] H8 Patient ROBERTO ORELLANA Female, 76 Years 1945 Patient Address Patient History Other,Cardiac Arrythmia,Diabetes,Hypertension (HTN),Kidney/Renal Failure,Hyperlipidemia,Anxiety,Hypothyroidism, Patient Allergies Codeine,Intravenous Dye, Chief Complaint a fib/hypotension Disposition Transported No Lights/[place] Dispatch Reason Breathing Problem Transported To [facility] Narrative pt found seated in recliner chair. she is upset and reports that she could tell she went into a fib @ 1700 and pressed her call light. no one responded to her light until almost 2300. pt states she can tell her HR is changing rates and that is how she knows. she c/o feeling like she wants to go to sleep but does say she was given a sleep aid earlier. she also c/o abd pain but that is her current norm due to 2 recent surgeries for block bile duct. pt exam, EKG shows a fib and pt is hypotensive. tx as listed in flow chart, [facility] [address] [place] [address] EMS Patient Care Report Name: ROBERTO ORELLANA Room #: 170-10 ADM IN M.R.#: [id number] Admission: 05/18/21 Attend Phys: Venkata Madsen MD Discharge: Date of : 49 Report #: [id number] transport to pt choice, [facility]. no changes, report to staff. Initial Vitals @23:20P: 120,R: 18,BP: 103/87,Pain: 8/10,GCS: 14,Temp: 98.7F,Glucose: 143,SpO2: 100,Revised Trauma: 12, Assessments @23:11MENTAL:Person Oriented,Time Oriented,Event Oriented,Place Oriented,Other,SKIN:Other,Pale,HEENT:Head/Face: No Abnormalities,LUNG SOUNDS:General: Other,ABDOMEN:General: Other,PELVIS//GI:EXTREMITIES:PULSE:NEURO:Other, Impression Cardiac arrhythmia/dysrhythmia Procedures @23:15 Stretcher Response: Unchanged @23:11 ALS Assessment Response: Unchanged @23:17 IV Therapy - Saline Lock 10cc (20 ga) Site: Antecubital-Right Response: UnchangedSucceeded @23:16 3-Lead ECG Response: Unchanged @23:17 Oxygen FlowRate: 2 Device: Nasal Cannula (NC) Response: UnchangedSucceeded Timeline 22:59,Call Received 22:59,Dispatch Notified 23:01,Dispatched 23:02,En Route 23:09,On Scene 23:11,At Patient 23:11,ALS Assessment,Response: Unchanged 23:15,Stretcher,Response: Unchanged 23:16,3-Lead ECG,Response: Unchanged 23:17,IV Therapy - Saline Lock 10cc 20 ga Site: Antecubital-Right,Response: UnchangedSucceeded, 23:17,Oxygen FlowRate: 2 Device: Nasal Cannula (NC) Response: UnchangedSucceeded, 23:20,BP: 103/87 M,PULSE: 120,RR: 18 R,SPO2: 100 Ox,ETCO2: ,B,PAIN: 8,GCS: 14, 23:30,Depart Scene 23:31,At Destination 23:55,Call Closed Disclaimer [address] [address] EMS Patient Care Report Name: ROBERTO ORELLANA [facility] Room #: 170-10 ADM IN [facility]#: [id number] Admission: 05/18/21 Attend Phys: Venkata Madsen MD Discharge: Date of : 49 Report #: [id number] v1.1 Copyright 2020 [employer] This EMS Care Summary contains data elements from the applicable legal record (which may be displayed differently). It is designed to provide pertinent information for the following purposes: continuity of care, clinical quality, and state data reporting. The complete legal record is available to ED staff and administrators of the receiving hospital in [facility]'s Patient Tracker. All data is provided "as is."
--- NOTE | ~2021-05-17 | EMS ---
[facility] [address] [place] [address] EMS Patient Care Report Name: ROBERTO ORELLANA Room #: 453-P ADM IN M.R.#: [id number] Admission: 05/18/21 Attend Phys: Sandy Henderson Discharge: Date of : 49 Report #: [id number] THIS REPORT FOR: //name// Report Transmitted: 05/19/2021 07:32 EMS Care Summary [place], [place]/[facility] Incident [id number] @ 05/17/2021 23:01 Incident Location [facility][note 3] [facility] H8 Patient ROBERTO ORELLANA Female, 76 Years 1945 Patient Address Patient History Other,Cardiac Arrythmia,Diabetes,Hypertension (HTN),Kidney/Renal Failure,Hyperlipidemia,Anxiety,Hypothyroidism, Patient Allergies Codeine,Intravenous Dye, Chief Complaint a fib/hypotension Disposition Transported No Lights/[place] Dispatch Reason Breathing Problem Transported To [facility] Narrative pt found seated in recliner chair. she is upset and reports that she could tell she went into a fib @ 1700 and pressed her call light. no one responded to her light until almost 2300. pt states she can tell her HR is changing rates and that is how she knows. she c/o feeling like she wants to go to sleep but does say she was given a sleep aid earlier. she also c/o abd pain but that is her current norm due to 2 recent surgeries for block bile duct. pt exam, EKG shows a fib and pt is hypotensive. tx as listed in flow chart, [facility] [address] [place] [address] EMS Patient Care Report Name: ROBERTO ORELLANA Room #: 453-P ADM IN M.R.#: [id number] Admission: 05/18/21 Attend Phys: Sandy Henderson Discharge: Date of : 49 Report #: [id number] transport to pt choice, [facility]. no changes, report to staff. Initial Vitals @23:20P: 120,R: 18,BP: 103/87,Pain: 8/10,GCS: 14,Temp: 98.7F,Glucose: 143,SpO2: 100,Revised Trauma: 12, Assessments @23:11MENTAL:Person Oriented,Time Oriented,Event Oriented,Place Oriented,Other,SKIN:Other,Pale,HEENT:Head/Face: No Abnormalities,LUNG SOUNDS:General: Other,ABDOMEN:General: Other,PELVIS//GI:EXTREMITIES:PULSE:NEURO:Other, Impression Cardiac arrhythmia/dysrhythmia Procedures @23:15 Stretcher Response: Unchanged @23:11 ALS Assessment Response: Unchanged @23:17 IV Therapy - Saline Lock 10cc (20 ga) Site: Antecubital-Right Response: UnchangedSucceeded @23:16 3-Lead ECG Response: Unchanged @23:17 Oxygen FlowRate: 2 Device: Nasal Cannula (NC) Response: UnchangedSucceeded Timeline 22:59,Call Received 22:59,Dispatch Notified 23:01,Dispatched 23:02,En Route 23:09,On Scene 23:11,At Patient 23:11,ALS Assessment,Response: Unchanged 23:15,Stretcher,Response: Unchanged 23:16,3-Lead ECG,Response: Unchanged 23:17,IV Therapy - Saline Lock 10cc 20 ga Site: Antecubital-Right,Response: UnchangedSucceeded, 23:17,Oxygen FlowRate: 2 Device: Nasal Cannula (NC) Response: UnchangedSucceeded, 23:20,BP: 103/87 M,PULSE: 120,RR: 18 R,SPO2: 100 Ox,ETCO2: ,B,PAIN: 8,GCS: 14, 23:30,Depart Scene 23:31,At Destination 23:55,Call Closed Disclaimer [address] [address] EMS Patient Care Report Name: ROBERTO ORELLANA [facility] Room #: 453-P [facility] IN ..#: [id number] Admission: 05/18/21 Attend Phys: Sandy Henderson Discharge: Date of : 49 Report #: [id number] v1.1 Copyright 2020 [employer] This EMS Care Summary contains data elements from the applicable legal record (which may be displayed differently). It is designed to provide pertinent information for the following purposes: continuity of care, clinical quality, and state data reporting. The complete legal record is available to ED staff and administrators of the receiving hospital in [facility]'s Patient Tracker. All data is provided "as is."
[~2021-05-17 23:37] MED LIST changes: +BACITRACIN ZINC28 GM TOP; +CEFUROXIME250 MG PO; +COZAAR 50 MG TA50 M1 PO; +DULCOLAX STOOL100 M1 PO; +FLUCONAZOLE 10100 MG PO; +METOPROLOL SUC100 MG PO; +PEPCID20 MG PO; +TRAZODONE HCL50 MG PO; +XARELTO20 MG PO
[2021-05-17 23:38] VITALS: BP 74/40
[2021-05-18] VITALS (34 sets, daily range): BP systolic 46–133; BP diastolic 21–98
[2021-05-18 00:47] LABS: ABSOLUTE NEUTROPHILS 10.6 thou/uL (1.4-8.2); BASOPHILS 0.3 % (0.0-2.0); EOSINOPHILS 0.2 % (0.0-3.0); HEMATOCRIT 36.2 % (37.0-47.0); HEMOGLOBIN 11.8 gm/dL (12.0-15.0); LYMPHOCYTES 11.4 % (24.0-44.0); MCH 28.6 pg (26.0-34.0); MCHC 32.5 g/dL (28.0-37.0); MCV 88.1 fL (80.0-100.0); MONOCYTES 7.4 % (1.0-8.0); PLATELET COUNT 343 thou/uL (150-400); POLYS 80.7 % (36.0-66.0); RBC 4.11 mil/uL (4.20-5.00); RDW 16.1 % (10.5-14.5); WBC 13.2 thou/uL (4.0-11.0)
[2021-05-18 00:59] LABS: CALCIUM 10.2 mg/dL (8.5-10.1); CREATININE 5.3 mg/dL (0.6-1.0)
[2021-05-18 01:09] LABS: URINE BILIRUBIN 1+ (Negative); URINE BLOOD 3+ (Negative); URINE CLARITY CLOUDY; URINE COLOR YELLOW; URINE GLUCOSE-RANDOM* NEGATIVE (Negative); URINE KETONES NEGATIVE (Negative); URINE NITRITE-REFLEX NEGATIVE (Negative); URINE PROTEIN (DIPSTICK) TRACE (Negative); URINE SPECIFIC GRAVITY >= 1.030 (1.005-1.035); URINE UROBILINOGEN 0.2 E.U./dl (0.2-1.0)
[2021-05-18 01:11] LABS: URINE LEUKOCYTES-REFLEX 2+ (Negative)
[2021-05-18 01:20] LABS: AMP/METHAMP Negative (Negative); BARBITURATES Negative (Negative); BENZODIAZEPINES Negative (Negative); COCAINE Negative (Negative); METHADONE Negative (Negative); OPIATES Negative (Negative); PCP Negative (Negative)
[2021-05-18 01:23] LABS: CASTS None Seen /LPF (None Seen); CRYSTALS None Seen /LPF (None Seen); MUCUS 4-6 Moderate strn/LPF (None Seen); SQUAMOUS 4-10 Moderate /LPF (0-3); URINE RBC >20 Many /HPF (NONE SEEN)
[2021-05-18 03:37] LABS: CALCIUM 7.2 mg/dL (8.5-10.1); CREATININE 3.8 mg/dL (0.6-1.0)
--- NOTE | 2021-05-18 04:57 | NUR ---
Pt admitted from ED for symptomatic a-fib, hyperkalemia, and renal failure. Potassium was 7.0 on admit to ED, now down to 5.0. Pt on 3 L nasal canula, sat 100%. England patent with isabel colored urine. Pt is oliguric. Pt currently finishing 1 L NS bolus from ED, then will start maintenance fluids. Pt expresses wish to assign DPOA for health care to her daughter and also to be Do Not Resuscitate. Will consult case managment and notify primary physician. Colostomy on right abdomen emptied of 350 cc liquid brown stool. Mnitor a-fib with rates 80-97.
--- NOTE | 2021-05-18 07:26 | EKG ---
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 : 1945 Requested By: Johnathan Bloom Order Number: [id number] MD: Uday Cota Measurements Intervals [place] Rate: 115 P: [place]: QRS: -137 QRSD: 117 T: 3 QT: 314 QTc: 435 Interpretive Statements Atrial fibrillation Inferior infarct, old Probable anteroseptal infarct, old Compared to ECG 04/12/2021 15:06:13 Prolonged QT interval no longer present Electronically Signed On 05-18-2021 7:26:15 PRODUCT/DEVICE TECHNOLOGIST by Uday Cota [email or web address] <ELECTRONICALLY SIGNED> By: Uday Cota MD, [facility] 05/18/21 0726 [id number] [id number] Uday Cota MD, FAC /EPI
--- NOTE | 2021-05-18 15:21 | NUR ---
Case opened to follow for dc planning. Pt is currently in the ICu with afib/rvr, UTI, hydronephrosis d/t kidney stone. Pt is being seen by urology and cardiology. Electro Mechanical Solar Technician visited briefly with the pt but she is very fatigued. PT varianced as well and will reattempt eval tomorrow. Pt requesting cm visit with her dtr regarding her dc planning needs. She was readmitted from [facility] where she has been rehabing for the past couple of weeks. They indicate that she was doing well at a CGA/SBA level and was hoping to dc home with hh soon. Her dtr confirmed this and indicates that the pt lives across the street from her, has needed dme and has homemaker and RN services through [facility] paid for by the [place]. Clinical updated faxed to [facility]. They are able to consider readmission and submit for new ins auth if pt has had a decline in her functional status. Dtr in agreement with returning to SNF if needed. Will f/u tomorrow and fax them her therapy evaluations. Pt placement of a rt nephro tube once she has cardiac clearence. Urine cultures are pending and she is on iv atb. Will follow.
--- NOTE | 2021-05-18 15:44 | NUR ---
ADV. DIR. CONSULT [id number] WAS ATTEMPTED TO BE COMPLETED TODAY BY THIS PUSH BUTTON SWITCH ASSEMBLER. PT. CONVERSED WELL. SHE WANTED TO WAIT UNTIL AT LEASET TOMORROW AFTER SHE SPOKE TO HER DAUGHTER. DTR WILL BE DPOA.
--- NOTE | 2021-05-18 22:55 | NUR ---
Pt transferred to room 453 with cell phone, ore charger, and clothes.
[2021-05-19] VITALS (52 sets, daily range): BP systolic 86–143; BP diastolic 31–78
[2021-05-19 05:29] LABS: HEMATOCRIT 33.3 % (37.0-47.0); HEMOGLOBIN 10.8 gm/dL (12.0-15.0); MCH 29.1 pg (26.0-34.0); MCHC 32.3 g/dL (28.0-37.0); RBC 3.7 mil/uL (4.20-5.00); RDW 16.4 % (10.5-14.5); WBC 8.3 thou/uL (4.0-11.0)
[2021-05-19 06:00] LABS: CALCIUM 8.6 mg/dL (8.5-10.1); PHOSPHORUS 3.5 mg/dL (2.5-4.9)
[2021-05-19 06:05] LABS: CREATININE 2.6 mg/dL (0.6-1.0)
[2021-05-19 06:06] LABS: POTASSIUM 5.5 mmol/L (3.5-5.1)
--- NOTE | 2021-05-19 06:41 | NUR ---
patient was extremely tachy on monitor 110-140, called thread separator new order of 250 bolus d/t low blood pressure. patient in bed hr is less than 100. patient blood culture was gram positive coccie called thread separator no new order d/t patient is on abt. fall precaution in place. patient in bed asleep at this time breathing regular and unlaboured.
--- NOTE | 2021-05-19 10:54 | NUR ---
VAT CONSULTED FOR CVL PLACEMENT. LEFT TL 6FR JACC CATHETER TO IJ. TRIMMED 20CM/3CM EXTERNAL. LOT #[id number]. PT TOLERATED WELL. CXR FOR TIP LOCATION.
--- NOTE | 2021-05-19 11:04 | NUR ---
ORDERS FOR EVAL AND TREAT HOWEVER Pt TRANSFERRED TO ICU THIS MORNING. WILL PLACE ON HOLD AND AWAIT NEW ORDERS TO INITIATE
--- NOTE | 2021-05-19 12:54 | EKG ---
[address] [place] [address] ELECTROCARDIOGRAM REPORT Name: KIMANI ORELLANACHARLESRENATO BRIANNA Room #: 250-P ADM IN M.R.#: [id number] Admission: 05/18/21 Attend Phys: Sandy Henderson Discharge: Date of : 49 Report #: [id number] [facility] Test Date: 2021-05-19 Test Time: 09:09:42 Pat Name: ROBERTO ORELLANA Department: Room: 250 P Gender: F Roller Pneumatic: FSCHWALDAVID : 1945 Requested By: Sandy Henderson Order Number: [id number] MD: Uday Cota Measurements Intervals [place] Rate: 87 P: [place]: QRS: 145 QRSD: 92 T: 4 QT: 339 QTc: 408 Interpretive Statements Atrial fibrillation Left posterior fascicular block Low voltage, extremity and precordial leads Anteroseptal infarct, age indeterminate Compared to ECG 05/17/2021 23:49:23 Left posterior fascicular block now present Low QRS voltage now present Myocardial infarct finding still present Electronically Signed On 05-19-2021 12:54:13 POWER EQUIPMENT TECHNOLOGY INSTRUCTOR by Uday Cota [email or web address] <ELECTRONICALLY SIGNED> By: Uday Cota MD, FACC 05/19/21 1254 8 09 Uday Cota MD, FAC /EPI
--- NOTE | 2021-05-19 12:56 | NUR ---
RADIOLOGY READ CXR AT 1058 AND REPORTED THAT IJ TIP LOCATED AT [facility]. RELEASED LINE FOR USE, PER HOSPITAL VASCULAR ACCESS POLICY.
--- NOTE | 2021-05-19 13:23 | NUR ---
Pt. with mental status chane & low BP so CHICKEN AND FISH CLEANER initiated-see flowsheet
--- NOTE | 2021-05-19 15:18 | NUR ---
MILENA reviewed chart and spoke with nursing and attending physician. Pt was transferred to ICU from 4W after rapid responsse was called. Plan for right-sided nephrostomy tube placement today pending more definitive treatment with stone removal. Pt currently off the unit in IR. SW updated Dona-Alon liaison. MILENA is following to assist as needed with discharge planning.
[2021-05-19 20:06] LABS: URINE BILIRUBIN NEGATIVE (Negative); URINE BLOOD 3+ (Negative); URINE CLARITY CLOUDY; URINE COLOR YELLOW; URINE GLUCOSE-RANDOM* NEGATIVE (Negative); URINE KETONES NEGATIVE (Negative); URINE LEUKOCYTES 3+ (Negative); URINE NITRITE NEGATIVE (Negative); URINE PROTEIN (DIPSTICK) NEGATIVE (Negative); URINE SPECIFIC GRAVITY 1.025 (1.005-1.035); URINE UROBILINOGEN 0.2 E.U./dl (0.2-1.0)
[2021-05-19 20:25] LABS: YEAST Present (None Seen)
[2021-05-19 20:26] LABS: BACTERIA 1-9 Few /HPF (None Seen); CASTS None Seen /LPF (None Seen); CRYSTALS None Seen /LPF (None Seen); SQUAMOUS 0-3 Few /LPF (0-3); URINE RBC 3-10 Few /HPF (NONE SEEN)
[2021-05-20] VITALS (21 sets, daily range): BP systolic 90–150; BP diastolic 45–80
[2021-05-20 06:52] LABS: HEMATOCRIT 25.6 % (37.0-47.0); MCH 28.8 pg (26.0-34.0); MCHC 32.4 g/dL (28.0-37.0); RBC 2.88 mil/uL (4.20-5.00); RDW 16.2 % (10.5-14.5); WBC 7.8 thou/uL (4.0-11.0)
[2021-05-20 06:53] LABS: ALBUMIN 1.5 g/dL (3.4-5.0); CALCIUM 6.9 mg/dL (8.5-10.1); MAGNESIUM 1.2 mg/dL (1.8-2.4); PHOSPHORUS 2.1 mg/dL (2.5-4.9); POTASSIUM 3.8 mmol/L (3.5-5.1)
[2021-05-20 06:54] LABS: CREATININE 1.6 mg/dL (0.6-1.0)
[2021-05-20 07:15] LABS: HEMOGLOBIN 8.3 gm/dL (12.0-15.0)
--- NOTE | 2021-05-20 08:43 | HC ---
[facility] [address] [place] [address] CONSULTATION Name: ROBERTO ORELLANA Room #: 250-P ADM IN M.R.#: [id number] Admission: 05/18/21 Attend Phys: Sandy Henderson Discharge: Date of : 49 Report #: [id number] THIS REPORT FOR: cc: Bryant Sprague MD, Rene P. MD Barry, Joseph W. MD ~ DATE OF SERVICE: 05/19/2021 INFECTIOUS DISEASE CONSULTATION ATTENDING PHYSICIAN: Dr. Henderson. REASON FOR EVALUATION: Gram-positive septicemia, presentation with obstructive uropathy. She is in renal failure. HISTORY OF PRESENT ILLNESS: Chart reviewed. The patient was examined. This is a 76-year-old woman who states she has not had significant medical history over the last several years. She did undergo gastric sleeve procedure. She does have diabetes mellitus. She has known history of staghorn calculi involving the right side. She had been hospitalized in April this year with small-bowel obstruction. She did require initial lysis of adhesions via laparoscopic procedure. Initially, she was converted to a laparotomy, followup several days later with recurrent obstruction led to an end-ileostomy. She spent extended period of time in the hospital. She was discharged in debilitated state. She was readmitted from this facility. She was noted to be progressively weak, fatigued and was found to have atrial fibrillation with uncontrolled heart rate. Evaluation was undertaken and was found to have a sodium of 124, elevated potassium at 7.0, creatinine of 5.3. Urinalysis did show pyuria. Imaging suggested persistence of the staghorn calculi on the right. Blood cultures collected at time of admission with gram-positive cocci. She is seen in intensive care unit. She has not required pressor support. She was resuscitated and creatinine is improved to 2.6. She is scheduled to undergo right-sided nephrostomy tube pending more definitive treatment. She was initiated on Zosyn and vancomycin. She is generally lucid at this point. Denies significant pulmonary or gastrointestinal related complaints. ALLERGIES: CODEINE. CURRENT MEDICATIONS: Include Zosyn, sodium bicarbonate, metoprolol, hydrocortisone, levothyroxine, cyanocobalamin, cholecalciferol, tramadol, melatonin, ondansetron and vancomycin. PAST MEDICAL HISTORY: As noted above, hypertension, high cholesterol, obstructive sleep apnea, underlying COPD, occasional requirement of supplemental oxygen, diabetes mellitus, previous appendectomy, hysterectomy, cholecalciferol, atrial fibrillation, history of DVT, had a gastric sleeve with recurrent [facility] [address] [place] [address] CONSULTATION Name: ROBERTO ORELLANA [facility] Room #: [facility] IN .R.#: [id number] Admission: 05/18/21 Attend Phys: Sandy Henderson Discharge: Date of : 49 Report #: [id number] staghorn calculi, recent small-bowel obstruction, ileus, anxiety, depression, anemia, morbid obesity, malnutrition. SOCIAL HISTORY: Nonsmoker, no ethanol, no illicit drug use. FAMILY HISTORY: Noncontributory. REVIEW OF SYSTEMS: Otherwise, unremarkable. PHYSICAL EXAMINATION: GENERAL: She appears chronically ill, undernourished. She is pleasant, cooperative, in moderate distress. VITAL SIGNS: Temperature 97.5, pulse 84, respirations 18, blood pressure 86/62. SKIN: Warm, dry, no rashes. HEENT: Normocephalic. Extraocular muscles intact. NECK: Supple. LUNGS: Diminished breath sounds. HEART: Irregular, I do not appreciate any murmur. ABDOMEN: Distended, obese, firm. No peritoneal signs. GENITOURINARY AND RECTAL: Deferred. LABORATORY DATA: Chest x-ray, cardiomegaly without acute process. Also some left basilar atelectasis. Urine culture, less than 10 to the 4th to normal genitourinary tract akhil. Most recent BMP: Sodium 137, potassium 5.5, chloride 110, bicarbonate is 13, anion gap of 14, BUN and creatinine 49 and 2.5, is down from 5.3. Albumin of 2.0. Blood cultures 2/2 with gram-positive cocci. CBC: White count of 8.3, H and H 10.8 and 33.3, platelets of 240. CT abdomen and pelvis as described above. Fluid collection in the subcutaneous fat in the left aspect of the large pannus, large staghorn type calculus on the right unchanged. ASSESSMENT AND PLAN: Gram-positive cocci septicemia in a patient with obstructive uropathy is somewhat unusual. We will continue combination therapy at this point adjusted for her renal failure, although that is improved. She would benefit from a nephrostomy tube, although we will likely need a more definitive treatment, seemingly with resuscitation. Her electrolyte abnormalities have improved. Monitor expectantly, certainly at risk for additional complications. We will add incentive spirometry. We will follow. <ELECTRONICALLY SIGNED> By: Raul Lagos MD 05/20/21 0843 1343 08 Raul Lagos MD /nt
--- NOTE | 2021-05-20 10:34 | 2DMMODE ---
[facility] [place] [address] [place] [address] 2 D/M-MODE ECHOCARDIOGRAM Name: ROBERTO ORELLANA [facility] Room #: 250-P ADM IN M.R.#: [id number] Admission: 05/18/21 Attend Phys: Sandy Henderson Discharge: Date of : 49 Report #: [id number] THIS REPORT FOR: cc: Bryant Sprague MD, Rene P. MD Santiago, Patrick MD [facility] ~ APPROVED REPORT Study performed: 05/20/2021 09:48:04 EXAM: Comprehensive 2D, Doppler, and color-flow Echocardiogram Patient Location: ICU Room #: 250 Status: routine BSA: 1.72 HR: 70 bpm BP: 102/58 mmHg Rhythm: Atrial Fibrillation Indications Atrial Fibrillation Hx: Cardiomyopathy, HTN, hLP. 2D Dimensions RVDd: 33.83 mm IVSd: 10.58 (7-11mm) LVOT Diam: 19.91 (18-24mm) LVDd: 43.48 mm PWd: 9.08 (7-11mm) Ascending Ao: 28.73 (22-36mm) LVDs: 32.94 (25-40mm) Left Atrium: 45.85 (27-40mm) Aortic Root: 31.75 mm Volumes Left Atrial Volume (Systole) Single Plane 4CH: 74.62 mL Single Plane 2CH: 80.26 mL LA ESV Index: 47.00 mL/m2 Aortic Valve AoV Peak Jimenez.: 1.44 m/s AO Peak Gr.: 8.29 mmHg LVOT Max P.82 mmHg LVOT Max V: 0.84 m/s EDEN Vmax: 1.82 cm2 Mitral Valve [facility] [address] [place] [address] 2 D/M-MODE ECHOCARDIOGRAM Name: ROBERTO ORELALNA Room #: [address] [place] [address] IN [facility]#: [id number] Admission: 05/18/21 Attend Phys: Sandy Womack [facility] Discharge: Date of : 49 Report #: [id number] MV Decel. Time: 193.99 ms MV E Max Jimenez.: 1.72 m/s Pulmonary Valve PV Peak Jimenez.: 0.82 m/s PV Peak Gr.: 2.68 mmHg Tricuspid Valve TR Peak Jimenez.: 2.39 m/s RAP Estimate: 10.00 mmHg TR Peak Gr.: 23.00 mmHg PA Pressure: 33.00 mmHg Left Ventricle The left ventricle is normal size. There is normal left ventricular wall thickness. Left ventricular systolic function is normal. LVEF is 50-55%. This study is not technically sufficient to allow evaluation of the LV diastolic function due to atrial fibrillation. Right Ventricle The right ventricle is normal size. The right ventricular systolic function is normal. Atria Left atrium is moderately dilated. Right atrium is mildly dilated. Aortic Valve The aortic valve is normal in structure. Trace aortic regurgitation. There is no aortic valvular stenosis. Mitral Valve Mild mitral annular calcification. Mild mitral regurgitation. Tricuspid Valve The tricuspid valve is normal in structure. Trace to mild tricuspid regurgitation. Estimated PAP is 33mmHg. Pulmonic Valve The pulmonary valve is normal in structure. There is no pulmonic valvular regurgitation. Great Vessels The aortic root is normal in size. The ascending aorta is normal in size. IVC is dilated and collapses <50% with inspiration. [facility] [address] [place] [address] 2 D/M-MODE ECHOCARDIOGRAM Name: ESTEBANKIMANIMICHAEL [facility] Room #: 250-P [facility] IN M.R.#: [id number] Admission: 05/18/21 Attend Phys: Sandy Layton Discharge: Date of : 49 Report #: [id number] Pericardium There is no pericardial effusion. <Conclusion> Normal left ventricle size/wall thickness Ejection fraction 55% Normal right ventricle size/function Left atrium moderately dilated Right atrium mildly dilated Normal aortic/mitral valve structure and function Normal mitral valve structure and function Mild tricuspid valve insufficiency Pulmonary systolic pressure estimated 33 mmHg No pericardial effusion Normal aortic root size. <ELECTRONICALLY SIGNED> By: Uday Cota MD, [facility] 05/20/21 1034 1034 1034 Uday Cota MD, FACC /INF
--- NOTE | 2021-05-20 11:23 | NUR ---
PT C/O OF LEFT LOWER LEG PAIN CONSTANT IN NATURE. PT NOT ON ANY DVT PROPHYLAXIS AT THIS TIME, PT DOES HAVE HX OF DVT. DR. PRESTON CONTACTED AT 1120, VENOUS DOPPLER US ORDERED.
--- NOTE | 2021-05-20 15:55 | NUR ---
MILENA reviewed chart and spoke with attending physician. Pt remains in the ICU. No weekend discharge planned. Will need therapy evals ordered when pt is able to participate. Insurance authorization needed for post-acute placement. MILENA updated Kendell at [facility]. MILENA is following to assist as needed [facility] discharge planning.
--- NOTE | 2021-05-20 21:26 | NUR ---
PT HAVING BLADDER SPASMS. HOS SHINGLES ROOFER HELPER CALLED AND OXYBUTIN 5MG ONETIME DOSE WAS ORDERED. WILL FOLLOW UP ON IMPROVMENT. WCTM.
[2021-05-21] VITALS (19 sets, daily range): BP systolic 111–148; BP diastolic 49–72
[2021-05-21 07:07] LABS: HEMATOCRIT 25.9 % (37.0-47.0); HEMOGLOBIN 8.2 gm/dL (12.0-15.0); MCH 28.2 pg (26.0-34.0); MCHC 31.8 g/dL (28.0-37.0); MCV 88.8 fL (80.0-100.0); RBC 2.92 mil/uL (4.20-5.00); RDW 16.8 % (10.5-14.5); WBC 7.1 thou/uL (4.0-11.0)
[2021-05-21 07:21] LABS: ALBUMIN 1.6 g/dL (3.4-5.0); CREATININE 1.3 mg/dL (0.6-1.0); MAGNESIUM 1.8 mg/dL (1.8-2.4); PHOSPHORUS 2.7 mg/dL (2.5-4.9); POTASSIUM 3.3 mmol/L (3.5-5.1)
--- NOTE | 2021-05-21 19:00 | NUR ---
Pt alert and oriented X4. pt transferred to [address] [place] [address] via bed by nursing staff.
--- NOTE | 2021-05-22 01:18 | NUR ---
ASSUMED PT CARE AT AROUND 1915 HRS. PT IS ALERT AND ORIENTED. PT IS PLEASANT. CHAVARRIA INTACT TO D/D, CLEAR YELLOW U/O. NEPHROSTOMY TUBE WITH SOME SMALL AMOUNT OF BLOODY DRAINAGE.COLOSTOMY WITH SOME SEMI FORMED STOOL. PT TOOK SOME SNACK, SHE DENIES NAY NAUSEA OR VOMITING.ROOM AIR WITH NO S/SX OF DISTRESS.TRAMADOL GIVEN FOR PAIN-WITH RELIEF.
[2021-05-22 03:40] LABS: ALBUMIN 1.8 g/dL (3.4-5.0); CALCIUM 7.2 mg/dL (8.5-10.1); CREATININE 1.3 mg/dL (0.6-1.0); PHOSPHORUS 2.1 mg/dL (2.6-4.7)
--- NOTE | 2021-05-22 05:18 | NUR ---
RECEIVED CARE OF THIS PATIENT AT 0000. PATIENT ALERT AND ORIENTED X4. IV PATENT IN LIJ WITH FLUIDS INFUSING. PATIENT REMAINS ON BEDREST. HAS CHAVARRIA, ILLEOSTOMY AND NEPHROSTOMY TUBE. DENIED PAIN. SLEPT MOST OF NIGHT.
[2021-05-22 07:27] VITALS: BP 136/81
--- NOTE | 2021-05-22 14:30 | NUR ---
ASSUMED PT CARE THIS AM. PT A&OX4, ABLE TO MAKE NEEDS KNOWN. PATIENT REPORTING NO PAIN, NUMBNESS, OR TINGLING. IV REMAINS PATENT, MEDICATION AND FLUIDS INFUSING WITHOUT ISSUE. PATIENT REMAINS ON ROOM AIR. PATIENT WITH A RIGHT NEPHROSTOMY TUBE AND A CHAVARRIA CATHETER. PATIENT ON TELEMETRY RUNNING A FIB. PATIENT HAS NOT AMBULATED WITH SHIFT. FALL PRECAUTIONS ARE IN PLACE, CALL LIGHT WITHIN REACH.
[2021-05-22 17:12] VITALS: BP 149/95
[2021-05-22 17:23] VITALS: BP 110/65
[2021-05-22 19:34] VITALS: BP 148/86
--- NOTE | 2021-05-23 04:26 | NUR ---
ASSUMED PT CARE THIS PM.PT IS ALERT AND ORIETED X4. PT HAS ILEOSTOMY, RIGHT NEPHROSTOMY AND CHAVARRIA IN PLACE. PT HAS MID-ABD INCISION WITH STERI STRIPS IN PLACE. PT C/O PAIN WHICH WAS MANGED BY PRN PAIN MEDS. MEDS WERE GIVEN PER EMAR ORDERS. NO VISIBLE SIGNOF DISTRESS WAS NOTED. FALL PRECAUTIONS IN PLACE. WILL CONTINUE TO MONITOR.
[2021-05-23 04:38] VITALS: BP 152/87
[2021-05-23 06:17] LABS: ALBUMIN 1.5 g/dL (3.4-5.0); CALCIUM 7.4 mg/dL (8.5-10.1); CREATININE 1.1 mg/dL (0.6-1.0); PHOSPHORUS 2.2 mg/dL (2.5-4.9); POTASSIUM 3.8 mmol/L (3.5-5.1)
[2021-05-23 09:12] LABS: HEMATOCRIT 27.6 % (37.0-47.0); HEMOGLOBIN 8.9 gm/dL (12.0-15.0); MCH 28.9 pg (26.0-34.0); MCHC 32.4 g/dL (28.0-37.0); MCV 89.3 fL (80.0-100.0); RBC 3.09 mil/uL (4.20-5.00); RDW 16.5 % (10.5-14.5)
--- NOTE | 2021-05-23 13:35 | NUR ---
PT WAS TRANSFERED TO 4W FROM ICU. CM ASKED RN CM TO PUT PT AND OT ORDERS IN THEY HAD BEEN ON HOLD WHEN PT WAS IN THE ICU. AWAITIING THERAPY EVALS. CM FAXED CLINICAL UPDATE TO IGN[facility]. ID INDICATING VANC AND MICAFUNGIN 1-2 MORE WEEKS. HOSPITALIST INDICATED THAT PT MAY BE DC READY TOMORROW. CM INDICATED THAT [facility] WOULD NEED NEW SKILLED AUTH FOR PT'S RETURN. CM FOLLOWING REGARDING DC PLANNING.
--- NOTE | 2021-05-23 18:21 | NUR ---
LT IJ REMOVED PER MD ORDER. PT WILL NEED A TUNNELED OR PICC FOR LT VANCO FOR HOME INFUSION.
[2021-05-23 19:25] VITALS: BP 133/56
--- NOTE | 2021-05-24 02:56 | NUR ---
ASSUMED PT CARE THIS PM. PT IS ALERT AND ORIENTED X4. PT HAS NEPHROSTOMY, CHAVARRIA AND ILEOSTOMY IN PLACE. PT'S ILEOSTOMY WAS LEAKING AND HAD SSUAN REPLACED. PT HAS A HEALING ADB ICISIONS AND REDNESS TO THE SACRUM. PT C/O OF PAIN WHICH WAS MANAGED BY PRN MEDS. MEDS WERE GIVEN PER EMAR ORDERS. PT DID NOT VERBALIZE ANY OTHER CONCERNS. FALL PRECAUTIONS IN PLACE. WILL CONTINUE TO MONITOR.
[2021-05-24 04:08] LABS: ALBUMIN 1.6 g/dL (3.4-5.0); CALCIUM 8.2 mg/dL (8.5-10.1); CREATININE 1.1 mg/dL (0.6-1.0); PHOSPHORUS 2.8 mg/dL (2.6-4.7); POTASSIUM 4.3 mmol/L (3.5-5.1)
[2021-05-24 07:26] VITALS: BP 148/77
[2021-05-24] MEDS ORDERED: METOPROLOL SUCC25 M1 PO (09:50)
[2021-05-24] MEDS ORDERED: ACETAMINOPHEN325 M1 PO (09:51)
[2021-05-24] MEDS ORDERED: MICAFUNGIN100 MG IVPB (09:52)
[2021-05-24] MEDS ORDERED: VANCOMYCIN1 GM/2002 IV (09:52)
[2021-05-24 11:15] VITALS: BP 121/77
[2021-05-24 11:29] LABS: HEMOGLOBIN 9.8 gm/dL (12.0-15.0); MCH 28.3 pg (26.0-34.0); MCHC 31.6 g/dL (28.0-37.0); MCV 89.4 fL (80.0-100.0); RBC 3.47 mil/uL (4.20-5.00); RDW 16.8 % (10.5-14.5); WBC 7.1 thou/uL (4.0-11.0)
--- NOTE | 2021-05-24 13:56 | NUR ---
CARE TEAM INDICATED THAT PT IS MEDICALLY STABLE TO DC BACK TO [facility] THIS DAY. CM FAXED ORDERS. CHART COPY MADE. NURSE GIVEN NUMBER FOR REPORT. STRETCHER VAN TRANSPORT ARRANGED FOR 1430. PT AND DTR ARE AWARE AND AGREEABLE. NO OTHER CM INTERVENTION INIDCATED. CASE CLOSED.
--- NOTE | 2021-05-24 14:38 | NUR ---
VAT CONSULTED FOR MIDLINE, DISCUSSED BENEFITS AND RISK WITH PT, VERBALIZED UNDERSTANDING. MEDS,HX,LABS REVIEWED. ISAI BRACHIAL WAS WIDELY PATENT WITH USG. 4FR POWER MIDLINE TRIMMED TO 17CM INSERTED TO 2CM EXTERNAL WITH BRISK BR. PT TOLERATED WELL. ML RELEASED FOR IMMEDIATE USE PER PROTOCOL TO RN
--- NOTE | 2021-05-24 15:37 | NUR ---
at 1445 pt was picked up by transportation; midline ok to use per iv team report attempted to be given, no answer; pt left facility in stable condition
== END 2021-05-24 16:27 | DRG 871 ==
LOC: ER 23:37 → ICU 05-18 01:37 → EROBS 05-18 01:37 → 4W 05-18 01:37 → EROBS 05-18 01:38 → ICU 05-18 03:32 → 4W 05-18 22:35 → ICU 05-19 09:35 → 4W 05-21 18:12
PROVIDERS: Emergency Medicine; Hospitalist; Nurse Practitioner; Nurse Practitioner Adult Health; Nurse Practitioner Family; Specialist; ADMIT Hospitalist; ATTEND Hospitalist
PROC: 0T9030Z Drainage of Right Kidney with Drainage Device, Percutaneous Approach (ICD-10-PCS; principal; 2021-05-19)
PROC: 02HV33Z Insertion of Infusion Device into Superior Vena Cava, Percutaneous Approach (ICD-10-PCS; principal; 2021-05-19)
DX: A41.02 Sepsis due to Methicillin resistant Staphylococcus aureus (principal); R65.21 Severe sepsis with septic shock; G92.8 Other toxic encephalopathy; E43 Unspecified severe protein-calorie malnutrition; N17.9 Acute kidney failure, unspecified; I48.21 Permanent atrial fibrillation; I42.9 Cardiomyopathy, unspecified; N39.0 Urinary tract infection, site not specified; K56.7 Ileus, unspecified; B37.89 Other sites of candidiasis; E87.5 Hyperkalemia; N18.9 Chronic kidney disease, unspecified; D64.9 Anemia, unspecified; G47.33 Obstructive sleep apnea (adult) (pediatric); N20.0 Calculus of kidney; Z20.822 Contact with and (suspected) exposure to COVID-19; E78.00 Pure hypercholesterolemia, unspecified; F41.9 Anxiety disorder, unspecified; F32.9 Major depressive disorder, single episode, unspecified; E66.01 Morbid (severe) obesity due to excess calories; N13.9 Obstructive and reflux uropathy, unspecified; E03.9 Hypothyroidism, unspecified; E78.5 Hyperlipidemia, unspecified; F34.1 Dysthymic disorder; R53.81 Other malaise; I12.9 Hypertensive chronic kidney disease with stage 1 through stage 4 chronic kidney disease, or unspecified chronic kidney disease; E11.22 Type 2 diabetes mellitus with diabetic chronic kidney disease; Z79.01 Long term (current) use of anticoagulants; Z90.49 Acquired absence of other specified parts of digestive tract; Z86.718 Personal history of other venous thrombosis and embolism; Z90.710 Acquired absence of both cervix and uterus; Z88.6 Allergy status to analgesic agent; Z68.39 Body mass index [BMI] 39.0-39.9, adult; Z82.49 Family history of ischemic heart disease and other diseases of the circulatory system; Z79.899 Other long term (current) drug therapy
CPT/HCPCS: 10045; 10078; 27000; 50455

== ENCOUNTER 2021-06-27 11:34 | Inpatient (IN) | payer OTHER ==
[~2021-06-27] VITALS: Ht 144.8 cm; Wt 79.4 kg
--- NOTE | ~2021-06-27 | EMS ---
[address] [address] EMS Patient Care Report Name: ROBERTO ORELLANA Room #: 435-P ADM IN M.R.#: [id number] Admission: 06/27/21 Attend Phys: Sandy Henderson Discharge: Date of : 49 Report #: [id number] THIS REPORT FOR: //name// Report Transmitted: 06/29/2021 10:04 EMS Care Summary [place], [place]/[facility] Incident [id number] @ 06/27/2021 10:38 Incident Location [address] [place] [address] Patient ROBERTO ORELLANA Female, 76 Years 1945 Patient Address [address] [place] [address] Patient History Other,Cardiac Arrythmia,Diabetes,Hypertension (HTN),Kidney/Renal Failure,Hyperlipidemia,Anxiety,Hypothyroidism, Patient Allergies Codeine,Intravenous Dye, Patient Medications Other, Chief Complaint WEAKNESS Disposition Transported No Lights/[place] Dispatch Reason Sick Person Transported To [facility] Narrative DISPATCHED TO A 76 Y/O FEMALE. UPON ARRIVAL, WE FOUND OUR PT LYING ON THE COUCH. PT NOTED INCREASED WEAKNESS SINCE THE SUNDAY PREVIOUS. PT NOTED BEING RELEASED FROM A CARE FACILITY THE WEEK PRIOR AND NOT DOING WELL SINCE. PT [address] [address] EMS Patient Care Report Name: ROBERTO ORELLANA Room #: 435-P [facility] IN M.R.#: [id number] Admission: 06/27/21 Attend Phys: Sandy Henderson Discharge: Date of : 49 Report #: [id number] WISHED TO BE SEEN AT AN ED. PT WAS LOG ROLLED ONTO A SOFT COT. PT WAS LIFTED X4 TO THE COT AND SECURED X3. IN THE AMBULANCE, VITALS WERE OBTAINED ALONG WITH 4-LEAD. DURING TRANSPORT, PT VOICED NO FURTHER COMPLAINTS OR CHANGES. AT [facility], REPORT WAS GIVEN TO RN. RN INFORMED EMS TO TAKE THE PT TO TRIAGE. PT WAS MOVED VIA DRAW SHEET TO A WHEELCHAIR AND SECURED VIA SEAT BELT. RN SIGNED FOR TRANSPORT. Initial Vitals @11:15P: 40,SpO2: 97, @11:25P: 194, @11:22P: 104,BP: 124/68,SpO2: 94, @11:02P: 46,SpO2: 100, @11:03P: 50,R: 14,BP: 131/90,Pain: 0/10,GCS: 15,SpO2: 97,Revised Trauma: 12, Assessments @10:49MENTAL:Place Oriented,Time Oriented,Event Oriented,Person Oriented,SKIN:HEENT:Head/Face: No Abnormalities,Neck/Airway: No Abnormalities,LUNG SOUNDS:General: Nausea,ABDOMEN:General: Nausea,PELVIS//GI:No Abnormalities,EXTREMITIES:Left Arm: No Abnormalities,Right Arm: No Abnormalities,Left Leg: No Abnormalities,Right Leg: No Abnormalities,PULSE:NEURO:Tremors,Weakness Right-Sided,Weakness Left-Sided, Impression Generalized Weakness Procedures @10:49 ALS Assessment Response: ImprovedSucceeded @11:02 3-Lead ECG Response: ImprovedPsychiatriceeded Timeline 10:37,Call Received 10:37,Dispatch Notified 10:38,Dispatched 10:39,En Route 10:47,On Scene 10:48,At Patient 10:49,ALS Assessment,Response: Improvedcced, 11:02,BP: / M,PULSE: 46,RR: R,SPO2: 100 Ox,ETCO2: ,BG: ,PAIN: ,GCS: , 11:02,3-Lead ECG,Response: ImprovedSucc, 11:03,BP: 131/90 M,PULSE: 50,RR: 14 R,SPO2: 97 Ox,ETCO2: ,BG: ,PAIN: 0,GCS: 15, 11:06,Depart Scene 11:15,BP: / M,PULSE: 40,RR: R,SPO2: 97 Ox,ETCO2: ,BG: ,PAIN: ,GCS: , 11:22,BP: 124/68 M,PULSE: 104,RR: R,SPO2: 94 Ox,ETCO2: ,BG: ,PAIN: ,GCS: , 11:25,At Destination 11:25,BP: / M,PULSE: 194,RR: R,SPO2: Ox,ETCO2: ,BG: ,PAIN: ,GCS: , [facility] [address] [place] [address] EMS Patient Care Report Name: ROBERTO ORELLANA BRAINNA Room #: 435-P [facility] IN M.R.#: [id number] Admission: 06/27/21 Attend Phys: Sandy Henderson Discharge: Date of : 49 Report #: [id number] 11:42,Call Closed Disclaimer v1.1 Copyright 2020 [employer] This EMS Care Summary contains data elements from the applicable legal record (which may be displayed differently). It is designed to provide pertinent information for the following purposes: continuity of care, clinical quality, and state data reporting. The complete legal record is available to ED staff and administrators of the receiving hospital in [employer]'s Patient Tracker. All data is provided "as is."
[~2021-06-27 11:34] MED LIST changes: +ACETAMINOPHEN325 M1 PO; +METOPROLOL SUCC25 M1 PO; +MICAFUNGIN100 MG IVPB; +VANCOMYCIN1 GM/2002 IV
[2021-06-27 12:16] VITALS: BP 129/85
--- NOTE | 2021-06-27 12:50 | NUR ---
LAB CALLED TO COLLECT BLOOD SPECIMENS.
[2021-06-27] MEDS ORDERED: ZOLOFT25 MG PO (13:05)
[2021-06-27] MEDS ORDERED: TRAMADOL 50 MG50 MG PO (13:05)
[2021-06-27 13:27] LABS: ABSOLUTE NEUTROPHILS 5.3 thou/uL (1.4-8.2); BASOPHILS 0.3 % (0.0-2.0); EOSINOPHILS 0.3 % (0.0-3.0); HEMATOCRIT 36.8 % (37.0-47.0); HEMOGLOBIN 12.1 gm/dL (12.0-15.0); LYMPHOCYTES 13.3 % (24.0-44.0); MCH 29.8 pg (26.0-34.0); MCHC 32.8 g/dL (28.0-37.0); MCV 90.8 fL (80.0-100.0); MONOCYTES 6.9 % (1.0-8.0); PLATELET COUNT 233 thou/uL (150-400); POLYS 79.2 % (36.0-66.0); RBC 4.05 mil/uL (4.20-5.00); WBC 6.6 thou/uL (4.0-11.0)
[2021-06-27 13:44] LABS: ALBUMIN 3.1 g/dL (3.4-5.0); CALCIUM 9.1 mg/dL (8.5-10.1); CREATININE 5.6 mg/dL (0.6-1.0); TOTAL BILIRUBIN 0.7 mg/dL (0.2-1.0)
[2021-06-27 13:52] LABS: ANISOCYTOSIS 1+; POIKILOCYTOSIS 1+
[2021-06-27 13:53] LABS: TEARDROPS 1+
[2021-06-27 15:45] LABS: URINE BILIRUBIN NEGATIVE (Negative); URINE BLOOD 3+ (Negative); URINE CLARITY CLOUDY; URINE COLOR YELLOW; URINE GLUCOSE-RANDOM* NEGATIVE (Negative); URINE KETONES NEGATIVE (Negative); URINE NITRITE-REFLEX NEGATIVE (Negative); URINE PROTEIN (DIPSTICK) 1+ (Negative); URINE SPECIFIC GRAVITY 1.025 (1.005-1.035); URINE UROBILINOGEN 0.2 E.U./dl (0.2-1.0)
[2021-06-27 15:47] LABS: URINE LEUKOCYTES-REFLEX 2+ (Negative)
[2021-06-27 16:04] LABS: SQUAMOUS >10 Many /LPF (0-3)
[2021-06-27 16:05] LABS: CASTS None Seen /LPF (None Seen); URINE WBC-REFLEX >25 Many /HPF (0-5)
[2021-06-27 16:07] LABS: BACTERIA-REFLEX >30 Many /HPF (None Seen)
[2021-06-27 16:08] LABS: CALCIUM OXALATE 4-10 Moderate /LPF (None Seen); YEAST-REFLEX Present (None Seen)
[2021-06-27 16:09] LABS: AMORPHOUS URATES Moderate /LPF (None Seen)
[2021-06-27 23:59] VITALS: BP 115/68
[2021-06-28 06:32] VITALS: BP 104/52
[2021-06-28 07:01] LABS: ALBUMIN 2.7 g/dL (3.4-5.0); CALCIUM 8.6 mg/dL (8.5-10.1); POTASSIUM 4.5 mmol/L (3.5-5.1)
[2021-06-28 07:07] LABS: CREATININE 4.6 mg/dL (0.6-1.0)
--- NOTE | 2021-06-28 10:23 | EKG ---
[facility] [place] [address] ELECTROCARDIOGRAM REPORT Name: ROBERTO ORELLANA Room #: 170-18 ADM IN M.R.#: [id number] Admission: 06/27/21 Attend Phys: Sandy Henderson Discharge: Date of : 49 Report #: [id number] [facility] ED Test Date: 2021-06-27 Test Time: 12:52:03 Pat Name: ROBERTO ORELLANA Department: Room: 170 Gender: F Care Management Assistant: ed : 1945 Requested By: Chela Castro Order Number: [id number] MD: Uday Cota Measurements Intervals [place] Rate: 109 P: 0 DC: 142 QRS: 146 QRSD: 95 T: -23 QT: 326 QTc: 440 Interpretive Statements AFIB Multiple premature complexes, vent & supraven Right axis deviation Low voltage, extremity and precordial leads Abnormal R-wave progression, late transition Compared to ECG 05/19/2021 09:09:42 Right-axis deviation now present Electronically Signed On 06-28-2021 10:23:10 SALES RECORD CLERK by Uday Cota [email or web address] <ELECTRONICALLY SIGNED> By: Uday Cota MD, FACC 06/28/21 1023 1252 1252 Uday Cota MD, [facility] /EPI
[2021-06-28 18:19] VITALS: BP 103/51
--- NOTE | 2021-06-28 18:56 | NUR ---
PT DISCHARGE TO 4S, PT SENT UP WITH EXECUTIVE SEARCH CONSULTANT ESCORT, NO COMPLAINTS OF PAIN FROM THE PT AT THE TIME OF THE DC. PT TODAY WAS TEARFUL FOR THE MOST PART, WAS OFTEN CALLING THE NURSE ASKING FOR PAIN MEDICATION AND WHEN PAIN MEDS WERE SUFFICIENT PT WENT TO SLEEP AND WOKE UP PERIODICALLY. R FLANK BACK PAIN STILL PERSISTS, ACETAMINOPHEN AND MORPHINE INTERCHANGINGLY AT 2 HOUR INTERVAL SEEMS TO BE THE MOST EFFECTIVE. PT ENJOYS EATING KOREAN SODA ICE CREAM, BUT EMOTIONAL LABILITY MADE PT CARE DIFFICULT AT TIMES. INTERVENTIONAL RADIOLOGY IS TO SEE THE PATIENT FOR R NEPHROSTOMY TUBE, AND SURGERY TO FOLLOW UP WITH ILEOSTOMY TUBE
[2021-06-28 19:46] VITALS: BP 115/54
--- NOTE | 2021-06-29 01:44 | NUR ---
PT ADMITTED TO ROOM 435 AT 1845 LAST EVENING VIA BED. PT ALERT AND ORIENTED X 4, TEARFUL AT TIMES. IV IN RIGHT CHEST INTACT AND PATENT. COLOSTOMY INTACT WITH LIQUID BROWN/YELLOW STOOL. COLOSTOMY LEAKED ALL OVER REQUIRING COMPLETE BED CHANGE. NEW COLOSTOMY BAG APPLIED. STOOL FOR C-DIFF SENT TO LAB. PT C/O NAUSEA. ZOFRAN GIVEN ORDERED. LEFT NEPHROSTOMY TUBE INTACT WITH SMALL AMT BLOOD-TINGED URINE. PT DENIES PAIN. BED ALARM ON FOR SAFETY. PT IN SPECIAL CONTACT ISOLATION PENDING C-DIFF RESULTS. PT APPEARS TO BE SLEEPING AT THIS TIME.
--- NOTE | 2021-06-29 06:21 | NUR ---
PT HAS ULCER ON COCCYX. PT IN A GREAT DEAL OF PAIN THIS MORNING. UNABLE TO TOLERATE PICTURE TAKING OF COCCYX. WILL REPORT TO DAY NURSE.
[2021-06-29 06:59] LABS: ALBUMIN 2.3 g/dL (3.4-5.0); CALCIUM 8.1 mg/dL (8.5-10.1); POTASSIUM 3.5 mmol/L (3.5-5.1)
[2021-06-29 07:00] VITALS: BP 111/61
[2021-06-29 07:07] LABS: CREATININE 3.2 mg/dL (0.6-1.0)
[2021-06-29 10:47] LABS: APTT 48.8 Seconds (24.5-32.8); INR 1.07; PROTIME 11.6 Seconds (10.5-12.1)
[2021-06-29 16:00] VITALS: BP 109/70
[2021-06-29 17:34] VITALS: BP 111/64
[2021-06-29 19:28] VITALS: BP 107/54
[2021-06-30 07:00] LABS: ALBUMIN 2.1 g/dL (3.4-5.0); CALCIUM 7.6 mg/dL (8.5-10.1); CREATININE 2.4 mg/dL (0.6-1.0); PHOSPHORUS 3.1 mg/dL (2.5-4.9)
[2021-06-30 07:10] VITALS: BP 112/62
--- NOTE | 2021-06-30 08:26 | NUR ---
ASSUMED CARE AT 1900, PT LAYING COMFORTABLY IN BED, REPORTS NAUSEATED AND LOWER BACK PAIN, REQUESTED FOR THE PRN MEDICATUION, ADMINSTERED PER REQUEST NO ADVERSE RECTION NOTED, REMAINS NPO, COMPLIANT TO CARES, SLEPT THROUGH THE NIGHT WILL CONTINUE TO MONITOR.
--- NOTE | 2021-06-30 10:35 | HC ---
[facility] [address] [place] [address] CONSULTATION Name: ROBERTO ORELLANA Room #: 435-P ADM IN M.R.#: [id number] Admission: 06/27/21 Attend Phys: Sandy Henderson Discharge: Date of : 49 Report #: [id number] THIS REPORT FOR: cc: Bryant Sprague MD, Rene P. MD Barry, Joseph W. MD ~ DATE OF SERVICE: 06/29/2021 INFECTIOUS DISEASE CONSULTATION ATTENDING PHYSICIAN: Dr. Henderson. REASON FOR EVALUATION: Complicated genitourinary tract infection with obstructive uropathy due to multiply resistant Acinetobacter. HISTORY OF PRESENT ILLNESS: Chart reviewed and the patient examined. 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 She is getting repeated urinary tract infections. She was quite sick at that point and had gram-positive septicemia and renal failure. It is notable she has a right sided nephrostomy tube. She has end ileostomy as well. At that point, had a growth of Staphylococcus epidermidis that was MRSE, also had aspiration of the urine with growth of Lauren glabrata. She was treated with combination therapy on discharge, vancomycin to complete a 2-to 3-week course total as well as initially on micafungin. She [facility], went home, and became progressively weak in the course of last couple of weeks. She was unable to eat due to refractory emesis. Due to concern, she was returned to the Emergency Room, was found to have a creatinine of 5.6. In May, her creatinine was 1.1 on discharge. Subsequently, with hydration and resuscitative measures, creatinine today is 3.2. Initial urinalysis showed marked pyuria and bacteriuria as well as evidence of yeast. Initial reports, blood culture has greater than 10 to 5th gram-negative rods with Acinetobacter that is highly resistant, intermediate to Unasyn and minocycline. Coronavirus testing was negative. A renal ultrasound noted moderate atrophy of the right renal parenchyma with a staghorn calculus. This has been known. There was no significant left renal calculi. There was some cortical thickness. CT of the abdomen and pelvis showed fluid collection in the subcutaneous fat on the large pannus, large staghorn type calculus seen again in the right kidney, unchanged right perinephric fat stranding. C. diff testing was negative. She notes that she has ongoing pain and discomfort. She has been afebrile. ALLERGIES: CODEINE. CURRENT MEDICATIONS: Include Unasyn 3 grams b.i.d., levothyroxine, sertraline, metoprolol, morphine, acetaminophen, zolpidem, ondansetron, metronidazole, [address] [address] CONSULTATION Name: ROBERTO ORELLANA Room #: 435-P [facility] IN M.R.#: [id number] Admission: 06/27/21 Attend Phys: Sandy Henderson Discharge: Date of : 49 Report #: [id number] cefepime have been started and were discontinued. PAST MEDICAL HISTORY: Hypertension, elevated cholesterol, sleep apnea, diabetes mellitus, chronic recurrent urolithiasis with a right sided staghorn calculus, recurrent urinary tract infections, previous small-bowel obstruction with lysis of adhesions, now has ileostomy, anxiety, depression, anemia, morbid obesity, malnutrition. SOCIAL AND FAMILY HISTORY: Available in chart. REVIEW OF SYSTEMS: Otherwise, unremarkable with the exception noted above. PHYSICAL EXAMINATION: GENERAL: She appears chronically ill and undernourished. She is mildly encephalopathic, anxious. VITAL SIGNS: Temperature 98.4, pulse 95, respirations 16, blood pressure 111/64. SKIN: Warm, dry, no rashes. HEENT: Normocephalic. Extraocular muscles intact. NECK: Supple. LUNGS: Diminished breath sounds. Few scattered crackles at the bases. HEART: Borderline tachycardic, regular. Soft systolic murmur. ABDOMEN: Tenderness bilaterally. No overt peritoneal signs. GENITOURINARY AND RECTAL: Deferred. LABORATORY DATA: As described above, C. diff negative. Urine culture with growth of greater than 10 to 5th Acinetobacter, multiply resistant, only intermediate susceptible to minocycline and Unasyn on standard susceptibilities. Most recent electrolytes, sodium 146, potassium 3.5, chloride 113, bicarbonate 17, anion gap of 16, BUN and creatinine 67 and 3.2, that is down from 5.6, albumin of 3.7, total protein 7.0. CBC: White count of 6.6, H and H 12.1 and 36.8, platelets of 233. ASSESSMENT AND PLAN: Complicated urinary tract infection in setting of obstructive uropathy with clinical features of sepsis as well as multiorgan dysfunction. We will continue the Unasyn. Difficult to ascertain if we can keep her free of infection in the interim prior to more definitive treatment on the staghorn calculus, is quite tenuous at best. Await further recommendations. Monitor expectantly. At risk for additional complications. <ELECTRONICALLY SIGNED> By: Raul Lagos MD 06/30/21 1035 1412 0032 Raul Lagos MD /nt
--- NOTE | 2021-06-30 11:01 | NUR ---
Out of room for procedure. Spoke daughter maritza [phone]. Intro to cm and dcp. maribel lives alone, been dealing with his since apr, been to [facility] and will not go back. Has [employer] private duty m-f from 04-04. [facility] and nurse for wound care also. and daughter maritza lives next door and can provide support as well. Has DME at home. education on 5n consult and maritza agreed with dcp. Will cont following as needed.
--- NOTE | 2021-06-30 12:28 | NUR ---
ASSUMED PT CARE THIS AM. PT C/O OF PAIN AND NAUSEA THIS AM AND GIVEN NAUSEA AND PAIN MEDICATION PER PT REQUEST. IR CALLED ME REGARDING UROLOGY DR TO EDUCATED PT ABOUT NEPHROSTOMY PROCEDURE. CALLED UROLOGY DR AND INFORMED IR CONCERNED. UROLOGY DR WAS AT THE BEDSIDE AND EDUCATING PT. PT HAS BEEN NPO SINCE MIDNIGHT. PT IS ON ROOM AIR. INFORMED HOSPITALIST THAT PT C DIFF RESULT WAS NEGATIVE AND DC ISOLATION CART. PT HAS COLOSTOMY. PT IS CURRENTLY HAVING IR NEPHROSTOMY EXCHANGE RIGHT NOW.
[2021-06-30 15:49] VITALS: BP 148/75
[2021-06-30 15:55] VITALS: BP 140/81
[2021-06-30 20:00] VITALS: BP 143/52
--- NOTE | 2021-07-01 04:05 | NUR ---
assumed care approx 1900 evening 06/30. pt alert and oriented x4, pleasant and cooperative. pt c/o intermittent nausea and pain. pt given Zofran IV and Morphine IV as ordered. pt reported relief however pt not able to tolerate full dose of Sodium Bicarbonate IV Push as she started vomiting shortly after dose given. pt given 30meq of dose and stated she couldn't tolerate any more. pt also given Zolpidem as ordered. colostomy emptied and intact and nephrostomy intact. bed alarm on and call light in reach. will continue to monitor.
[2021-07-01 07:50] VITALS: BP 131/79
[2021-07-01 08:59] LABS: ALBUMIN 2.1 g/dL (3.4-5.0); CALCIUM 7.8 mg/dL (8.5-10.1); CREATININE 2.1 mg/dL (0.6-1.0); PHOSPHORUS 2.3 mg/dL (2.5-4.9); POTASSIUM 3.3 mmol/L (3.5-5.1)
[2021-07-01 09:51] LABS: ABSOLUTE NEUTROPHILS 3.4 thou/uL (1.4-8.2); BASOPHILS 0.6 % (0.0-2.0); EOSINOPHILS 3.1 % (0.0-3.0); HEMATOCRIT 30.3 % (37.0-47.0); HEMOGLOBIN 9.6 gm/dL (12.0-15.0); LYMPHOCYTES 22.8 % (24.0-44.0); MCH 29.8 pg (26.0-34.0); MCHC 31.8 g/dL (28.0-37.0); MCV 93.6 fL (80.0-100.0); MONOCYTES 8.8 % (1.0-8.0); PLATELET COUNT 160 thou/uL (150-400); POLYS 64.7 % (36.0-66.0); RBC 3.23 mil/uL (4.20-5.00); RDW 19.3 % (10.5-14.5); WBC 5.2 thou/uL (4.0-11.0)
[2021-07-01 09:53] LABS: CALCIUM 7.8 mg/dL (8.5-10.1); CREATININE 2.2 mg/dL (0.6-1.0); POTASSIUM 3.3 mmol/L (3.5-5.1)
[2021-07-01 10:49] LABS: ANISOCYTOSIS SLIGHT; POIKILOCYTOSIS SLIGHT
--- NOTE | 2021-07-01 10:49 | NUR ---
Pt has had poor oral intake >1 week with persistant nausea. May want to consider clininix PPN if ok with renal
[2021-07-01 13:03] LABS: URINE BILIRUBIN NEGATIVE (Negative); URINE BLOOD 2+ (Negative); URINE CLARITY SL CLOUDY; URINE COLOR YELLOW; URINE GLUCOSE-RANDOM* NEGATIVE (Negative); URINE KETONES NEGATIVE (Negative); URINE NITRITE-REFLEX NEGATIVE (Negative); URINE PROTEIN (DIPSTICK) NEGATIVE (Negative); URINE UROBILINOGEN 0.2 E.U./dl (0.2-1.0)
[2021-07-01 13:05] LABS: URINE LEUKOCYTES-REFLEX 2+ (Negative)
[2021-07-01 13:34] LABS: SQUAMOUS 0-3 Few /LPF (0-3)
[2021-07-01 13:35] LABS: BACTERIA-REFLEX >30 Many /HPF (None Seen); CASTS None Seen /LPF (None Seen); URINE RBC 3-10 Few /HPF (NONE SEEN); YEAST-REFLEX Present (None Seen)
[2021-07-01 13:41] LABS: CRYSTALS None Seen /LPF (None Seen)
[2021-07-01 16:30] VITALS: BP 97/57
--- NOTE | 2021-07-01 17:51 | NUR ---
ASSUMED CARE OF PT AT 0700. PT A&OX4. PT DENIES PAIN AND N/V AT THIS TIME. VS CHARTED. NEPHROSTOMY, ILIOSTOMY AND CATHETER DRAINING. UA SENT DOWN. IV PAIN MEDS AND ANTIEMIIC GIVEN Q4. WILL CONTNIUE TO MONITOR.
[2021-07-01 19:50] VITALS: BP 100/38
--- NOTE | 2021-07-02 04:36 | NUR ---
RECEIVED CARE OF THIS PATIENT AT 1900. PATIENT ALERT AND ORIENTED X4. HAS NEPHROSTOMY TUBE, ILEOSTOMY, AND A CHAVARRIA, ALL PATENT. REMAINS ON BEDREST FOR THIS SHIFT. C-DIFF NEG, REMOVED FROM ISO. IV PATENT IN R CHEST WITH FLUIDS INFUSING. C/O PAIN AND NAUSEA WITH DRY HEAVES, MEDS GIVEN FOR BOTH. SLEPT MOST OF NIGHT.
[2021-07-02 05:38] LABS: HEMATOCRIT 30.8 % (37.0-47.0); MCH 30.2 pg (26.0-34.0); MCHC 32.4 g/dL (28.0-37.0); MCV 93.2 fL (80.0-100.0); RBC 3.3 mil/uL (4.20-5.00); RDW 19.2 % (10.5-14.5); WBC 4.3 thou/uL (4.0-11.0)
[2021-07-02 06:01] LABS: CALCIUM 7.7 mg/dL (8.5-10.1); CREATININE 1.9 mg/dL (0.6-1.0); PHOSPHORUS 2.4 mg/dL (2.5-4.9); POTASSIUM 3.4 mmol/L (3.5-5.1)
[2021-07-02 09:13] VITALS: BP 104/56
--- NOTE | 2021-07-02 13:44 | NUR ---
ASSUMED PT CARE THIS AM. REMOVED IV ON R CHEST DUE TO INFILTRATION. CALLED IV TEAM TO PLACED IV. PT HAS IV SITE ON R UA 20 GAUGE RUNNING NS @100ML/HR. PT IS ON ROOM AIR. PT C/O OF NAUSEA AND PAIN. GIVEN NAUSEA AND PAIN MEDICATION PER PT REQUEST. PT HAS COLOSTOMY AND NEPHROSTOMY. PT IS ON SPECIAL PRECATION DUE TO MMDRO. WILL CONTINUE TO MONITOR PT. FOLLOW POC.
[2021-07-02 16:15] VITALS: BP 90/50
[2021-07-02 21:40] VITALS: BP 124/70
--- NOTE | 2021-07-03 | NUR ---
PT PROGRESSING TOWARDS D/C GOALS. VSS AFEBRILW 98% ON RA. MEDICATED FOR NAUSEA, PAIN AND SLEEP. PT NOW SLEEPING QIOETLY . NO S/S PAIN OR NAUSEA. ILOSTOMY DRAINING LIGHT BROWN STOOL.
[2021-07-03 05:00] VITALS: BP 106/61
[2021-07-03 07:15] VITALS: BP 119/53
[2021-07-03 07:15] LABS: ALBUMIN 1.9 g/dL (3.4-5.0); CALCIUM 7.4 mg/dL (8.5-10.1); CREATININE 1.6 mg/dL (0.6-1.0); PHOSPHORUS 2.3 mg/dL (2.6-4.7); POTASSIUM 3.4 mmol/L (3.5-5.1)
--- NOTE | 2021-07-03 08:37 | NUR ---
PT ANXIOUS THIS AM AT END OF SALES CONSULTING DIRECTOR. ZOFRAN GIVEN FOR NAUSEA. MORPHINE GIVEN FOR BACK PAIN NEAR NEPHROSTOMY SITE. WOUND CARE DONE AND FOAM DRESSINGS APPLIED. PT IS CALMER NOW AND IN BETTER NOOD. NOTIFED DAY SHIFT NS NEPHROSTOMY NOT PUTTING OUT URINE AND TO MENTION TO DR UPON ROUNDS. PT STATED IT HAD STOPPED DAYS AGO.
[2021-07-03 09:30] VITALS: BP 119/53
[2021-07-03 15:40] VITALS: BP 136/69
[2021-07-03 17:37] VITALS: BP 136/69
--- NOTE | 2021-07-03 19:21 | NUR ---
PATIENT RESTING IN BED, PAIN MEDICATION AND ZOFRAN GIVEN PRN. NO OUTPUT FROM NEPHROSTOMY TUBE. PATIENT DOES NOT EATING MUCH DUE TO NAUSEATE. CALL LIGHT WITHIN REACH, WILL CONTINOUS MONITORING.
[2021-07-03 19:38] VITALS: BP 122/64
--- NOTE | 2021-07-04 07:22 | NUR ---
ASSUMED CARE FO PT AROUND 1900. PT IS A&O X4 AND ABLE TO EXPRESS NEEDS. R. FLANK PAIN MANGED WITH PRN MEDS, MILD NAUSEA OVERNIGHT, RESPONDED WELL TO PRN TREATMENT. NO OUTPUT THROUGH NEPHROSTOMY THIS SHIFT. CHAVARRIA PRESENT WITH APPROPRIATE OUTPUT. OSTOMY DRAINING CLEAR LIQUID. PT EDUCATED ON THE IMPORTANCE OF REPOSITIONING, PAIN MANAGEMENT, AND THE GENERAL PLAN OF CARE. VVS. NO ACUTE EVENTS AT THIS TIME
[2021-07-04 07:41] VITALS: BP 125/60
--- NOTE | 2021-07-04 13:33 | NUR ---
ASSUMED CARE OF PT AT 0700 THIS MORNING. PT IS A/OX4 AND HAS BEEN DEPRESSED AND HAS NOT BEEN IN GOOD SPIRITS. PT HAS HAD SEVERAL ATTEMPTS TO CORRECT NEPHROTOMY WITHIOUT SUCCESS. PT STATED HER RT KIDNEY IS NOT WORKING AT ALL. NO FLUID IN NEPHROTOMY TUBE. ASSESSMENTS NOTED IN CHART AND OTHERWISE UNREMARKABLE. FALL PRECAUTIONS ARE IN PLACE. CALL LIGHT AND OTHER NEEDS ARE IN REACH. MEDS AND TX GIVEN NEEDED AND SCHEDULED. WILL MONITOR AND NOTE ANY CHANGES.
--- NOTE | 2021-07-04 13:44 | NUR ---
Pt with severe protein calorie malnutrition and eating negligible amounts of food. Obtained some food preferences. Would recommend clinimix PPN for added nutrition and consider appetite stimulant. Noted psych consulted.
[2021-07-04 16:00] VITALS: BP 138/63
[2021-07-04 16:19] VITALS: BP 138/63
[2021-07-04 19:16] VITALS: BP 131/66
--- NOTE | 2021-07-05 03:06 | NUR ---
PT ASSESSMENT COMPLETED AND VSS. MEDS GIVEN ORDERED AND WELL TOLERATED. FALL PRECAUTIONS IN PLACE. OSTOMY/NEPHROSTOMY/CHAVARRIA IN PLACE. CHAVARRIA DRAINING LARGE AMOUNT OF CLOUDY URINE. OSTOMY WITH LARGE AMOUNT OF LIQUID [place] FLUID. PRN PAIN AND NAUSEA MEDICATION WORKING WELL. SLEEP MEDICATION WORKING AND PT SLEEPING WELL. WILL CONTINUE TO MONITOR FREQUENTLY.
[2021-07-05 07:36] VITALS: BP 115/64
[2021-07-05 07:46] LABS: ALBUMIN 1.6 g/dL (3.4-5.0); CALCIUM 7.2 mg/dL (8.5-10.1); CREATININE 1.2 mg/dL (0.6-1.0); PHOSPHORUS 2.2 mg/dL (2.5-4.9); POTASSIUM 3.2 mmol/L (3.5-5.1)
--- NOTE | 2021-07-05 11:10 | NUR ---
WOUND CONSULT; THE PATIENT HAS A STAGE 3 PRESSURE INJURY TO THE COCCYX. NO ESHAR. SEROSANGINOUS DRAINAGE. CURRENTLY USING A FOAM DRESSING. NO S/S OF INFECTION. RECOMMENDATION; -Q2H TURNING -LOW AIRLOSS BED PUMP -APPLY A SACRAL FOAM DRESSING, CHANGE M/W/F PRN DISCUSSED WITH ABIGAIL
[2021-07-05 18:11] VITALS: BP 125/48
--- NOTE | 2021-07-05 20:29 | NUR ---
PATIENT RESTING IN BED, PAIN MED AND NAUSEATE GIVEN PRN. CALL LIGHT WITHIN REACH, WILL CONTINOUS MONITORING.
[2021-07-05 22:53] VITALS: BP 107/55
--- NOTE | 2021-07-06 05:44 | NUR ---
PT A&O x 4. PT EDUCATED ON TURNING AND SKIN CONTROL BREAKDOWN. PLACES ON AIR FLUIDIZER MATRESS THIS SHIFT. Q2 TURNS AND OFFLOADING ENCOURAGED. PERICARE PROVIDED, PT REPORTS IT HAS NOT BEEN DONE YET THIS ADMISSION. WOUND PRESENT BUTTOM- WOUND CLEANED WITH SALINE AND NEW FOAM PLACED. WOUND APPEARS TO BE TUNNELING, SLOUGH AND ESCAR PRESENT IN WOUND BED. FOLWY IN PLACE, GOOD OUTPUT THIS SHIFT. R. NEPHRO TUBE PRESENT- NO DRAINAGE IN BAG THIS SHIFT. VVS. NO ACUTE EVENTS. WILL CONTINUE TO FOLLOW PLAN OF CARE PT IS WILLING
--- NOTE | 2021-07-06 07:54 | NUR ---
0729 report completed by crutch maker nurse. pt in bed, eyes closed, normal rise and fall of chest seen. no respiratory distress noted at this time. bed alarm on.
[2021-07-06 09:15] VITALS: BP 141/72
--- NOTE | 2021-07-06 13:20 | NUR ---
patient is not a candidate for acute rehab. Sp with patient regarding post acute care. They do not want to return to [facility]. Sp with patient and dtr. Patient has new health insurance first of year [employer] Medicare Advantage ID# [id number] [facility]# [id number]. Printed [employer] list of skilled providers and left in room. Dtr to be present today to visit.
[2021-07-06 20:49] VITALS: BP 114/47
[2021-07-07 08:29] VITALS: BP 138/60
[2021-07-07 09:18] VITALS: BP 138/60
--- NOTE | 2021-07-07 10:02 | NUR ---
WOUND CARE F/U; UPON ASSESSMENT TODAY I DESCOVERED A MECHANICAL PRESSURE INJURY RELATED TO LYING ON THE UROSTOMY TUBE. THE WOUND IS LINIAR APPROX 3 X 0.5 X 0.3. NO S/S OF INFECTION. THIS FINDIN WAS REPORTED TO DR PRESTON WHO THEN ORDERED A CONSULT BY DR CASTELLANOS FOR THE COCCYX WOUND THAT NEEDS DEBRIDEMENT. NO S/S OF INFECTION SEEN. RECOMMENDATIONS; -CONSULT WOUND CARE PHYSICIAN -APPLY ZGUARD TO RIGHT HIP, COVER WITH A FOAM DRESSING. DISCUSSED WITH HOSPITALIST AND RN.
[2021-07-07 22:08] VITALS: BP 876/53
[2021-07-08] VITALS: BP 109/45
[2021-07-08 03:58] LABS: HEMATOCRIT 27.8 % (37.0-47.0); HEMOGLOBIN 8.9 gm/dL (12.0-15.0); MCH 30.3 pg (26.0-34.0); MCHC 32.2 g/dL (28.0-37.0); MCV 93.9 fL (80.0-100.0); RBC 2.96 mil/uL (4.20-5.00); RDW 19.1 % (10.5-14.5); WBC 3.9 thou/uL (4.0-11.0)
[2021-07-08 04:42] LABS: URINE BILIRUBIN NEGATIVE (Negative); URINE BLOOD 2+ (Negative); URINE CLARITY CLOUDY; URINE COLOR YELLOW; URINE GLUCOSE-RANDOM* NEGATIVE (Negative); URINE KETONES NEGATIVE (Negative); URINE NITRITE-REFLEX NEGATIVE (Negative); URINE PROTEIN (DIPSTICK) NEGATIVE (Negative); URINE SPECIFIC GRAVITY 1.025 (1.005-1.035); URINE UROBILINOGEN 0.2 E.U./dl (0.2-1.0)
[2021-07-08 04:48] LABS: URINE LEUKOCYTES-REFLEX 2+ (Negative)
[2021-07-08 04:56] LABS: SQUAMOUS 4-10 Moderate /LPF (0-3)
[2021-07-08 04:57] LABS: ALBUMIN 1.7 g/dL (3.4-5.0); CREATININE 1.1 mg/dL (0.6-1.0); PHOSPHORUS 2.2 mg/dL (2.5-4.9)
[2021-07-08 04:57] LABS: CASTS None Seen /LPF (None Seen); URINE WBC-REFLEX >25 Many /HPF (0-5)
[2021-07-08 04:58] LABS: CRYSTALS None Seen /LPF (None Seen); YEAST-REFLEX Present (None Seen)
[2021-07-08 05:18] LABS: POTASSIUM 2.9 mmol/L (3.5-5.1)
[2021-07-08 07:25] VITALS: BP 108/58
--- NOTE | 2021-07-08 09:59 | NUR ---
A/O X 4. ROOM AIR. BEDBOUND. RIGHT UPPER ARM PIV SALINE LOCKED. CHAVARRIA IN PLACE YELLOW URINE NOTED IN DRAINAGE, NEPHROSTOMY TUBE RIGHT BACK, COLOSTOMY LEFT ABD DARK GREEN LIQUID STOOL NOTED,WOUND ON BUTTOCK WANTS TO WAIT TILL LATER FOR WOUND CARE TO BE COMPLETED, OXYCODONE GIVEN AND ZOFRAN FOR NAUSEA, AMPICILLIN TOLERATED WELL.
--- NOTE | 2021-07-08 14:15 | HC ---
[facility] [address] [place] [address] CONSULTATION Name: ROBERTO ORELLANA Room #: 435-P ADM IN M.R.#: [id number] Admission: 06/27/21 Attend Phys: Sandy Henderson Discharge: Date of : 49 Report #: [id number] THIS REPORT FOR: cc: Bryant Sprague MD, Rene P. MD Stephens, Thad A. MD ~ DATE OF SERVICE: 07/07/2021 WOUND CARE CONSULTATION PERSONAL PHYSICIAN: Dr. Bryant Sprague. CHIEF COMPLAINT: Coccygeal and gluteal decubitus ulcers. HISTORY OF PRESENT ILLNESS: This is a 76-year-old white female who is status post small-bowel obstruction several weeks ago, which required an ileostomy. The patient states during that timeframe, she developed decubitus ulcer in her coccygeal region. The patient states that she was then sent to rehab where she feels that very little was done for that even despite the fact it was causing her significant pain. The patient states that since she has been in the hospital for the past several days ____ foam dressing over the wound, but has been minimally effective to help in her pain. The patient now has been hospitalized for a staghorn calculus in the right kidney, requiring nephrostomy tube, which has now been placed. The hospital wound care nurse had initially been seen the patient and felt that the ulceration was not improving and the hospitalist then requested a facial wound care consult, which happened today. PAST MEDICAL HISTORY: Significant for hypertension, hypercholesterolemia, sleep apnea, non-insulin dependent diabetes, previous appendectomy, hysterectomy, cholecystectomy with recent history of small bowel obstructions that requiring ileostomy, chronic AFib and the right staghorn calculus of the kidney, requiring nephrostomy tube, status post gastric sleeve placement. CURRENT MEDICATIONS: Multiple, reviewed the patient's medication list. DRUG ALLERGIES: CODEINE. SOCIAL HISTORY: The patient prior to all this had been living independently; however, now has been in a rehab facility. FAMILY HISTORY: Not pertinent to current medical condition. REVIEW OF SYSTEMS: CONSTITUTIONAL: The patient denies fevers or chills. NEUROLOGIC: The patient complains of overall generalized weakness, but no isolated weakness in arms or legs. [address] [address] CONSULTATION Name: ROBERTO ORELLANA [facility] Room #: 435-P [facility] IN M.R.#: [id number] Admission: 06/27/21 Attend Phys: Sandy Henderson Discharge: Date of : 47 Report #: [id number] EYES: No complaints. EARS, NOSE AND THROAT: No complaints. CARDIAC: The patient denies chest pain, palpitations or peripheral edema. RESPIRATORY: The patient denies shortness of breath, cough or wheeze. GASTROINTESTINAL: The patient complains of mild nausea, but no vomiting. The patient has ileostomy in place. GENITOURINARY: The patient denies urgency or frequency. MUSCULOSKELETAL: No complaints. SKIN: There are decubitus ulcers in this coccyx and right gluteal region. PHYSICAL EXAMINATION: VITAL SIGNS: Stable. The patient is afebrile. GENERAL: This is an awake and alert and anxious appearing white female who is crying during the exam secondary to pain. HEENT: Normocephalic, atraumatic. Mucous membranes are dry. Pupils are round. Sclerae white. NECK: Supple without JVD. LUNGS: Clear. HEART: Regular. ABDOMEN: Obese, soft, nontender. Ileostomy is in place and functioning. BACK: Evaluation of the back reveals a nephrostomy tube in the right what appears to be going to the right flank and functioning. Foam dressing is placed around in this coccygeal region. There is a stage III decubitus ulcer, which is approximately 70% granulation tissue, 30% slough. There is no significant undermining or tunneling. There is no palpable bone. Rashida-wounds are somewhat erythematous and mildly macerated. The right gluteal region is also a small stage III decubitus ulcer, which is fairly superficial nearly 100% granulated, but no tunneling, tracking or undermining. EXTREMITIES: The patient moves all extremities without difficulty. NEUROLOGIC: Cranial nerves II-XII grossly intact. Motor and sensory are grossly intact. LABORATORY DATA: White count 4.3, hemoglobin 10.0, BUN 11, creatinine 1.2, albumin 1.6. IMPRESSION: 1. Stage III decubitus ulcer to the coccyx and stage III decubitus ulcer of the right gluteal region. 2. Dehydration with acute kidney injury on top of chronic kidney disease and obstructive uropathy with right-sided staghorn calculus, requiring nephrostomy tube. 3. Severe depression. 4. Atrial fibrillation. 5. Hypertension. 6. Hyperlipidemia. [facility] [address] [place] [address] CONSULTATION Name: ROBERTO ORELLANA Room #: 435-P [facility] IN M.R.#: [id number] Admission: 06/27/21 Attend Phys: Sandy Henderson Discharge: Date of : 49 Report #: [id number] 7. History of recent small-bowel obstruction, requiring ileostomy. 8. Generalized debility. 9. Severe protein-calorie malnutrition with albumin 1.6. PLAN: At this time, we will start morphine and Silvadene cream and cover this with Xeroform and sacral foam twice daily and p.r.n. I did not feel both the coccygeal and the right gluteal decubitus ulcer did not feel there is any surgical debridement needed at this time. We will make sure the patient is on low air loss surface, have her to be turned every 2 hours and offload the areas. Nephrostomy tube once again is in place and being followed by Urology and Nephrology. Psychiatry has been evaluated and consulted for severe depression. Ileostomy appears to be functioning well. We will continue to maximize the patient's oral protein supplementation for healing. We will utilize physical and occupational therapy for strengthening. We will continue all other current medications. Appreciate ability to consult. <ELECTRONICALLY SIGNED> By: Rigoberto Braga MD 07/08/21 1415 1312 1900 Rigoberto Braga MD /stanley
--- NOTE | 2021-07-08 14:50 | NUR ---
Spoke with dtr who wanted referral to [facility] however they are closed to admissions only accepting own residents. Dtr to review the list. She reports at [facility] they were not taking care of ostomy. Bag would leak all on patient. No hand maintenance team leader outside of room dispensers never refilled. Therefor comcern if staff sanitizing. Patient would be left in bed most of day. Patient knew Kidney infection returned and wheeled herself to nurses station to call 911. Do not want to return. Dtr to review list and call casemgt with options
[2021-07-08 16:19] VITALS: BP 142/80
[2021-07-08 21:04] VITALS: BP 102/57
--- NOTE | 2021-07-09 04:38 | NUR ---
PATIENT AOX4 MAKES NEEDS KNOWN. RIGHT GLUEAL AND COCCXY DRESSING ARE C/D/I. PATIENT ENCOURAGED FLUIDS. PATIENT TURNED Q 2 HOURS NEEDED.PAIN CONTROLLED THIS SHIFT. FALL PRECATION IN PLACE. PATIENT IN BED ASLEEP AT THIS TIME BREATHING REGULAR AND UNLABOURED.
[2021-07-09 06:31] LABS: ALBUMIN 1.8 g/dL (3.4-5.0); CALCIUM 7.5 mg/dL (8.5-10.1); CREATININE 1.3 mg/dL (0.6-1.0); POTASSIUM 3.8 mmol/L (3.5-5.1)
[2021-07-09 07:20] VITALS: BP 106/60
[2021-07-09 11:46] VITALS: BP 106/60
[2021-07-09 16:12] VITALS: BP 97/52
--- NOTE | 2021-07-09 17:35 | NUR ---
patient resting in bed, pain med and nausea medication given prn, call light within reach, will continous monitoring.
[2021-07-09 19:22] VITALS: BP 105/45
--- NOTE | 2021-07-10 04:18 | NUR ---
RECEIVED CARE OF PATIENT AT 1900. PATIENT ALERT AND ORIENTED X4. REMAINS ON BEDREST. HAS ILEOSTOMY, NEPHROSTOMY AND CHAVARRIA. IN ISO FOR STREP IN URINE. C/O PAIN, MED GIVEN. DRESSINGS ON COCCYS AND R GLUTE CHANGED. SLEPT MOST OF NIGHT.
[2021-07-10 07:36] VITALS: BP 105/50
[2021-07-10 10:00] VITALS: BP 105/50
[2021-07-10 15:21] VITALS: BP 86/52
[2021-07-10 15:53] VITALS: BP 92/38
[2021-07-10 19:26] VITALS: BP 108/66
--- NOTE | 2021-07-11 05:55 | NUR ---
PT HAS RESTED OVER NIGHT. PT HAS REFUSED TURN THIS SHIFT STATING SHE "SHIFTED". EDUCATION PROVIDED. WOUND CARE PROVIDED PER ORDERS. WOUND APPEARS WORSE THAN PREVIOUS SHIFTS. CHAVARRIA IN PLACE- MODERATE OUTPUT. NO OUTPUT THROUGH NEPHROSTOMY TUBE. SEE OTHER CHARTING FOR DETAILS
[2021-07-11 07:55] VITALS: BP 93/532
[2021-07-11 08:09] VITALS: BP 93/53
--- NOTE | 2021-07-11 12:22 | NUR ---
spoke with patient and dtr. referral to [facility] for skilled care. Patient questioning if plans for sx in near future.
[2021-07-11 15:47] VITALS: BP 109/54
--- NOTE | 2021-07-11 19:36 | NUR ---
Patient resting in bed comfortablely, pain med and nausea medication given prn, call light within reach, will continous monitoring.
[2021-07-11 19:38] VITALS: BP 96/44
[2021-07-12 08:00] VITALS: BP 124/60
--- NOTE | 2021-07-12 09:50 | NUR ---
PATIENT ASLEEP UPON ENTERING ROOM. ON CONTACT ISO. WOKE TO HER NAME. A/O X 4. ROOM AIR. BEDBOUND. RIGTH UPPER ARM PIV SALINE LOCKED-FLUSHED 10 MLS NS, PATENT, NO PAIN NOTED. CHAVARRIA IN PLACE, OSTOMY MID ABD-DARK GREEN LIQUID STOOL NOTED IN BAG, RIGHT NEPHROSTOMY TUBE EMPTY. WOUND ON UPPER BUTTOCK-MORPHINE CREAM, FOAMS APPILED. OXYCODONE 10 MG AND ZOFRAN GIVEN PRN PER REQUEST FROM NANCY. PAIN 7/10 BUTTOCKS.
[2021-07-12 10:44] LABS: ABSOLUTE NEUTROPHILS 2.4 thou/uL (1.4-8.2); EOSINOPHILS 3.4 % (0.0-3.0); HEMATOCRIT 33.4 % (37.0-47.0); HEMOGLOBIN 10.6 gm/dL (12.0-15.0); LYMPHOCYTES 26.6 % (24.0-44.0); MCH 30.1 pg (26.0-34.0); MCHC 31.8 g/dL (28.0-37.0); MCV 94.6 fL (80.0-100.0); MONOCYTES 9.6 % (1.0-8.0); PLATELET COUNT 190 thou/uL (150-400); POLYS 59.4 % (36.0-66.0); RBC 3.53 mil/uL (4.20-5.00); WBC 4.1 thou/uL (4.0-11.0)
[2021-07-12 11:08] LABS: ALBUMIN 1.9 g/dL (3.4-5.0); CALCIUM 8.5 mg/dL (8.5-10.1); CREATININE 1.6 mg/dL (0.6-1.0); POTASSIUM 4.2 mmol/L (3.5-5.1); TOTAL BILIRUBIN 0.4 mg/dL (0.2-1.0); TOTAL PROTEIN 5.6 g/dL (6.4-8.2)
[2021-07-12 12:29] LABS: ANISOCYTOSIS 1+
[2021-07-12 17:05] VITALS: BP 118/75
[2021-07-12 19:56] VITALS: BP 125/63
[2021-07-13 05:28] VITALS: BP 109/67
--- NOTE | 2021-07-13 06:00 | NUR ---
Pt. rested quietly during the night when checked on during frequent rounds. Po pain meds given for c/o coccyx pain (see emar) with some relief of pain noted. Bed alarm is on.
[2021-07-13 08:58] VITALS: BP 123/66
--- NOTE | 2021-07-13 09:25 | NUR ---
ASSUMED PT CARE THIS AM. PT IS ON SPECIAL CONTACT ISOLATION. PT HAS ILEOSTOMY AND NREPHROSTOMY TUBE. DID WOUND CARE ON THE BUTTOCK WITH NS, SILVADENE MORPHINE CREAM, XEROFORM AND SACRAL FOAM AND TOOK A PICTURE. PT TOLERATED DIET WELL THIS AM. WILL CONTINUE TO MONITOR PT. FOLLOW POC.
[2021-07-13 10:33] LABS: HEMATOCRIT 31.3 % (37.0-47.0); HEMOGLOBIN 9.5 gm/dL (12.0-15.0); MCH 30.2 pg (26.0-34.0); MCHC 30.4 g/dL (28.0-37.0); MCV 99.5 fL (80.0-100.0); RBC 3.14 mil/uL (4.20-5.00); WBC 4.4 thou/uL (4.0-11.0)
[2021-07-13 10:43] LABS: CALCIUM 7.8 mg/dL (8.5-10.1); CREATININE 1.8 mg/dL (0.6-1.0); MAGNESIUM 1.3 mg/dL (1.8-2.4); POTASSIUM 4.6 mmol/L (3.5-5.1)
[2021-07-13 15:57] VITALS: BP 94/67
--- NOTE | 2021-07-13 16:39 | NUR ---
Have called and reached [facility] sultanaor transferred to [facility] whose mailbox is full. Called again and lockstitch front edge tape sewer answered left name and number to call. Yesterday called throughout the day and could not reach anyone at [facility]. Margarita is still reviewing. Updated patients dtr.
[2021-07-13 19:25] VITALS: BP 124/81
--- NOTE | 2021-07-14 01:20 | NUR ---
ASSUMED PT CARE AT 1900.PT DENIED PAIN SO FAR.DRSG TO HIP AND COCCYX DONE,C/D/I.NEPHROSTOMY TUBE IN PLACE,NO DRAINAGE NOTED.ILEOSTOMY IN PLACE WITH GREENISH MODERATE OUTPUT.CHAVARRIA CATH IN PLACE WITH LIGHT YELLOW URINE.ISOLATION AND FALL PRECAUTIONS IN PLACE.CALL LIGHT WITHIN REACH.
[2021-07-14 06:47] LABS: HEMATOCRIT 30.8 % (37.0-47.0); HEMOGLOBIN 9.6 gm/dL (12.0-15.0); MCH 30.2 pg (26.0-34.0); MCHC 31.2 g/dL (28.0-37.0); MCV 96.7 fL (80.0-100.0); RBC 3.19 mil/uL (4.20-5.00); RDW 18.6 % (10.5-14.5); WBC 4.2 thou/uL (4.0-11.0)
[2021-07-14 07:41] LABS: CALCIUM 8.4 mg/dL (8.5-10.1); CREATININE 1.6 mg/dL (0.6-1.0); MAGNESIUM 2.2 mg/dL (1.8-2.4); POTASSIUM 4.4 mmol/L (3.5-5.1)
[2021-07-14] MEDS ORDERED: FLUCONAZOLE 10100 MG PO (07:56)
[2021-07-14] MEDS ORDERED: MINOCYCLINE 5050 M1 PO (07:56)
[2021-07-14] MEDS ORDERED: FENTANYL1 EACH TRANSDERM (07:57)
[2021-07-14] MEDS ORDERED: OXYCODONE HCL 55 MG PO (07:58)
[2021-07-14] MEDS ORDERED: REMERON 30 MG T30 M1 PO (07:59)
[2021-07-14] MEDS ORDERED: ALPRAZOLAM 0.50.5 M1 PO (07:59)
[2021-07-14] MEDS ORDERED: AMBIEN 5 MG TABL5 M1 PO (08:00)
[2021-07-14 08:10] VITALS: BP 138/55
--- NOTE | 2021-07-14 10:32 | NUR ---
ASSUMED PT CARE THIS AM. CHANGED COLOSTOMY BAG DUE TO LEAKEAGE THIS AM. DID WOUND DRESSING ON THE BUTTOCK THIS AM. PT IS ON ROOM AIR. PT HAS ILEOSTOMY, CHAVARRIA AND NEPHROSTOMY TUBE ON R FLANK IN PLACE. PT TOLERATE DIET AND MEDICATION THIS AM. WILL CONTINUE TO MONITOR PT. FOLLOW POC.
--- NOTE | 2021-07-14 14:06 | NUR ---
[facility] is reveiwing her dc orders/referral and checking ins. Rip Gabriel has an auth waiver for snf d/t the pandemic. Awaiting final acceptance for admission later today. 124C and covid NOW radid test from today faxed to admissions along with the skilled orders. Chart copy requested. Pt's dtr updated along with the care team. Pt agreeable to the dc plan to snf hopefully later today.
[2021-07-14 15:30] VITALS: BP 118/59
[2021-07-14 19:34] VITALS: BP 116/79
[2021-07-15 08:11] VITALS: BP 125/73
[2021-07-15 09:00] VITALS: BP 125/73
[2021-07-15 09:09] VITALS: BP 125/73
--- NOTE | 2021-07-15 15:06 | NUR ---
Margarita has [facility] for skilled care. Fxed orders, [id number], copies of new insurance cards. van for 1600. Notified patient and dtr. patient concerned facility will not have medications on time. Left message with MILENA Johnson regarding labs. RN has number for report. No further needs
--- NOTE | 2021-07-15 16:25 | NUR ---
ASSUMED CARE OF PT AT 0700. WAS CO OF SOME PAIN AND NASUEA. GIVEN PAIN MEDICATION AND ZOFRAN. ALL VIAL SIGNS WNL. PT DISCHARGED TO [place] [place] FOR REHAB.
== END 2021-07-15 16:49 | DRG 871 ==
LOC: ER 11:34 → 4S 18:47 → EROBS 18:47 → 4S 06-28 18:38
PROVIDERS: Hospitalist; Internal Medicine; Nurse Practitioner; Radiology Vascular & Interventional Radiology; Specialist; ADMIT Hospitalist; ATTEND Hospitalist
PROC: 0T25X0Z Change Drainage Device in Kidney, External Approach (ICD-10-PCS; principal; 2021-06-30)
DX: A41.59 Other Gram-negative sepsis (principal); L89.153 Pressure ulcer of sacral region, stage 3; L89.313 Pressure ulcer of right buttock, stage 3; E43 Unspecified severe protein-calorie malnutrition; G92.8 Other toxic encephalopathy; J18.9 Pneumonia, unspecified organism; N17.9 Acute kidney failure, unspecified; I48.21 Permanent atrial fibrillation; I42.9 Cardiomyopathy, unspecified; F32.2 Major depressive disorder, single episode, severe without psychotic features; N30.01 Acute cystitis with hematuria; Z16.342 Resistance to multiple antimycobacterial drugs; N13.9 Obstructive and reflux uropathy, unspecified; N20.0 Calculus of kidney; E86.0 Dehydration; N18.9 Chronic kidney disease, unspecified; E66.01 Morbid (severe) obesity due to excess calories; D64.9 Anemia, unspecified; Z20.822 Contact with and (suspected) exposure to COVID-19; I12.9 Hypertensive chronic kidney disease with stage 1 through stage 4 chronic kidney disease, or unspecified chronic kidney disease; E11.22 Type 2 diabetes mellitus with diabetic chronic kidney disease; F41.9 Anxiety disorder, unspecified; E78.00 Pure hypercholesterolemia, unspecified; F32.9 Major depressive disorder, single episode, unspecified; G47.33 Obstructive sleep apnea (adult) (pediatric); R53.81 Other malaise; E86.9 Volume depletion, unspecified; F43.20 Adjustment disorder, unspecified; Z90.49 Acquired absence of other specified parts of digestive tract; Z90.710 Acquired absence of both cervix and uterus; Z86.718 Personal history of other venous thrombosis and embolism; Z93.2 Ileostomy status; Z88.6 Allergy status to analgesic agent; Z87.891 Personal history of nicotine dependence; Z82.49 Family history of ischemic heart disease and other diseases of the circulatory system; Z83.6 Family history of other diseases of the respiratory system
CPT/HCPCS: 10195

== ENCOUNTER → 2021-08-01 | Outpatient (CLI) | payer BC ==
[~2021-08-01] MED LIST changes: +ALPRAZOLAM 0.50.5 M1 PO; +AMBIEN 5 MG TABL5 M1 PO; +FENTANYL1 EACH TRANSDERM; +MINOCYCLINE 5050 M1 PO; +OXYCODONE HCL 55 MG PO; +REMERON 30 MG T30 M1 PO; +ZOLOFT25 MG PO
== END ==
LOC: SJCVC 13:12
PROVIDERS: ATTEND Internal Medicine Cardiovascular Disease
DX: R94.31 Abnormal electrocardiogram [ECG] [EKG] (principal); I49.3 Ventricular premature depolarization; I10 Essential (primary) hypertension; E78.00 Pure hypercholesterolemia, unspecified; I48.21 Permanent atrial fibrillation; I42.9 Cardiomyopathy, unspecified; E11.9 Type 2 diabetes mellitus without complications; F32.9 Major depressive disorder, single episode, unspecified; G47.30 Sleep apnea, unspecified; Z79.899 Other long term (current) drug therapy; Z87.891 Personal history of nicotine dependence; Z88.8 Allergy status to other drugs, medicaments and biological substances

== ENCOUNTER 2021-08-09 15:55 | Inpatient (IN) | payer MEDICARE ==
[~2021-08-09] VITALS: Ht 144.8 cm; Wt 77.1 kg
--- NOTE | ~2021-08-09 | EMS ---
[address] [address] EMS Patient Care Report Name: ROBERTO ORELLANA Room #: 170-5 ADM IN M.R.#: [id number] Admission: 08/09/21 Attend Phys: Sandy Henderson Discharge: Date of : 49 Report #: [id number] THIS REPORT FOR: //name// Report Transmitted: 08/10/2021 08:29 EMS Care Summary [place], [place]/[facility] Incident [id number] @ 08/09/2021 15:11 Incident Location [address] [place] [address] Patient ROBERTO ORELLANA Female, 76 Years 1945 Patient Address [address] [place], [place] [id number] Patient History Other,Cardiac Arrythmia,Chronic Obstructive Pulmonary Disease (COPD),Diabetes,Hypertension (HTN),Kidney/Renal Failure,Hyperlipidemia,Anxiety,Hypothyroidism, Patient Allergies Codeine,Intravenous Dye, Patient Medications Other, Chief Complaint KIDNEY PAIN Disposition Transported No Lights/[place] Dispatch Reason Sick Person Transported To [facility] Narrative M41 WAS DISPATCHED TO A [facility] FOR A SICK. UPON ARRIVAL EMS FOUND PT IN ROOM ALONE. EMS WAS THEN GREETED BY RN AT [facility]. PT STATES THEY WERE AT [address] [address] EMS Patient Care Report Name: ROBERTO ORELLANA Room #: 170-5 ADM IN M.R.#: [id number] Admission: 08/09/21 Attend Phys: Sandy Henderson Discharge: Date of : 49 Report #: [id number] THE [facility] FOR [facility] AND FELL AND PASSED OUT A COUPLE DAYS AGO. PT WENT AND HAD LAB WORK DONE. BELIEVES TO HAVE UTI. PT WAS ASSISTED ONTO STRETCHER, GIVEN A MASK, AND BUCKLED INTO STRETCHER. VITALS WERE THEN GATHERED IN THE BACK OF THE [facility]. PT REMAINED STABLE THROUGHOUT TRANSPORT. REPORT WAS GIVEN TO RN AT [facility]. M41 BACK IN SERVICE JOSUÉ MCKEONB Initial Vitals @15:43P: 81,R: 16,BP: 85/63,Pain: 0/10,GCS: 15,SpO2: 94,Revised Trauma: 11, Assessments @15:43MENTAL:Place Oriented,Person Oriented,Event Oriented,Time Oriented,SKIN:HEENT:Eyes: Right Pupil: 3-mm,Eyes: Left Pupil: 3-mm,LUNG SOUNDS:ABDOMEN:PELVIS//GI:EXTREMITIES:Capillary Refill: Left Upper: < 2 Sec,PULSE:Radial: 2+ Normal,NEURO: Impression Urinary Tract Infection (UTI) Procedures @15:44 ALS Assessment Response: UnchangedSucceeded @15:45 BLS Assessment Response: Unchanged Timeline 15:09,Call Received 15:09,Dispatch Notified 15:11,Dispatched 15:12,En Route 15:41,On Scene 15:42,At Patient 15:42,Depart Scene 15:43,BP: 85/63 M,PULSE: 81,RR: 16 R,SPO2: 94 Ox,ETCO2: ,BG: ,PAIN: 0,GCS: 15, 15:44,ALS Assessment,Response: UnchangedSucceeded, 15:45,BLS Assessment,Response: Unchanged 15:50,At Destination 16:08,Call Closed Disclaimer v1.1 Copyright 2021 [employer] This EMS Care Summary contains data elements from the applicable legal record (which may be displayed differently). It is designed to provide pertinent information for the following purposes: continuity of care, clinical quality, [address] [address] EMS Patient Care Report Name: ROBERTO ORELLANA [facility] Room #: 170-5 ADM IN ..#: [id number] Admission: 08/09/21 Attend Phys: Sandy Henderson Discharge: Date of : 49 Report #: [id number] and state data reporting. The complete legal record is available to ED staff and administrators of the receiving hospital in [employer] Patient Tracker. All data is provided "as is."
[2021-08-09 15:59] VITALS: BP 112/45
--- NOTE | 2021-08-09 16:46 | NUR ---
Pt fentanyl patch removed and wasted with ABIGAIL Hernandez.
[2021-08-09 16:56] LABS: ABSOLUTE NEUTROPHILS 4.1 thou/uL (1.4-8.2); BASOPHILS 0.8 % (0.0-2.0); EOSINOPHILS 3.5 % (0.0-3.0); HEMATOCRIT 41.2 % (37.0-47.0); HEMOGLOBIN 13.5 gm/dL (12.0-15.0); LYMPHOCYTES 18.5 % (24.0-44.0); MCH 30.4 pg (26.0-34.0); MCHC 32.7 g/dL (28.0-37.0); MONOCYTES 8.3 % (1.0-8.0); PLATELET COUNT 289 thou/uL (150-400); POLYS 68.9 % (36.0-66.0); RBC 4.43 mil/uL (4.20-5.00); RDW 16.4 % (10.5-14.5); WBC 5.9 thou/uL (4.0-11.0)
[2021-08-09 16:58] LABS: URINE BILIRUBIN NEGATIVE (Negative); URINE BLOOD 3+ (Negative); URINE CLARITY TURBID; URINE COLOR ORANGE; URINE GLUCOSE-RANDOM* NEGATIVE (Negative); URINE KETONES NEGATIVE (Negative); URINE NITRITE-REFLEX NEGATIVE (Negative); URINE PROTEIN (DIPSTICK) 2+ (Negative); URINE SPECIFIC GRAVITY >= 1.030 (1.005-1.035); URINE UROBILINOGEN 0.2 E.U./dl (0.2-1.0)
[2021-08-09 17:02] LABS: URINE LEUKOCYTES-REFLEX 2+ (Negative)
[2021-08-09 17:39] LABS: CASTS None Seen /LPF (None Seen); SQUAMOUS 0-3 Few /LPF (0-3); URINE WBC-REFLEX >25 Many /HPF (0-5)
[2021-08-09 17:40] LABS: YEAST-REFLEX Present (None Seen)
[2021-08-09 17:41] LABS: BACTERIA-REFLEX >30 Many /HPF (None Seen)
[2021-08-09 17:42] LABS: CRYSTALS None Seen /LPF (None Seen)
--- NOTE | 2021-08-09 19:13 | NUR ---
unable to obtain blood, lab unsuccessful. ERP notified. piledriver carpenter notified.
--- NOTE | 2021-08-09 19:16 | NUR ---
REPORT GIVEN TO SAMEER HAYES
[2021-08-09 19:41] LABS: ALBUMIN 2.4 g/dL (3.4-5.0); CALCIUM 8.7 mg/dL (8.5-10.1); CREATININE 3.5 mg/dL (0.6-1.0); TOTAL BILIRUBIN 0.3 mg/dL (0.2-1.0); TOTAL PROTEIN 5.6 g/dL (6.4-8.2)
[2021-08-09 20:26] LABS: ALBUMIN 2.7 g/dL (3.4-5.0); CALCIUM 9.6 mg/dL (8.5-10.1); CREATININE 3.7 mg/dL (0.6-1.0); TOTAL BILIRUBIN 0.3 mg/dL (0.2-1.0); TOTAL PROTEIN 6.4 g/dL (6.4-8.2)
[2021-08-09 20:36] LABS: POTASSIUM 6.5 mmol/L (3.5-5.1)
[2021-08-09 22:00] VITALS: BP 87/60; BP 96/42
[2021-08-10] VITALS (7 sets, daily range): BP systolic 83–132; BP diastolic 46–67
--- NOTE | 2021-08-10 00:54 | NUR ---
PT BLOOD SUGAR WAS 60 WHEN CHECKED, PT WAS ALERT AND COMMUNICATING NORMALLY. FOLLOWED PROTOCAL AND PT WAS GIVEN 1 TUBE OF ORAL GLUCOSE, 2 GLUCOSE TABLETS, AND ONE ORANGE JUICE.
--- NOTE | 2021-08-10 01:15 | NUR ---
BLOOD SUGAR 95 POST 20 MINUTES AFTER HYPOGLCEMIA TREATMENT
[2021-08-10 01:52] LABS: HEMATOCRIT 31.9 % (37.0-47.0); MCH 30.2 pg (26.0-34.0); MCHC 32.1 g/dL (28.0-37.0); MCV 94.2 fL (80.0-100.0); RBC 3.39 mil/uL (4.20-5.00); RDW 16.4 % (10.5-14.5); WBC 5.9 thou/uL (4.0-11.0)
[2021-08-10 01:56] LABS: CALCIUM 8.4 mg/dL (8.5-10.1); CREATININE 3.4 mg/dL (0.6-1.0)
[2021-08-10 02:22] LABS: HEMOGLOBIN 10.2 gm/dL (12.0-15.0)
[2021-08-10 02:23] LABS: POTASSIUM 4.6 mmol/L (3.5-5.1)
--- NOTE | 2021-08-10 07:17 | EKG ---
[place] [address] [facility] 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: : 1945 Requested By: Medardo Field Order Number: [id number] MD: Uday Cota Measurements Intervals [place] Rate: 117 P: RI: QRS: 165 QRSD: 102 T: -1 QT: 320 QTc: 447 Interpretive Statements Atrial fibrillation Anterior infarct, old Compared to ECG 06/27/2021 12:52:03 Myocardial infarct finding now present Right-axis deviation no longer present Electronically Signed On 08-10-2021 7:17:04 PROJECT HIRE by Uday Cota [email or web address] <ELECTRONICALLY SIGNED> By: Uday Cota MD, [facility] 08/10/21 0717 1614 161 Uday Cota MD, FACC /EPI
--- NOTE | 2021-08-10 07:18 | EKG ---
[place] [address] [facility] 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
--- NOTE | 2021-08-10 08:11 | NUR ---
END OF SHIFT SUMMARY: PT RESTING FOR MOST OF THE EVENING WITH NO COMPLAINTS. PT DID REMAIN IN TRENDELENURG POSTITION ALL NIGHT FOR B/P MAINTAINCE. ORDER WAS EVENTUALLY OBTAINED FOR MEDICATION FOR B/P MANAGEMENT AND THEY WERE STARTED. PT B/P GAIL AND THEN REMAINED STABLE FOR THE REMAINDER OF THE NIGHT. BLOOD SUGAR DID DROP AROUND 0000 WHEN CHECKING FOR INSULIN ADMINISTRATION. PROTOCOL WAS FOLLOWED AND BLOOD SUGAR DID RISE AND PT REMAINED STABLE THE REST OF THE EVENING. CALL LIGHT REMAINED IN REACH ALL NIGHT. COLOSTOMY BAG WAS EMPTIED UPON PT REQUEST.
--- NOTE | 2021-08-10 09:53 | NUR ---
IV TEAM BEDSIDE STARTING CENTRAL LINE AT THIS TIME
--- NOTE | 2021-08-10 11:49 | NUR ---
CL PLACED FOR RENAL FAILURE AND NEED FOR LEVOPHED
--- NOTE | 2021-08-10 14:52 | NUR ---
LAB REPORTS PT BLOOD CULTURES ARE POSITIVE FOR GRAM POSITIVE COCCI
--- NOTE | 2021-08-10 15:41 | NUR ---
PT ADMITTED RELATED TO HYPOTENSION. CM REVIEWED CHART AND SPOKE WITH CARE TEAM. CM CALLED AND SPOKE WITH PT'S DTR JOSE LUIS MEYER . PT IS FAMILIAR TO CM FROM PREVIOUS ADMISSIONS. PT HAD DISCHARED FROM HER 07/15/21 TO [facility]. DTR INIDCATED THAT PT HAD BEEN THERE PRIOR TO ADMISSION STILL SKILLED. SHE INDICATED THAT PT HAD JUST FINISHED ABX FOR INFECTION ABOUT A WEEK AGO. DTR WAS INTERESTED IN WHETHER PT WOULD BE LEAVING WITH THE NEPH TUBE AND EXPRESSED THAT THIS CYCLE JUST KEEPS HAPPENING. PT WILL FINISH ABX AND THEN DEVELOP ANOTHER INFECTION. SHE INDICATED THAT PLAN WOULD BE FOR PT TO RETURN TO [place] TO CONTINUE SKILLED [facility] ONCE MEDICALLY STABLE. CM TO SEND CLINICAL TO [place]. CM FOLLOWING REGARDING DC PLANNING.
[2021-08-11 02:45] VITALS: BP 120/62
[2021-08-11 06:29] LABS: HEMATOCRIT 32.2 % (37.0-47.0); HEMOGLOBIN 10.5 gm/dL (12.0-15.0); MCH 30.6 pg (26.0-34.0); MCHC 32.5 g/dL (28.0-37.0); MCV 94.2 fL (80.0-100.0); RBC 3.42 mil/uL (4.20-5.00); RDW 16.8 % (10.5-14.5); WBC 4.6 thou/uL (4.0-11.0)
[2021-08-11 06:48] LABS: CALCIUM 8.6 mg/dL (8.5-10.1); MAGNESIUM 1.5 mg/dL (1.8-2.4); POTASSIUM 4.9 mmol/L (3.5-5.1); TOTAL BILIRUBIN 0.3 mg/dL (0.2-1.0); TOTAL PROTEIN 5.4 g/dL (6.4-8.2)
[2021-08-11 06:54] LABS: CREATININE 2.3 mg/dL (0.6-1.0)
[2021-08-11 10:59] VITALS: BP 85/61
--- NOTE | 2021-08-11 16:20 | NUR ---
CM FAXED UPDATES TO [place]. CM FOLLOWING REGARDING DC PLANNING.
--- NOTE | 2021-08-11 17:54 | NUR ---
Pt titrated off of Levophed. Pt tolerating well. Provider notified. Provider gives verbal order to downgrade inpatient status to [facility]. WOUNDCARE ALSO CONSULTED DUE TO MULTIPLE BEDSORES ON RIGHT ANKLE AND BUTTOX.
--- NOTE | 2021-08-11 18:48 | NUR ---
Spoke with Dr. Rigoberto Braga via phone for wound care consult. Explained to him about pts current wounds and need for wound care. Orders given and reports that wound care will be seening patient first thing in the morning.
[2021-08-11 20:22] VITALS: BP 106/53
[2021-08-11 22:02] VITALS: BP 133/58
--- NOTE | 2021-08-12 03:57 | NUR ---
PT ARRIVED ON THE UNIT AT 2200 IN A STABLE CONDITION.PT WAS ORIENTED TO THE ROOM AND EDUCATED ON THE USE OF CALL LIGHT. PT HAS NEPHROSTOMY,CHAVARRIA AND ILEOSTOMY BAG IN PLACE. PICTURES OF WOUND WAS TAKEN AND DRSG CHANGE DONE. PT IS ON RA. FALL PRECAUTIONS IN PLACE. WILL CONTINUE TO MONITOR.
[2021-08-12 06:16] LABS: HEMATOCRIT 26.7 % (37.0-47.0); HEMOGLOBIN 8.6 gm/dL (12.0-15.0); MCH 30.4 pg (26.0-34.0); MCHC 32.1 g/dL (28.0-37.0); MCV 94.8 fL (80.0-100.0); RBC 2.82 mil/uL (4.20-5.00); RDW 16.8 % (10.5-14.5); WBC 4.5 thou/uL (4.0-11.0)
[2021-08-12 06:29] LABS: ALBUMIN 1.5 g/dL (3.4-5.0); CREATININE 1.6 mg/dL (0.6-1.0); PHOSPHORUS 2.6 mg/dL (2.5-4.9)
[2021-08-12 06:31] LABS: CALCIUM 6.6 mg/dL (8.5-10.1); POTASSIUM 3.5 mmol/L (3.5-5.1)
[2021-08-12 08:05] VITALS: BP 117/64
[2021-08-12 12:00] VITALS: BP 122/62
[2021-08-12 16:40] VITALS: BP 118/56
--- NOTE | 2021-08-12 16:47 | NUR ---
No weekend dc anticipated. Margarita will need clinical update early next week.Will follow.
--- NOTE | 2021-08-12 17:53 | NUR ---
Patient sat up in the chair by PT, alert and oriented x 4, pain med given prn for pain. wound care provided. Ileostomy is solid for the first time per patient, nephrostomy tube not draining. [place] is intact, call light within reach, will continous monitoring.
[2021-08-12 19:13] VITALS: BP 123/73
--- NOTE | 2021-08-13 04:26 | NUR ---
ASSESSMENT DOCUMENTED.PT BEEN RESTING IN NO ACUTE DISTRESS.A/OX4.VSS.WOUNDS TREATMENT TO BUTTOCKS/SACRAL AREA COMPLETED,PT TOLERATED THE TX.PAIN CONTROLLED WELL WITH PRN ANALGESIC.CHAVARRIA DD.ILESOTOMY CARE COMPLETED.PT DENIES ANY CONCERNS AT THIS TIME.
[2021-08-13 08:15] VITALS: BP 144/72
--- NOTE | 2021-08-13 11:40 | NUR ---
ASSUMED CARE OF PT AT 0700 THIS MORNING. PT IS A/OX4 AND C/O PAIN IN THE SACRAL AREA. PT HAS NEPHROSTOMY TUBE IN RT FLANK WITH NO URINE IN THE BAG. ASSESSMENTS NOTED IN CHART AND OTHERWISE UNREMARKABLE. FALL PRECAUTIONS ARE IN PLACE. CALL LIGHT AND OTHER NEEDS ARE IN REACH. MEDS AND TX GIVEN NEEDED AND SCHEDULED. WILL MONITOR AND NOTE ANY CHANGES.
[2021-08-13 11:49] VITALS: BP 144/72
[2021-08-13 15:15] VITALS: BP 102/56
[2021-08-13 21:42] VITALS: BP 91/51
--- NOTE | 2021-08-14 07:10 | NUR ---
PT ALERT AND ORIENTED X4. MEDS AND FLUIDS GIVEN PER ORDERS. WOUND CARE PROVIDED- PT REFUSED TURNS AND REPOSITIONING ATTEMPTS THIS SHIFT. PT REQUESTED PROTECTIVE BOOT BE REMOVED- EDUCATION PROVIDED- PT AGAIN REQUESTED IT BE TAKEN OFF. NO OUTPUT VIA NEPHROSTOMY- NEPHROSTOMY DRESSING FIXED AND RESCURED WITH TAPE. MILDLY HYPOXIC OVERNIGHT- 2L NC PROVIDED, PT SATING HIGH 90S. SEE CHARTING FOR OTHER DETAILS
[2021-08-14 07:31] LABS: HEMATOCRIT 28.8 % (37.0-47.0); HEMOGLOBIN 9.3 gm/dL (12.0-15.0); MCH 30.8 pg (26.0-34.0); MCHC 32.4 g/dL (28.0-37.0); MCV 95.2 fL (80.0-100.0); RBC 3.03 mil/uL (4.20-5.00); RDW 16.9 % (10.5-14.5); WBC 5.2 thou/uL (4.0-11.0)
[2021-08-14 07:42] LABS: ALBUMIN 1.5 g/dL (3.4-5.0); CALCIUM 7.2 mg/dL (8.5-10.1); CREATININE 1.5 mg/dL (0.6-1.0); PHOSPHORUS 2.5 mg/dL (2.6-4.7); POTASSIUM 3.6 mmol/L (3.5-5.1)
[2021-08-14 08:30] VITALS: BP 100/62
--- NOTE | 2021-08-14 09:12 | NUR ---
RE-ASSUMED CARE OF PT AT 0700 THIS MORNING. PT HAS NO CHANGES SINCE REPORT WAS GIVEN LAST NIGHT. ASSESSMENTS NOTED IN CHART AND OTHERWISE UNREMARKABLE. CHANGED WOUND DRESSING IN SACRAL AREA WITH MED AND XEROFORM. FALL PRECAUTIONS ARE IN PLACE. CALL LIGHT AND OTHER NEEDS ARE IN REACH. MEDS AND TX GIVEN NEEDED AND SCHEDULED. WILL MONITOR PT AND WILL NOTE ANY CHANGES.
[2021-08-14 12:47] VITALS: BP 100/62
[2021-08-14 17:07] VITALS: BP 97/53
[2021-08-14 19:53] VITALS: BP 96/40
--- NOTE | 2021-08-15 04:50 | NUR ---
NO ACUTE CHANGES OVERNIGHT. WOUND CARE AND WOUND EDUCATION PROVIDED, PT REQUESTED NOT TO BE TURNED OVERNIGHT. OSTOMY REPLACED OVERNIGHT DUE TO LEAKAGE. PT VOIDED AROUND CHAVARRIA X1- CHAVARRIA REPOSITIONED, NO LEAKAGE SINCE. BLOOD SUGAR LOW OVERNIGHT- PO INTAKE ENCOURAGED. SEE CHARTING FOR OTHER DETAILS
[2021-08-15 05:02] VITALS: BP 135/56
--- NOTE | 2021-08-15 10:38 | NUR ---
A/O X 4, ROOM AIR, MAX ASSIST WITH TRANSFERS, CHAVARRIA IN PLACE, RIGHT NEHPROSTOMY TUBE, MID ABD OSTOMY, LEFT TRIPLE LUME IJ-ALL LUMENS PATENT AND POSTIVE BLOOD RETURN, PRESSURE WOUND ON BUTTOCKS-WILL BE CHANGED AFTER LUNCH PER PATIENT REQUEST, AFIB ON TLE, BS 68 @ BREAKFAST OJ GIVEN, OXYCODONE GIVEN FOR BUTTOCK PAIN 01/08.
--- NOTE | 2021-08-15 11:26 | NUR ---
Clinical updated faxed to [facility] in admissions at [place]. They will need to submit for new auth for snf admission.
[2021-08-15 16:02] VITALS: BP 129/64
[2021-08-15 20:17] VITALS: BP 108/41
[2021-08-16 05:35] VITALS: BP 102/48
--- NOTE | 2021-08-16 05:45 | NUR ---
RECEIVED CARE OF THIS PATIENT AT 1900. PATIENT ALERT AND ORIENTED X4. UP WITH ASSIST OF 1 AND WALKER. ACCUCHECK WAS 61, NO COVERAGE NEEDED. HAS AN OSTOMY, NEHPROSTOMY TUBE AND CHAVARRIA. REMAINS IN ISO FOR BACTERIA IN HER URINE. HAS L TL IJ.DENIES PAIN. SLEPT MOST OF NIGHT.
[2021-08-16 08:23] VITALS: BP 120/61
--- NOTE | 2021-08-16 11:32 | NUR ---
PATIENT WITH DRESSING CHANGE DONE PER WOOUND CARE THIS AM. MORPHINE CREAM APPLIED PER KEVIN WOUND RN.
--- NOTE | 2021-08-16 16:53 | NUR ---
Spoke with patients dtr who requested to sp with phys. She sp with Dr Gray with plan for patient to dc to [place]. Urologist that patient has seen in past Dr Chaudhry does not come to [facility] anymore. Patient will return to [place] with plan for outpatient urologist to schedule sx for patient at hospital that she has privlages.
--- NOTE | 2021-08-16 17:51 | NUR ---
PATIENT ALERT AND ORIENTED X 4 . C/O PAIN, CONTROLLED BY OXYCODONE. WOUND RN PERFORMED DRESSING CHANGES TODAY. PATIENT EMOTIONAL AND CRYING AT TIMES. ORDERD FOR XANAX PO. NEPH TUBE STILL WITH NO DRAINAGE. CHAVARRIA WITH YELLOW URINE WITH SEDIMENT
[2021-08-16 20:03] VITALS: BP 98/46
[2021-08-17] VITALS (7 sets, daily range): BP systolic 76–96; BP diastolic 38–55
--- NOTE | 2021-08-17 05:54 | NUR ---
RECEIVED CARE OF THIS PATIENT AT 1900. PATIENT ALERT AND ORIENTED X4. UP WITH ASSIST OF 1. ACCUCHECK WAS 86, NO COVERAGE NEEDED. CHAVARRIA PATENT YELLOW URINE WITH SEDIMENT. C/O PAIN AND ANXIETY, MED GIVEN FOR BOTH. SLEPT OFF AND ON DURING NIGHT.
--- NOTE | 2021-08-17 09:29 | NUR ---
PATIENT WITH SYSTOLIC BP IN THE 80'S. PATIENT AWAKE, ASYMPTOMATIC AT THIS TIME. CALL TO DR. HUTTON. ORDERS FOR 500ML BOLUS PLUS ORTHOSTATIC VITALS. ATTEMPTED ORTHOSTATIC VS, PATIENT WAS UNABLE TO STAND AND NEEDED MODERATE ASSISTANCE TO SIT.C/O "I FEEL SO WEAK TODAY'. EXPLAINED HER BP WAS LOWER THAN USUAL. BOLUS INITIATED.
[2021-08-17] MEDS ORDERED: LEVOFLOXACIN750 MG PO (10:58)
[2021-08-17] MEDS ORDERED: FLORANEX TABLE1 EACH PO (10:58)
[2021-08-17] MEDS ORDERED: LINEZOLID600 MG PO (10:58)
--- NOTE | 2021-08-17 15:21 | NUR ---
PATIENT WITH BP 76/50.ASYMPTOMATIC. DR. HUTTON CALLED. ORDERS TO HOLD ANXIOLYTICS IF BP BELOW 90 SYSTOLIC.
--- NOTE | 2021-08-17 17:21 | NUR ---
Patient stable to discharge. faxed orders to Margarita and rec confimration rec. Chart copied. van transport for 1700. Discussed with patient and she reports she is not ready to discharge. Discussed at length and patient wants to appeal dc. She spoke with pager who is Jessi Phelps [phone]. She reports her mother, patients dtr admitted to hospital with possible pna. She is haveing a workup and granddtr wants to be contact until she is better. Patient aware dtr admitted to hospital. Patient called insurance to start appeal process. Updated RN for granddtr to be notified. Updated phys appeal process. Cancelled transport and alerted [facility] of no dc.
--- NOTE | 2021-08-17 18:36 | NUR ---
PT WITH LIQUID STOOL IN OSTOMY-YESTERDAY STOOL NOTED TO BE SOFT NOT LIQUID. PT WITH LOW BP TODAY. DR. CHEW. GAVE 500ML BOLUS THIS AM. PATIENT UPSET AND EMOTIONAL ABOUT DISCHARGE BACK TO FACILITY.
--- NOTE | 2021-08-18 06:39 | NUR ---
PT REMAINED MODERATELY HYPOTENSIVE OVERNIGHT, PT REFUSED TURNED AND DRESSING CHANGE. OSTOMY REPLACED DUE TO LEAKAGE. PT HAS RESTED WELL OVERNIGHT WITH NO COMPLAINTS ASIDE FROM ASKING FOR PAIN MEDS
--- NOTE | 2021-08-18 12:19 | NUR ---
PT HAD SEROSANGUINOUS DRAINAGE FROM PICC LINE AND APPEARS ERYHEMA/ITCHINESS. CHANGED DRESSING AND I HAVE INFORMED DR. HUTTON.
--- NOTE | 2021-08-18 12:40 | NUR ---
PT INITIATED DISCHARGE APPEAL 08/17/21 WITH [employer] MEDICARE. JONATHAN CALLED [employer] [phone] THIS MORNING AND SPOKE WITH NUVIA WHO CONFIRMED CLINICAL FOR RECEIVED FROM [facility] LAST EVENING AND APPEAL APPROVED THRU 08/21/20. UNIT CM, CM DIRECTOR AND DR. HUTTON UPDATED.
--- NOTE | 2021-08-18 16:21 | NUR ---
ASSUMED CARE OF PT AT 0700, PT CO OF PAIN AROUND SACARAL AREA. DRESSING CHANGED WITH MORPHINE CREAM, XEROFORM AND ABD. PAIN MEDICATION GIVEN. BPS RUNNING SOFT, 90S OVER 50S BUT ASYMPTOMATIC. A0X4. AFEBRILE, NO RESPIRATORY DISTRESS. PT EXPRESSED ALOT OF ANXIETY OVER FAMILY SITUATION WITH DAUGHTER HAVING HAD CAR ACCIDENT YESTERDAY. CHANGED LEFT NECK PICC LINE, HAD SEROUSANGINOUS DRAINAGE. DR BRENNEN WATKINS AND BLOOD CULTURES ORDERED. PT WAS ABLE TO GET UP WITH THERAPY TODAY AND WALK SEVEN FEET. HEARTRATE WENT INTO 120S WITH THERAPY. WILL CONITNUE TO MONITOR.
[2021-08-18 19:03] VITALS: BP 79/60
[2021-08-18 21:00] VITALS: BP 120/97
[2021-08-19 08:15] VITALS: BP 102/78
--- NOTE | 2021-08-19 11:35 | NUR ---
Patients appeal approved. plan dc Sunday per phys. Faxed clinical to [place] and updated phys.
[2021-08-19 12:24] VITALS: BP 96/52
--- NOTE | 2021-08-19 13:43 | NUR ---
Updated Margarita with clinical info and alerted no dc this weekend plan dc on Sunday.
[2021-08-19 18:30] VITALS: BP 123/80
--- NOTE | 2021-08-19 19:49 | NUR ---
ASSUMED CARE OF PT AT 0700. PATIENT ORIENTED, CLEAR OVER DIMINISHED LUNG SOUNDS ON ROOM AIR. PAIN CONTROL BIGGEST ISSUE. BPS SOFT THROUGHOUT DAY, ONCE SBP>90, PO OXYCODONE GIVEN FOR PAIN. PT STATES PAIN IS PARTIALLY RESOLVED. DRESSINGS ON SACRAL AREA CHANGED PER ORDER. PT TEARFUL UPON ASSESSMENT, ANXIOUS ABOUT FAMILY MEMBER'S ILLNESS AND DISCHARGE PLAN.
--- NOTE | 2021-08-20 04:00 | NUR ---
PT VERY EMOTIONAL THIS SHIFT, FEELS SHE HAS DONE EVERTHING POSSIBLE TO PROMOTE HEALING BUT "HAS MONTHS TO GO". SHE REPORTS SHE DOES NOT WANT TO GO BACK TO CARE FACILITY "NO ONE CHECKS ON HER", PT DOES REPORT THAT SHE RECIEVES HER MEDS, MEALS, AND WORKS WITH THERAPY OFTEN. LEFT IJ NOTABLY INFECTED, INCERTION SITE IS WARM, RED, AND HAS PURULENT DRAINAGE PRESENT-THIS IS CONSITENT WITH PREVIOUS NOTES. NO BLOODWORK AVAILABLE FO THIS PATIENT IN 6 DATS,. CHANNEL OPENER SPRUE KNOCKER NOTIFIED-NO NEW ORDERS, DEFERRED TO PRIMARY TEAM. PT DECLINES TURNS, REPOSITIONING, AND WOUND CARE OVERNIGHT.
[2021-08-20 07:10] VITALS: BP 106/54
[2021-08-20 12:00] VITALS: BP 117/49
--- NOTE | 2021-08-20 14:05 | NUR ---
CALL TO DR HUTTON RE: 10-11 BEAT VRUN. PATIENT FREQUENTLY TACHYCARDIC. ASYMPTOMATIC. NO FURTHER ORDERS
[2021-08-20 16:00] VITALS: BP 104/59
--- NOTE | 2021-08-20 17:34 | NUR ---
UNABLE TO SIGN SHEET FOR MORPINE CREAM IT IS MISSING FROM IV BIN
--- NOTE | 2021-08-20 18:14 | NUR ---
PATIENT ALERT AND ORIENTED THIS SHIFT. DRESSING CHANGE DONE TO COCCYX. CHAVARRIA REMOVED PER DR HUTTON ORDER. PAIN MEDICINE GOEVEN JUDICIOUSLY. BP REMAINED OVER 100 SYSTOLIC TODAY. OSTOMY WITH LARGE AMOUNTS F LIQUID STOOL OUT
[2021-08-20 20:20] VITALS: BP 94/46
[2021-08-21 07:37] VITALS: BP 103/65
--- NOTE | 2021-08-21 08:09 | NUR ---
PT LYING IN BED. PURE WICK IN PLACE. LORTAB PROVIDING PAIN RELIEF. FREQUENT OBSERVATION.
--- NOTE | 2021-08-21 09:48 | NUR ---
VASCULAR ACCESS NURSE ROUNDING. CENTRAL LINE DRESSING NOTED TO BE WET. DRESSING CHANGED. SITE IS RED AND EXCORIATED. TENDER TO TOUCH. BLOOD CLUTURES ARE NEGATIVE. RECOMMEND REMOVAL AND PERIPHERAL IV PLACEMENT OR REPLACEMENT OF CENTRAL LINE DEPENDING ON THIS PATIENTS STATUS AND PLAN FOR IV ABX.
--- NOTE | 2021-08-21 15:27 | NUR ---
PATIENT VERY EMOTIONAL TODAY OVER ALL CARES. REMOVED CENTRAL LINE. RED, IRRITATED UNDER TEGADERM. PATIENT C/O ITCHING IN THAT AREA AND ALSO VAGINALLY. C/O PAIN. FRUSTRATED WITH SITUATION. PLANNING TRANSFER TOMORROW TO [facility].
[2021-08-21 20:35] VITALS: BP 89/27
--- NOTE | 2021-08-22 07:47 | NUR ---
PT LYING IN BED. PURE WICK IN PLACE. LORTAB PROVIDING PAIN RELIEF. RESTING COMFORTABLY. NO NEEDS VOICED. CALL LIGHT WITHIN REACH. FREQUENT OBSERVATION.
[2021-08-22 09:02] VITALS: BP 85/39
[2021-08-22 09:45] VITALS: BP 116/62
--- NOTE | 2021-08-22 12:45 | NUR ---
CALL TO [facility] FOR REPORT. GAVE REPORT ON PATIENT TO ABIGAIL HERNANDEZ. STAFF WAS FAMILIAR WITH PATIENT. ALL QUESTIONS ANSWERED. CHANGED ALL DRESSINGS PRIOR TO DC. USED LAST OF MORPHINE CREAM IN ROOM FOR DRESSING CHANGE. NO PAPER TO DOCUMENT ON FOUND FOR THIS CREAM.
--- NOTE | 2021-08-22 12:47 | NUR ---
OSTOMY CONSULT; I WAS ASKED TO ASSESS THE SITUATION RELATED TO THE OSTOMY. THE PERISTOMAL AREAS LOOKED EXCELLENT DURING THIS LENGTHY HOSPITALIZATION. I APPLIE AN EAKINS RING AND A FLAT 2 PIECE DEVICE WHICH IS PATIENT. DISCUSSED WITH ABIGAIL
--- NOTE | 2021-08-22 14:26 | NUR ---
Patient to dc to [facility] today. She is agreeable. Faxed orders, chart copied,willam barclay from [facility] for 1330. Notified grand dtr as her dtr recent dc from hospital.
== END 2021-08-22 14:00 | DRG 871 ==
LOC: ER 15:55 → 4S 17:49 → EROBS 17:49 → 4S 08-11 21:26
PROVIDERS: Nurse Practitioner Family; Physician Assistant; ADMIT Hospitalist; ATTEND Hospitalist
PROC: 02HV33Z Insertion of Infusion Device into Superior Vena Cava, Percutaneous Approach (ICD-10-PCS; principal; 2021-08-10)
DX: A41.9 Sepsis, unspecified organism (principal); L89.153 Pressure ulcer of sacral region, stage 3; L89.313 Pressure ulcer of right buttock, stage 3; N17.0 Acute kidney failure with tubular necrosis; E43 Unspecified severe protein-calorie malnutrition; I42.9 Cardiomyopathy, unspecified; N39.0 Urinary tract infection, site not specified; N13.9 Obstructive and reflux uropathy, unspecified; N18.9 Chronic kidney disease, unspecified; I95.9 Hypotension, unspecified; Z93.6 Other artificial openings of urinary tract status; L89.612 Pressure ulcer of right heel, stage 2; N20.0 Calculus of kidney; Z79.899 Other long term (current) drug therapy; Z68.36 Body mass index [BMI] 36.0-36.9, adult; Z20.822 Contact with and (suspected) exposure to COVID-19; F41.9 Anxiety disorder, unspecified; F32.A Depression, unspecified; E03.9 Hypothyroidism, unspecified; Z88.8 Allergy status to other drugs, medicaments and biological substances; I48.91 Unspecified atrial fibrillation; Z79.01 Long term (current) use of anticoagulants; E11.22 Type 2 diabetes mellitus with diabetic chronic kidney disease; E66.01 Morbid (severe) obesity due to excess calories
CPT/HCPCS: 10100; 10102

== ENCOUNTER 2021-08-25 14:03 | Inpatient (IN) | payer MEDICARE ==
[~2021-08-25] VITALS: Ht 144.8 cm; Wt 85.9 kg
--- NOTE | ~2021-08-25 | EMS ---
[facility] [address] [place] [address] EMS Patient Care Report Name: ROBERTO ORELLANA Room #: 209-P ADM IN M.R.#: [id number] Admission: 08/25/21 Attend Phys: Toni Stephens MD Discharge: Date of : 49 Report #: [id number] THIS REPORT FOR: //name// Report Transmitted: 08/26/2021 12:04 EMS Care Summary [place], [place]/[facility] Incident [id number] @ 08/25/2021 13:33 Incident Location [address] [facility] 513 Patient ROBERTO ORELLANA Female, 76 Years 1945 Patient Address [id number] [place], [place] [address] [place] [address] Patient History Other,Cardiac Arrythmia,Chronic Obstructive Pulmonary Disease (COPD),Diabetes,Hypertension (HTN),Kidney/Renal Failure,Hyperlipidemia,Anxiety,Hypothyroidism, Patient Allergies Codeine,Intravenous Dye, Patient Medications Other, Chief Complaint hypotension Disposition Transported No Lights/[place] Dispatch Reason Sick Person Transported To [facility] Narrative pt found seated in wheelchair, a&o, tearful and anxious. she states she just [facility] [address] [place] [address] EMS Patient Care Report Name: ROBERTO ORELLANA Room #: 209-P ADM IN M.R.#: [id number] Admission: 08/25/21 Attend Phys: Toni Stephens MD Discharge: Date of : 49 Report #: [id number] got out of [facility] 3 days ago after being hospitalized for sepsis. she states she hasn't felt well today . no c/o SOB, CP or fever. 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 she states, "I don't know what's wrong, I feel like I'm gonna ". staff got VS of BP 70/40, HR 125. pt req transport back to [facility]. pt helped to cot, VS, EKG, no suitable site for IV (pt had central line in hosp) transport w/o change. Initial Vitals @13:48P: 65,SpO2: 70, @13:51P: 252,SpO2: 93, @13:49P: 67,R: 20,BP: 89/55,Pain: 0/10,GCS: 15,SpO2: 93,Revised Trauma: 11, Assessments @13:40MENTAL:No Abnormalities,SKIN:No Abnormalities,HEENT:Head/Face: No Abnormalities,LUNG SOUNDS:General: Vomiting,ABDOMEN:General: Vomiting,PELVIS//GI:EXTREMITIES:PULSE:NEURO:Other, Impression Vomiting Procedures @13:40 ALS Assessment Response: Unchanged @13:45 Stretcher Response: Unchanged @13:52 3-Lead ECG Response: Unchanged Timeline 13:31,Call Received 13:31,Dispatch Notified 13:33,Dispatched 13:34,En Route 13:37,On Scene 13:40,At Patient 13:40,ALS Assessment,Response: Unchanged 13:45,Stretcher,Response: Unchanged 13:48,BP: / M,PULSE: 65,RR: R,SPO2: 70 Ox,ETCO2: ,BG: ,PAIN: ,GCS: , 13:49,BP: 89/55 M,PULSE: 67,RR: 20 R,SPO2: 93 Ox,ETCO2: ,BG: ,PAIN: 0,GCS: 15, 13:51,BP: / M,PULSE: 252,RR: R,SPO2: 93 Ox,ETCO2: ,BG: ,PAIN: ,GCS: , 13:52,3-Lead ECG,Response: Unchanged 13:53,Depart Scene 14:00,At Destination 14:14,Call Closed Disclaimer v1.1 Copyright 2021 [employer] This EMS Care Summary contains data elements from the applicable legal record [address] [address] EMS Patient Care Report Name: ROBERTO ORELLANA [facility] Room #: 209-P ADM IN M.R.#: [id number] Admission: 08/25/21 Attend Phys: Toni Stephens MD Discharge: Date of : 49 Report #: [id number] (which may be displayed differently). It is designed to provide pertinent information for the following purposes: continuity of care, clinical quality, and state data reporting. The complete legal record is available to ED staff and administrators of the receiving hospital in [employer]'s Patient Tracker. All data is provided "as is."
--- NOTE | ~2021-08-25 | EMS ---
[facility] [address] [place] [address] EMS Patient Care Report Name: ROBERTO ORELLANA Room #: REG STEVEN James#: [id number] Admission: 08/25/21 Attend Phys: Discharge: Date of : 49 Report #: [id number] THIS REPORT FOR: //name// Report Transmitted: 08/25/2021 14:02 EMS Care Summary [place], [place]/[facility] Incident [id number] @ 08/25/2021 13:33 Incident [id number] [place] [address] 513 Patient ROBERTO ORELLANA Female, 76 Years 1945 Patient Address [id number] [place] [address] [address] [place] [address] Patient History Other,Cardiac Arrythmia,Chronic Obstructive Pulmonary Disease (COPD),Diabetes,Hypertension (HTN),Kidney/Renal Failure,Hyperlipidemia,Anxiety,Hypothyroidism, Patient Allergies Codeine,Intravenous Dye, Patient Medications Other, Chief Complaint hypotension Disposition Transported No Lights/[place] Dispatch Reason Sick Person Transported To [facility] Narrative pt found seated in wheelchair, a&o, tearful and anxious. she states she just [facility] [address] [place] [address] EMS Patient Care Report Name: ROBERTO ORELLANA Room #: REG ER Sylvester.#: [id number] Admission: 08/25/21 Attend Phys: Discharge: Date of : 49 Report #: [id number] got out of [facility] 3 days ago after being hospitalized for sepsis. she states she hasn't felt well today . no c/o SOB, CP or fever. 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 she states, "I don't know what's wrong, I feel like I'm gonna ". staff got VS of BP 70/40, HR 125. pt req transport back to [facility]. pt helped to cot, VS, EKG, no suitable site for IV (pt had central line in hosp) transport w/o change. Initial Vitals @13:48P: 65,SpO2: 70, @13:51P: 252,SpO2: 93, @13:49P: 67,R: 20,BP: 89/55,Pain: 0/10,GCS: 15,SpO2: 93,Revised Trauma: 11, Assessments @13:40MENTAL:No Abnormalities,SKIN:No Abnormalities,HEENT:Head/Face: No Abnormalities,LUNG SOUNDS:General: Vomiting,ABDOMEN:General: Vomiting,PELVIS//GI:EXTREMITIES:PULSE:NEURO:Other, Impression Vomiting Procedures @13:40 ALS Assessment Response: Unchanged @13:45 Stretcher Response: Unchanged @13:52 3-Lead ECG Response: Unchanged Timeline 13:31,Call Received 13:31,Dispatch Notified 13:33,Dispatched 13:34,En Route 13:37,On Scene 13:40,At Patient 13:40,ALS Assessment,Response: Unchanged 13:45,Stretcher,Response: Unchanged 13:48,BP: / M,PULSE: 65,RR: R,SPO2: 70 Ox,ETCO2: ,BG: ,PAIN: ,GCS: , 13:49,BP: 89/55 M,PULSE: 67,RR: 20 R,SPO2: 93 Ox,ETCO2: ,BG: ,PAIN: 0,GCS: 15, 13:51,BP: / M,PULSE: 252,RR: R,SPO2: 93 Ox,ETCO2: ,BG: ,PAIN: ,GCS: , 13:52,3-Lead ECG,Response: Unchanged 13:53,Depart Scene 14:00,At Destination 14:14,Call Closed Disclaimer v1.1 Copyright 2021 [employer] This EMS Care Summary contains data elements from the applicable legal record [address] [address] EMS Patient Care Report Name: ROBERTO ORELLANA [id number] Admission: 08/25/21 Attend Phys: Discharge: Date of : 49 Report #: [id number] (which may be displayed differently). It is designed to provide pertinent information for the following purposes: continuity of care, clinical quality, and state data reporting. The complete legal record is available to ED staff and administrators of the receiving hospital in [employer]'s Patient Tracker. All data is provided "as is."
[~2021-08-25 14:03] MED LIST changes: +FLORANEX TABLE1 EACH PO; +LEVOFLOXACIN750 MG PO; +LINEZOLID600 MG PO
[2021-08-25 14:05] VITALS: BP 110/52
--- NOTE | 2021-08-25 14:36 | EKG ---
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
[2021-08-25 15:04] LABS: CALCIUM 8.4 mg/dL (8.5-10.1); CREATININE 1.8 mg/dL (0.6-1.0); POTASSIUM 4.5 mmol/L (3.5-5.1)
[2021-08-25 15:14] LABS: ALBUMIN 2.1 g/dL (3.4-5.0); DIRECT BILIRUBIN 0.1 mg/dL (<0.1-0.2); TOTAL BILIRUBIN 0.3 mg/dL (0.2-1.0); TOTAL PROTEIN 5.4 g/dL (6.4-8.2)
[2021-08-25 15:24] LABS: ABSOLUTE NEUTROPHILS 4.5 thou/uL (1.4-8.2); BASOPHILS 0.5 % (0.0-2.0); EOSINOPHILS 3.3 % (0.0-3.0); HEMATOCRIT 28.4 % (37.0-47.0); HEMOGLOBIN 9.5 gm/dL (12.0-15.0); LYMPHOCYTES 14.3 % (24.0-44.0); MCH 31.1 pg (26.0-34.0); MCHC 33.4 g/dL (28.0-37.0); MCV 93.1 fL (80.0-100.0); MONOCYTES 3.3 % (1.0-8.0); PLATELET COUNT 122 thou/uL (150-400); POLYS 78.6 % (36.0-66.0); RBC 3.05 mil/uL (4.20-5.00); RDW 15.3 % (10.5-14.5); WBC 5.8 thou/uL (4.0-11.0)
--- NOTE | 2021-08-25 15:39 | NUR ---
VAT CONSULTED IN ER FOR PIV VESSELS TOO DEEP 2 UNSUCCESSFUL ATTEMPTS. VANNA BASILIC WAS WIDELY PATENT WITH USG 4FR POWER MIDLINE TRIMMED TO 12CM INSERTED TO 0CM. PT TOLERATED WELL. BRISK BR. ML RELEASED FOR IMMEDIATE USE PER PROTOCOL
[2021-08-25 17:54] VITALS: BP 91/41
[2021-08-25 18:30] VITALS: BP 100/57
[2021-08-25 18:50] VITALS: BP 119/54
[2021-08-25 20:45] VITALS: BP 113/44
[2021-08-26] VITALS (9 sets, daily range): BP systolic 69–111; BP diastolic 22–64
--- NOTE | 2021-08-26 05:40 | NUR ---
ASSUME CARE 1900. PT/VITALS STABLE. INTERMITTENT LOWER BACK/RIGHT ANKLE PAIN. MODERATE RELIEF FROM PAIN MED. POOR TOLERANCE TO ACTIVITY. NEEDS ENCOURAGE TO PARTICIPATE IN ACTIVITY. ASSESSMENT CHARTED. PROGRESSIG SLOWLY TOWARDS POC. NO DISTRESS NOTED THROUGH THE NIGHT. ADEQUATE REST NOTED. BORDERLINE URINE OUTPUT. ILEOSTOMY/BRW LIQUID STOL NOTED. AFIB ON MONITOR WITH RATE CONTROLLED. PLAN IS TO CONTINUE WITH ABX THERAPY/MONITOR LAS AND VITALS. WILL CONTINUE TO MONITOR AND FOLLOW WITH POC
[2021-08-26 06:18] LABS: HEMOGLOBIN 7.9 gm/dL (12.0-15.0); MCH 30.8 pg (26.0-34.0); MCHC 32.8 g/dL (28.0-37.0); MCV 93.9 fL (80.0-100.0); RBC 2.55 mil/uL (4.20-5.00); RDW 15.2 % (10.5-14.5)
[2021-08-26 06:45] LABS: CALCIUM 7.7 mg/dL (8.5-10.1); CREATININE 1.6 mg/dL (0.6-1.0); POTASSIUM 4.2 mmol/L (3.5-5.1)
--- NOTE | 2021-08-26 13:23 | HC ---
[facility] [address] [place] [address] CONSULTATION Name: ROBERTO ORELLANA Room #: 209-P ADM IN M.R.#: [id number] Admission: 08/25/21 Attend Phys: Toni Stephens MD Discharge: Date of : 49 Report #: [id number] THIS REPORT FOR: cc: Donya Valdez MD, Nora P. MD Althoff, Jeffrey R. MD ~ DATE OF SERVICE: 08/26/2021 CHIEF COMPLAINT: Right heel and sacral pressure ulceration. HISTORY OF PRESENT ILLNESS: This is a 76-year-old female patient who is known to our service with a history of hypertension, diabetes, known sacral and heel pressure ulcers. She was noted to be hypotensive and has been admitted to the hospital. She has a staghorn calculus in the right kidney with a nephrostomy tube. 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 She believes that she requires surgery to resolve this, expresses some frustration and wishing to proceed with a surgical intervention if at all possible. I have been asked to see her with regard to wound care. She has some mild pain in her sacrum. Denies pain in her heel. PAST MEDICAL HISTORY: Positive for hypertension, high cholesterol, obstructive sleep apnea requiring CPAP, type 2 diabetes mellitus, prior hysterectomy, appendectomy, cholecystectomy, history of vertigo, history of prior DVT of her left leg, chronic atrial fibrillation. She is status post gastric sleeve, acute kidney injury staghorn calculus in the right kidney, urinary tract infection, history of small-bowel obstruction with exploratory laparotomy and ileostomy, history of depression and morbid obesity. SOCIAL HISTORY: Positive for occasional alcohol use, negative for tobacco use. FAMILY HISTORY: Noncontributory. MEDICATIONS: Include Levaquin, linezolid, acidophilus, famotidine, bacitracin, oxycodone, mirtazapine, alprazolam, zolpidem, calcium carbonate, cyanocobalamin, cholecalciferol. ALLERGIES: TO CODEINE. REVIEW OF SYSTEMS: CONSTITUTIONAL: The patient does complain of generalized weakness. Denies fever or chills. EYES: The patient denies visual changes, redness or drainage. ENT: The patient denies earache, nasal drainage, sore throat. CARDIOVASCULAR: The patient denies chest pain, palpitations, diaphoresis. PULMONARY: Denies cough, shortness of breath. GASTROINTESTINAL: Denies nausea or abdominal pain. She has an ileostomy. [facility] [address] [place] [address] CONSULTATION Name: ROBERTO ORELLANA Room #: 209-P [facility] IN [facility].#: [id number] Admission: 08/25/21 Attend Phys: Toni Stephens MD Discharge: Date of : 49 Report #: [id number] ORTHOPEDIC: The patient notes some pain in her sacral region as well as the left heel. Others systems in a 14-point review of systems are negative. PHYSICAL EXAMINATION: VITAL SIGNS: The patient's vital at this time include temperature of 36.7, pulse 58, respiratory rate 18, blood pressure 111/45. GENERAL: This is a well-developed female patient who appears somewhat chronically ill, in mild discomfort. HEENT: Head is normocephalic. Nose and throat clear. NECK: Supple. LUNGS: Diminished. HEART: Regular rhythm. ABDOMEN: Soft. Ileostomy functioning. Her pannus is examined. Really no erythema or induration or redness noted. Sacral region demonstrates a small unstageable sacral pressure ulceration. I do not palpate any bone or deep structures, although is mostly slough covered. She has a urostomy tube on the right side to drainage bag. EXTREMITIES: Lower extremities demonstrate an unstageable pressure ulcer to the right heel with dry stable eschar in place. Feet are otherwise pink, warm, and dry. LABORATORY DATA: Include sodium 141, potassium 4.2, chloride 110, CO2 of 22, BUN 14, creatinine 1.6, glucose of 78. White blood cell count of 4000 with a hemoglobin of 7.9, albumin is low at 2.1. CLINICAL IMPRESSION: 1. Unstageable sacral pressure ulceration. 2. Unstageable pressure ulceration to the right heel. 3. Urolithiasis with staghorn calculus in the right kidney. 4. Chronic renal insufficiency with creatinine of 1.8. She is status post ileostomy. 5. Type 2 diabetes mellitus. 6. Morbid obesity. RECOMMENDATIONS: At this point in time, we recommend quarter strength Dakin's moist gauze b.i.d. to the sacral ulcer. She will need q. 2 hour turning and positioning, Betadine paint "to the right heel." Prevalon boots while in bed. Findings have been discussed with the patient as well as with Dr. Kemp at the bedside. I appreciate being asked to see her in consultation. <ELECTRONICALLY SIGNED> By: Delio Aleman MD 08/26/21 1323 [id number] Delio Aleman MD /nt
--- NOTE | 2021-08-26 14:46 | NUR ---
CASE OPENED TO FOLLOW FOR DC PLANNING. PT IS WELL KNOWN TO CM FROM SEVERAL RECENT ADMISSIONS. SHE IS CURRENTLY GETTING SKILLED REHAB AT [facility] AND THEY DO NOT NEED A NEW INS AUTH IS SHE COMES BACK THIS WEEKEND. POSSIBLE DC TOMORROW PER THE ATTENDING. CLINICAL UPDATED FAXED TO [facility]. PT REFUSED THERAPY EVALS TODAY. WEEKEND RN WILL NEED TO CALL [facility] AT [phone] WITH REPORT AND ADVISE THEM OF DC. DC ORDERS INCLUDING THE SUMMARY AND INSTRUCTIONS WILL NEED TO BE FAXED TO [phone]. PT'S DTR JOSE LUIS WILL NEED TO BE NOTIFIED AND DOM CARRANZA ARRANGED PER [facility] [email or web address] [phone]. A CHART COPY HAS BEEN REQUESTED TODAY AND WILL NEED FINAL ORDERS AND UPDATED TO BE SENT WITH THE PT.
[2021-08-27] VITALS (8 sets, daily range): BP systolic 76–152; BP diastolic 43–82
[2021-08-27 03:08] LABS: HEMATOCRIT 26.9 % (37.0-47.0); HEMOGLOBIN 8.6 gm/dL (12.0-15.0); MCH 30.6 pg (26.0-34.0); MCHC 32.1 g/dL (28.0-37.0); MCV 95.3 fL (80.0-100.0); RBC 2.82 mil/uL (4.20-5.00); RDW 15.4 % (10.5-14.5); WBC 3.3 thou/uL (4.0-11.0)
[2021-08-27 03:15] LABS: CALCIUM 7.7 mg/dL (8.5-10.1); CREATININE 1.5 mg/dL (0.6-1.0)
--- NOTE | 2021-08-27 03:32 | NUR ---
NURSING NOTE: SHIFT SUMMARY: PT ALERT AND ORIENTED X4, MOVES ALL EXTREMITIES; CAN HELP WITH TURNS, AND FOLLOWS COMMANDS. AT APPROXIMATELY 0130, THIS NURSE WENT TO CHECK ON PATIENT. PATIENT DIFFICULT TO ARROUSE; SPEECH SLURRED AND PT CONFUSED TO WHERE SHE WAS. BP = 79/45 WITH MAP OF 57 . DAY RN REPORTED THAT PRESSURES HAVE BEEN SOFT AND PHYSICIAN AWARE. RETOOK BP AND IT WAS 125/58 BUT BG = 69. D50 GIVEN PER PROTOCOL AND 0300 BG = 87. PT DENIES PAIN,SOA, OR CONFUSION AT THIS TIME. NS RUNNING AT 100 MLS ORDERED. CURRENTLY RESTING WITH EYES CLOSED, RESP EVEN AND NON LABORED. ALL VS AND ASSESSMENTS CHARTED. WILL CONTINUE TO MONITOR.
--- NOTE | 2021-08-27 04:56 | HC ---
[facility] [address] [place] [address] CONSULTATION Name: ROBERTO ORELLANA Room #: 209-P ADM IN M.R.#: [id number] Admission: 08/25/21 Attend Phys: Toni Stephens MD Discharge: Date of : 49 Report #: [id number] THIS REPORT FOR: cc: Donya Valdez MD, Nora P. MD Barry, Joseph W. MD ~ DATE OF SERVICE: 08/26/2021 INFECTIOUS DISEASE CONSULTATION ATTENDING PHYSICIAN: Dr. Stephens. REASON FOR EVALUATION: Panniculitis. HISTORY OF PRESENT ILLNESS: Chart reviewed. The patient examined. This is a 76-year-old woman well known to myself, has extensive medical history over the course of the last 6 months. She is noted to have a large right-sided staghorn calculus and a nonfunctional kidney, has had issues with recurrent complicated urinary tract infections, often with systemic manifestations including sepsis, admitted now to the hospital multiple times including rehabilitation. Has not been able to have a more definitive treatment, which is surgery. She was recently hospitalized earlier in the month, I was not part of that care team. She was readmitted with hypotension (this has been an issue as of late). Did have some nausea, emesis. At that point hospitalization noted urine culture with multiple polymicrobial growths including Klebsiella and VRE. Blood culture with growth of Staphylococcus hominis 2/2 and Staphylococcus epidermidis in 07/03. She was discharged on therapy with linezolid, levofloxacin. As per the evaluation on her readmission to evaluate the hypotensive episode, coronavirus testing was negative. Lactic acid 3.8. Chest x-ray showed mild left basilar atelectasis. CT abdomen and pelvis, raised question of possible panniculitis, also showed the large staghorn calculus on the right with a right percutaneous nephrostomy tube in place. She is generally lucid at this point. She is in moderate distress. ALLERGIES: CODEINE. CURRENT MEDICATIONS: Include rivaroxaban, levothyroxine, oxycodone, insulin, famotidine, mirtazapine. Had received cefepime and linezolid as a one-time dose. PAST MEDICAL HISTORY: As described above. In addition, has hypertension, obstructive sleep apnea, diabetes mellitus type 2, staghorn calculus, recurrent UTIs, recent history of small-bowel obstruction post exploratory laparotomy with lysis of adhesions and ileostomy, anxiety, depression, chronic anemia, obesity. SOCIAL AND FAMILY HISTORY: Available in chart. REVIEW OF SYSTEMS: Otherwise, as noted above. [address] [address] CONSULTATION Name: ROBERTO ORELLANA BRIANNA Room #: 209-P [facility] IN .R.#: [id number] Admission: 08/25/21 Attend Phys: Toni Stephens MD Discharge: Date of : 49 Report #: [id number] PHYSICAL EXAMINATION: GENERAL: She is quite distressed. She is generally lucid, chronically ill-appearing and undernourished. VITAL SIGNS: Temperature 98, pulse 58, respirations 18, blood pressure 111/45. SKIN: Warm, dry, no rashes. HEENT: Normocephalic. Extraocular muscles intact. NECK: Supple. LUNGS: Diminished breath sounds. Few scattered crackles at the bases. HEART: Regular, has a soft systolic murmur. ABDOMEN: Mildly distended. Ostomy in place. Generally soft to palpation. SKIN: Sacral site has a stage 2-3 decubitus ulcer. There is no exposed hard tissue. There is some mild degree of inflammation. There is no significant induration. No cutaneous inflammatory eruption that I can appreciate. GENITOURINARY: Deferred. RECTAL: Deferred. LABORATORY DATA: Electrolytes: Sodium 141, potassium 4.2, chloride 110, bicarbonate 22, anion gap of 9, BUN and creatinine 14 and 1.6, glucose of 78. CBC: White count of 4.0, H and H 7.9 and 24.0, platelets of 92. CT as described above, large abdominal wall pannus, large ventral abdominal wall hernia containing multiple loops of small bowel and colon as well as a colostomy. No evidence of incarceration or obstruction. Extensive subcutaneous fat stranding at the pannus, suggesting possible cellulitis. Venous Doppler showed evidence of DVT. Lactic acid 3.8. ASSESSMENT AND PLAN: Hypotension, possibly secondary to septic shock. She has multiple areas potentially of focal infection including abdominal wall, complicated urinary tract infection. Cannot exclude an early pneumonitis as well. We will continue broad-spectrum antimicrobial therapy. Would be concerned about adverse drug effect in terms of the nausea, emesis, although she has additional reasons for that as well. She remains quite tenuous at this point. We will continue to monitor. Discussed with Dr. Stephens. <ELECTRONICALLY SIGNED> By: Raul Lagos MD 08/27/21 0456 1021 1250 Raul Lagos MD /nt
--- NOTE | 2021-08-28 04:00 | NUR ---
Assumed pt care at 1900. Pt is alert and oriented. No sign of distress noted. Pt is stable. Assessment completed and documented. Pain med administered upon request. Wound dressing done. Scheduled meds administered to pt. No acute event noted during the night. Continue to monitor. No further needs at this time.
[2021-08-28 04:06] VITALS: BP 86/52
[2021-08-28 04:24] LABS: CALCIUM 7.5 mg/dL (8.5-10.1); CREATININE 1.3 mg/dL (0.6-1.0); POTASSIUM 4.9 mmol/L (3.5-5.1)
[2021-08-28 05:03] LABS: HEMATOCRIT 27.2 % (37.0-47.0); HEMOGLOBIN 8.7 gm/dL (12.0-15.0); MCH 31.2 pg (26.0-34.0); MCHC 31.9 g/dL (28.0-37.0); MCV 97.9 fL (80.0-100.0); RBC 2.78 mil/uL (4.20-5.00); RDW 16.1 % (10.5-14.5); WBC 3.7 thou/uL (4.0-11.0)
[2021-08-28 08:10] VITALS: BP 98/44
[2021-08-28 11:50] VITALS: BP 80/44
[2021-08-28 15:45] VITALS: BP 114/50
[2021-08-28 20:10] VITALS: BP 108/58
[2021-08-29 04:18] VITALS: BP 150/68
[2021-08-29 08:05] VITALS: BP 107/61
[2021-08-29 11:50] VITALS: BP 101/73
--- NOTE | 2021-08-29 12:34 | NUR ---
CHART REVIEWED AND DISCUSSED WITH CARE TEAM. CM RECEIVED MESSAGE FROM DR Macias PT WILL NEED TRANSFER TO [facility] FOR NEPHRECTOMY. CM CALLED AND SPOKE TO [facility]. CLINICALS FAXED TO [facility]SFER CENTER PER REQUEST. CM CALLED TRANSFER BACK TO CONFIRM 3 HOURS LATER HAVE NOT HEARD BACK. [facility] INFORMED CM CLINICALS RECEIVED AND PASSED ONTO [facility]. CALLER SENT A MESSAGE TO [facility] REQUESTING ACCEPTACE OR NOT. CM NOTIFIED DR Colleen NAVAS STILL AWAITING ACCEPTANCE AND WILL KEEP UPDATED. CM FOLLOWING.
[2021-08-29 16:00] VITALS: BP 100/47
[2021-08-29 19:52] VITALS: BP 108/51
--- NOTE | 2021-08-29 21:55 | NUR ---
ASSUMED PT CARE AT AROUND 1915 HRS, PT IN BED, C/O ACHINESS,OXY PRN GIVEN. PT DID NOT WANT WOUND DRSG DONE YET. TALKATIVE AND IN A GOOD MOOD.LUE ELEVATED ON PILLOW. IV PATENT. IVF AND IV ABTS INFUSING.BLE ELEVATED. AFEBRILE.NEPHROSTOMY PATENT. PUREWICK WITH U/O.COLOSTOMY WITH SOME DARK GREEN SEMI FORMED STOOL.CALLS WITH NEEDS.
== END 2021-08-30 | DRG 871 ==
LOC: ER 14:03 → EROBS 17:16 → 2N 17:16
PROVIDERS: Student in an Organized Health Care Education/Training Program; ADMIT Hospitalist; ATTEND Hospitalist
PROC: 05HC33Z Insertion of Infusion Device into Left Basilic Vein, Percutaneous Approach (ICD-10-PCS; principal; 2021-08-25)
DX: A41.9 Sepsis, unspecified organism (principal); L89.323 Pressure ulcer of left buttock, stage 3; L89.313 Pressure ulcer of right buttock, stage 3; L89.153 Pressure ulcer of sacral region, stage 3; E43 Unspecified severe protein-calorie malnutrition; R65.21 Severe sepsis with septic shock; N39.0 Urinary tract infection, site not specified; I48.20 Chronic atrial fibrillation, unspecified; N17.9 Acute kidney failure, unspecified; I42.9 Cardiomyopathy, unspecified; Z16.24 Resistance to multiple antibiotics; Z68.41 Body mass index [BMI] 40.0-44.9, adult; M79.3 Panniculitis, unspecified; L89.610 Pressure ulcer of right heel, unstageable; Z20.822 Contact with and (suspected) exposure to COVID-19; E78.00 Pure hypercholesterolemia, unspecified; F41.9 Anxiety disorder, unspecified; F32.9 Major depressive disorder, single episode, unspecified; E66.01 Morbid (severe) obesity due to excess calories; N18.9 Chronic kidney disease, unspecified; N20.0 Calculus of kidney; I95.9 Hypotension, unspecified; E11.22 Type 2 diabetes mellitus with diabetic chronic kidney disease; K43.9 Ventral hernia without obstruction or gangrene; R53.81 Other malaise; E55.9 Vitamin D deficiency, unspecified; E53.8 Deficiency of other specified B group vitamins; E86.0 Dehydration; I12.9 Hypertensive chronic kidney disease with stage 1 through stage 4 chronic kidney disease, or unspecified chronic kidney disease; E03.9 Hypothyroidism, unspecified; N13.9 Obstructive and reflux uropathy, unspecified; D64.9 Anemia, unspecified; Z90.49 Acquired absence of other specified parts of digestive tract; Z90.710 Acquired absence of both cervix and uterus; Z86.718 Personal history of other venous thrombosis and embolism; Z88.6 Allergy status to analgesic agent; Z87.891 Personal history of nicotine dependence
CPT/HCPCS: 10081; 27000